=== PATIENT | female | born 1935 | race Caucasian/White ===

== ENCOUNTER 2018-06-04 20:19 | Inpatient (IN) | payer MEDICARE ==
[~2018-06-04 20:19] MED LIST: Heparin 1,000 UNITS/ML VIAL ONE
[2018-06-04] MEDS ORDERED: Lidocaine Viscous Sol 2% 15 ml UD Cup ONE (21:28)
[2018-06-04] MEDS ORDERED: Metoprolol Tartrate 5 MG/5 ML VIAL ONE (22:36)
[2018-06-04] MEDS ORDERED: Fleet Enema 133 ML BOT PR SCH (23:45)
[2018-06-04] MEDS ORDERED: Meropenem 2 GM in Admixture Fee 1 EACH IVPB SCH (23:45)
[2018-06-04] MEDS ORDERED: hydrALAZINE 20 MG/ML VIAL SLOW IVP PRN (23:45)
[2018-06-05] MEDS: Ipratropium Bromide 2.5 ml Neb NEB SCH ×3 (00:38→13:56)
[2018-06-05] MEDS: Sodium Chloride 0.45% 1,000 ML IV SCH (01:31)
[2018-06-05] MEDS: Acetaminophen 1,000 MG in Premix Bag 1 BAG IVPB PRN ×2 (01:39→21:00)
--- NOTE | 2018-06-05 03:56 | HP ---
HISTORY OF PRESENT ILLNESS: Eliana Barnes is an 83-year-old female who lives in [place]. She has been followed by Dr. Gibbs in the past. The patient presents to the emergency room, complaining of abdominal distention, bloating, and abdominal pain. She has a history of constipation. She has been taking iron. She reports having had a colonoscopy many years ago. She cannot recall when. She has been followed by Dr. Arvizu in the past. The patient on admission was found to have a white count of 8, hemoglobin 13. Comprehensive metabolic profile is essentially unremarkable with slightly elevated creatinine of 1.63. Looking at the QA records, she has had a history of chronic kidney disease and this creatinine elevation is on the lower side than of more normal side. She had a BNP of 215. She underwent a CAT scan of abdomen and pelvis suggested a splenic flexure mass, possibly malignancy with distention of the ascending and transverse colon and decompression of the distal colon. She has had an NG tube placed, small caliber. ALLERGIES: NONE. SOCIAL HISTORY: Tobacco, history of tobacco abuse. No use currently. Alcohol, none. MEDICATIONS: 1. Levothyroxine 75 mcg a day. 2. Furosemide 3 days a week. 3. Klor-Con 20 three days a week. 4. Plavix 75 mg a day. 5. Spironolactone 25 mg a day. 6. Iron 65 mg a day. 7. Calcium 600 mg a day. 8. a day. 9. Simvastatin 80 mg at bedtime. 10. Estradiol daily. 11. Amlodipine 5 mg a day. 12. Ranitidine 150 mg a day. 13. a day. 14. Metoprolol 25 mg a day. 15. Ambien 10 mg at bedtime. PAST SURGICAL HISTORY: Left carotid endarterectomy, partial thyroidectomy, ORIF of lumbar spine, hysterectomy, appendectomy. PAST MEDICAL HISTORY: 1. History of chronic back pain, lumbar surgery. 2. Hypothyroidism, treated medically. 3. Chronic obstructive pulmonary disease. 4. Hypertension. 5. PAD, Dr. Naif Singh has put a peripheral stent in her lower extremities. She has had a left carotid endarterectomy. Of note is that the patient reports that she saw Dr. Naif Singh last year, had a cardiac catheterization and she was told it was normal. REVIEW OF SYSTEMS: Ten-point noncontributory. PHYSICAL EXAMINATION: VITAL SIGNS: Weight 58 kg, blood pressure 180/53, heart rate 66, respirations 16, temperature 98.2 degrees. HEAD EARS EYES, NOSE, AND THROAT: Unremarkable. Sclerae nonicteric. SKIN: Nonjaundiced. LUNGS: Clear to auscultation. No wheezing. CARDIAC: Regular rate and rhythm. ABDOMEN: Soft, distended, tympanitic, and nontender. EXTREMITIES: No ankle edema. Palpable popliteal pulses. LABORATORY DATA: Sodium 137, potassium 4.2, GFR 28, BUN 22, creatinine 1.63. Liver function tests normal. White count 8, hemoglobin 13. ASSESSMENT AND PLAN: 1. History and CAT scan suggest splenic flexure tumor mass with obstruction. The patient is at risk for cecal perforation. She has an NG tube in place. We will leave it to suction. I have explained to her that I would recommend enemas tonight. GI consultation with colonoscopy, and if indeed there is obstruction, plan resection with colostomy. It was explained that this colostomy could be reversed in the future. Risks of infection, bleeding, and reoperation were explained. 2. Chronic obstructive pulmonary disease. 3. History of tobacco abuse. 4. Peripheral artery disease, history of stents in her legs and carotid endarterectomy. 5. Reports normal cardiac catheterization last year with Dr. Naif Singh. 6. Hypertension. Job ID: [id number]
[2018-06-05] MEDS ORDERED: Prevnar 13-Val Conj/PF 0.5 ML SYRINGE IM ONE (05:30)
[2018-06-05] MEDS: Pantoprazole 40 MG VIAL IVP SCH (09:22)
--- NOTE | 2018-06-05 12:57 | CON ---
DATE OF CONSULTATION: 06/05/2018 REASON FOR CONSULTATION: Colonic obstruction. CONSULTING PHYSICIAN: Dr. Roberto Carlos Law. HISTORY OF PRESENT ILLNESS: The patient is an 83-year-old female with past medical history of chronic lower back pain, hypothyroidism, COPD, hypertension, peripheral arterial disease, and tobacco abuse presenting with complaints of abdominal pain. She states that over the last 2 to 3 weeks she had been experiencing progressive worsening of her abdominal pain located primarily in the left lower quadrant but radiating to involve the entire abdomen. The pain is characterized as a cramping type sensation, constant, and would reach a severity of 10/10. The pain was worse with not having a bowel movement, but did not have any other clear exacerbating factors, better with passing gas and having a bowel movement. This was also associated with increased nausea, vomiting, and constipation that she has experienced "all her life." She states that she usually has approximately one solid bowel movement every 1 to 2 days that would require increased straining and sometimes the application of Vaseline to the anal orifice in order to facilitate defecation. Over the last 2 years, she has been taking iron supplements at the request of her primary care physician due to low iron, and has been having dark black solid stools since that time. Over the last 2 to 3 weeks, she has not noticed any significant change in her bowel habits with no change in stool caliber or frequency but does endorse a [place] type 1 stooling consistency. Otherwise, she denies any fevers, chills, dysphagia, odynophagia, GI bleeding, or weight loss. REVIEW OF SYSTEMS: A 10-category review of systems was obtained with all responses negative except for the pertinent positives as listed in HPI. PAST MEDICAL HISTORY: As per HPI. PAST SURGICAL HISTORY: Left carotid endarterectomy, partial thyroidectomy, ORIF of lumbar spine, hysterectomy, and appendectomy. FAMILY HISTORY: Denies any GI malignancies. SOCIAL HISTORY: Denies any tobacco, alcohol, or illicit drug use. OUTPATIENT MEDICATIONS: Reviewed. ALLERGIES: NO KNOWN DRUG ALLERGIES. PHYSICAL EXAMINATION: VITAL SIGNS: Temperature 97.9, pulse 52, blood pressure 159/62, respiratory rate 14, and saturating 98% on 2 L nasal cannula. LABORATORY DATA: CBC with a white blood cell count of 8.1, hemoglobin 13.4, hematocrit 42, and platelets 451. Chemistry with a sodium of 137, potassium 4.2, chloride 100, CO2 of 24, BUN 22, creatinine 1.63, glucose 135, AST 22, ALT 19, alkaline phosphatase 105, total bilirubin 0.4, albumin 4.2, lipase 17. CEA elevated at 9.74. IMAGING DATA: CT obtained prior to admission (only obtained through chart review). CAT scan suggesting a splenic flexure, tumor, or mass with probable obstruction as well as dilation of the colon proximal to this obstruction indicative of a colonic obstruction. ASSESSMENT AND PLAN: The patient is an 83-year-old female with past medical history of chronic lower back pain, hypothyroidism, chronic obstructive pulmonary disease, hypertension, peripheral arterial disease, and tobacco abuse, presenting with a colonic obstruction. Colonic obstruction: The patient is presenting with a 2 to 3 week history of progressive worsening, cramping abdominal pain located primarily in the left lower quadrant but radiating to involve the entire generalized abdomen. Per imaging, there is an obstructive type of mass/lesion located at the splenic flexure with dilation of the colon proximal to that, consistent with a colonic obstruction, which would generate her current clinical status. Upon interviewing the patient, she states that her last colonoscopy was greater than 5 to 10 years ago and performed by Dr. Arvizu with normal findings at that time. Based on the current constellation of symptoms and imaging performed outside this hospital, it is most consistent with a possible splenic flexure, colonic malignancy; however, the differential could include a hard stool plug (less likely) or ischemic colitis generating a masslike lesion contributing to obstruction. In order to characterize this lesion further, endoscopic intervention is recommended. RECOMMENDATIONS: 1. Would continue the patient on n.p.o. status in preparation for procedures today. 2. We will plan for a flexible sigmoidoscopy or possibly colonoscopy to visualize the entire colon and get a better idea of what if this lesion is at the splenic flexure as well as any synchronous lesions anywhere else in the colon. 3. Agree with the administration of Fleet Enema due to increased risk of perforation with oral prep required for usual colonoscopy. 4. We will confer with General Surgery Service about timing of possible surgery/resection of this lesion. 5. We will continue to follow. Please call with any questions. Job ID: [id number]
[2018-06-05] MEDS ORDERED: Fentanyl 250 MCG/5 ML VIAL ONE (13:31)
[2018-06-05] MEDS ORDERED: KETAMINE 100 MG/ML (5ML VIAL) ONE (13:45)
[2018-06-05] MEDS ORDERED: Bupivacaine HCl 0.5%/Epinephrine 1:200,000/PF 30 ml Vial ONE (13:50)
[2018-06-05] MEDS ORDERED: Lidocaine 2% PF 5 ML VIAL ONE (13:50)
[2018-06-05] MEDS ORDERED: Heparin 10,000 UNITS/1 ML VIAL ONE (13:50)
[2018-06-05] MEDS ORDERED: SUGAMMADEX SODIUM 200 MG/2 ML VIAL ONE (14:15)
[2018-06-05] MEDS ORDERED: Fleet Enema 133 ML BOT FS SCH (14:15)
--- NOTE | 2018-06-05 14:46 | PRG ---
DATE OF SERVICE: 06/05/2018 SUBJECTIVE: Eliana Barnes is doing well today. OBJECTIVE: VITAL SIGNS: Temperature 97.9, heart rate 52, blood pressure 159/62. NG tube output is not recorded. LUNGS: Clear to auscultation. CARDIAC: Regular rate and rhythm. No murmur or gallop. ABDOMEN: Soft, distended, tympanitic. NEUROLOGIC: She had an MO last night. LABORATORY DATA: CEA level is 9.74 this morning. Labs are not repeated. Preoperative hemoglobin 13 yesterday. The basic metabolic profile is normal. ASSESSMENT AND PLAN: Colon obstruction, possibly secondary to malignancy. Dr. Tinajero has seen her. We will plan colonoscopy on same anesthetic, and we will be prepared to do a laparotomy, left colon resection, colostomy. Risks and benefits discussed. She consents. Job ID: [id number]
[2018-06-05] MEDS ORDERED: Succinylcholine Chloride 20 MG/ML 10 ml SYRINGE FS ONE (15:27)
[2018-06-05] MEDS ORDERED: Rocuronium Bromide 10 MG/ML (10ML VIAL) ONE (15:27)
[2018-06-05] MEDS ORDERED: ePHEDrine/0.9% NaCl/PF SYRINGE 50 mg/10 ml ONE (15:27)
[2018-06-05] MEDS ORDERED: Calcium Chloride 1 GM/10 ML Abboject SYRINGE ONE ×2 (15:27→17:49)
[2018-06-05] MEDS ORDERED: Sodium Bicarb 50 MEQ/50 ML VIAL ONE (15:27)
[2018-06-05] MEDS ORDERED: Esmolol 100 MG/10 ML VIAL ONE (15:27)
[2018-06-05] MEDS ORDERED: EPINEPHrine 1 MG/10 ML Abboject SYRINGE ONE (15:27)
[2018-06-05] MEDS ORDERED: PROPOFOL 200 MG/20 ML VIAL ONE (15:27)
[2018-06-05] MEDS ORDERED: Hydrocortisone Sod Succ/PF 100 mg/2 ml Vial ONE (15:27)
[2018-06-05] MEDS ORDERED: Lidocaine 1% PF 5 ML VIAL ONE (15:27)
[2018-06-05] MEDS ORDERED: Norepinephrine 4 MG/4 ML VIAL ONE (16:54)
[2018-06-05] MEDS ORDERED: Sodium Bicarb 50 MEQ/50 ML Abboject 8.4% SYRINGE ONE (17:49)
[2018-06-05] MEDS ORDERED: Hydrocortisone Sod Succ/PF 250 mg/2 ml Vial ONE (17:51)
[2018-06-05] MEDS ORDERED: Ventilator Sedation Protocol 1 EACH FS SCH (18:00)
[2018-06-05] MEDS ORDERED: Lactated Ringer's 1,000 ML IV SCH ×2 (18:00)
[2018-06-05] MEDS ORDERED: Propofol BOLUS 1,000 MG/100 ML VIAL IV PRN (18:15)
[2018-06-05] MEDS ORDERED: DISCONTINUE PREVIOUS NARCOTIC PAIN MEDICATIONS AND BENZODIAZEPINES FS SCH (18:15)
[2018-06-05] MEDS ORDERED: Propofol 1,000 MG/100 ML VIAL IV PRN (18:15)
[2018-06-05] MEDS ORDERED: Fentanyl BOLUS 250 ML IVPB PRN (18:15)
[2018-06-05 18:45] LABS: Actual Bicarbonate (HCO3a) 16.2 mEq/L (22-28); Base Excess (BEa) -7.8 mEq/L (-2.0 to +3.0); CO2 Tension 28.6 mmHg (35.0-45.0); Calcium, Ionized 0.99 mmol/L (1.12-1.30); Carboxyhemoglobin (COHb) 0.2 gm% (0.0-3.0); Hemoglobin (Hb) 11.3 g/dL (12.0-16.0); O2 Tension (PaO2) 271.2 mmHg (> 60.0); Potassium - ABG Lab 3.98 mmol/L (3.70-5.30); pH, Arterial 7.37 (7.35-7.45)
[2018-06-05] MEDS: Lactated Ringer's 1,000 ML IV SCH (19:00)
[2018-06-05] MEDS ORDERED: Albuterol Sulfate 2.5 mg/3 ml Neb NEB SCH (19:00)
--- NOTE | 2018-06-05 19:18 | RAD ---
PORTABLE AP CHEST X-RAY 06/05/18 HISTORY: Patient on ventilator and intubated. Post surgery. COMPARISON: 06/04/18. FINDINGS: Endotracheal tube is noted in place with the tip overlying the T5-6 level and above the level of the radha. Nasogastric tube is noted in place with tip overlying the expected location of the gastric fu ndus. A left subclavian central venous catheter is noted in place with tip overlying the cavoatrial j unction. Dorsal column stimulator leads are again noted in place. There is mild increased density at the left lung base probably related to atelectasis. Calcified granuloma is seen at the right lung bas e. No pneumothorax is appreciated. The lungs are otherwise clear. Vascular calcifications seen in the thoracic aorta. Partial visualization of postsurgical changes of the lumbar spine. IMPRESSION: 1. Interval placement of lines and tubes as described above. 2. Atelectasis left lung base. POS: [facility]
[2018-06-05 19:22] LABS: INR-International Normal Ratio 1.8; Prothrombin Time 20.5 SEC (12.0-14.7)
[2018-06-05 19:23] LABS: #Monocytes 0.3 thou/uL (0.11-0.59); #Neutrophils 3.5 thou/uL (1.40-6.50); %Lymphocytes 19.9 % (21.0-51.0); %Monocytes 5.9 % (0.0-10.0); %Neutrophils 73.1 % (42.0-75.0); Hemoglobin 9.8 g/dL (12.0-16.0); Mean Corpuscular HGB CONC 33.9 g/dL (32.0-36.0); Mean Corpuscular Hemoglobin 31.5 pg (27.0-31.0); Mean Corpuscular Volume 92.9 fL (78.0-98.0); Mean Platelet Volume 7.6 fL (7.4-10.4); Platelet Count 153 thou/uL (130-400); RBC Distribution Width 12.1 % (11.5-14.5); Red Blood Cell (RBC) Count 3.11 mill/uL (4.20-5.40); White Blood Cell (WBC) Count 4.8 thou/uL (4.8-10.8)
[2018-06-05] MEDS: Piperacillin/Tazobactam 3.375 GM in Sodium Chloride 0.9% 100 ML IVPB SCH (20:00)
[2018-06-05] MEDS ORDERED: Enoxaparin Sodium 40 MG/0.4 ML SYRINGE SC SCH (21:00)
--- NOTE | 2018-06-05 21:09 | OP ---
DATE OF PROCEDURE: 06/05/2018 PROCEDURE: Flexible sigmoidoscopy. INDICATION FOR PROCEDURE: Splenic flexure mass with possible colonic obstruction. DESCRIPTION OF PROCEDURE: After the risks and benefits of the procedure were explained to the patient including risks of bleeding, infection, perforation, reactions to anesthesia, aspiration and/or pain, informed consent was obtained. The patient was then taken to the operating suite where general anesthesia was administered with endotracheal tube intubation. Once the patient was intubated and sedated. She was placed in the left lateral decubitus position in anticipation for the colonoscopy portion of the procedure. After a digital rectal exam was performed, the standard colonoscope was introduced into the rectum and advanced to approximately 40 cm, at which point significant resistance was encountered. Despite manipulations with the scope reduction further progress could not be made. However, at one point, there was visualization of non-colonic mucosa indicating perforation. The quality of the prep was poor with poor visualization of the colonic mucosa throughout the entire procedure and with visualization of non-colonic mucosa, the procedure was then terminated immediately and all equipment was withdrawn from the patient in anticipation for open surgery. DIGITAL RECTAL EXAM: Small external hemorrhoids were seen on external examination with perianal skin tags. COLON FINDINGS: Significant amount of black colored solid stool was seen throughout the entire colon, thereby making visualization extremely difficult with passage of the scope. The scope was able to be advanced to approximately 40-50 cm past the anal verge, at which point there was a significant amount of resistance. Despite manipulations with the scope, further visualization could not be achieved. However, at that time, there was a change in the lining of the mucosa with non-colonic mucosa visualized, at which point there was high degree of suspicion for perforation. Upon further evaluation, there appeared to be serosa type tissue, thereby confirming perforation of the colon. The procedure was then immediately aborted at that time with transfer of the patient to Dr. Law's care for surgery and colonic resection of the mass and now repair of perforation from the flexible sigmoidoscopy. On careful withdrawal, no other significant lesions were seen. Rectal retroflexion was not performed. IMPRESSION: 1. Poor colonic preparation with poor visualization of the colonic mucosa thereby precluding evaluation of the colonic mucosa making passage difficult. 2. Perforation of the colonic mucosa at approximately 40-50 cm past the anal verge. 3. Small external hemorrhoids and perianal skin tags. RECOMMENDATIONS: 1. We would defer to General Surgery Service for urgent laparotomy and repair of colonic perforation as well as surgical excision of the splenic flexure mass. 2. We will continue to follow. Please call with any questions. Job ID: [id number]
--- NOTE | 2018-06-05 21:45 | OP ---
DATE OF PROCEDURE: 06/05/2018 PREOPERATIVE DIAGNOSES: 1. Malignant obstruction, splenic flexure. 2. Transverse colon perforation with colonoscopy. POSTOPERATIVE DIAGNOSES: 1. Malignant obstruction, splenic flexure. 2. Transverse colon perforation with colonoscopy. 3. Malignant obstruction distal transverse colon with adherent omentum. 4. Transmural disease. PROCEDURE PERFORMED: Left subclavian vein triple-lumen catheter. Dr. Tinajero performed a flexible sigmoidoscopy, exploratory laparotomy, splenic flexure mobilization, resection of the distal transverse colon, splenic flexure, descending colon, sigmoid colon with Kiran's pouch marked with a 2-0 Prolene suture. Colostomy not formed. The patient was on high-dose pressors at the end of case. The colon to form the colostomy looked viable, but questionable. The patient had adhesiolysis performed and there was a window in the ileal mesentery and with high-dose pressors, a small bowel was questionably viable, thus decision was made to leave an open abdomen with an ABThera and take a second look tomorrow, pending clinical course. ANESTHESIA: General. INFUSIONS: Two units packed cells. DESCRIPTION OF PROCEDURE: The patient was taken to the operating room where under general anesthesia, placed a left subclavian vein central line. Infraclavicular approach performed. Subclavian vein cannulated. J-wire threaded. Seldinger technique was used to place a triple-lumen catheter, removed the J-wire, secured the catheter with 2-0 silk suture, sterile dressing applied. Aspirated blood, flushed with saline solution. Dr. Tinajero entered the room, performed a colonoscopy. He could not get past 40 cm and suspected a perforation of the sigmoid. The patient was then placed in a supine position. Abdomen prepared with ChloraPrep and draped in routine fashion. Briggs catheter was placed at the beginning of the procedure and left in place. Abdomen draped in routine fashion. Incision was made in midline, carried down through skin and subcutaneous tissue, midline fascia. Proximal colon was markedly dilated. There was a malignant tumor in the distal transverse colon with adherent omentum, it was transmural. The patient had a perforation of sigmoid colon. There are unexpected adhesions of the small bowel to the omentum into the colon, sigmoid. These were dense. Careful dissection carried out. Enterotomy sustained in the mid ileum. Segment of ileum resected using the LigaSure and 2-0 silk ties, performing [id number] anastomosis with staple technique, blue load 2 fires. Once this was completed, mesentery closed with 3-0 silk and anastomosis protected with interrupted Lembert suture with 3-0 silk. Good anastomosis palpated. The right colon was markedly dilated. Bookwalter retractor used for exposure. Distal transverse colon, omentum taken down from the mid transverse colon distally toward the splenic flexure using the cautery and LigaSure. A large amount of omentum left adherent to the malignant tumor with en bloc resection. The splenic flexure, descending sigmoid colon mobilized. The perforation of the sigmoid colon appreciated and distal to this, the colon was very adherent to the small bowel and careful dissection carried out. Lower sigmoid, upper rectum divided with a contour stapler. The left ureter identified, kept free of harm as the mesentery divided between clamps and 2-0 silk ties and LigaSure. Dissection carried out mobilizing the descending colon, splenic flexure, transverse colon, dividing the colon with a LAYLA stapler, proximal to the malignancy. The patient's pressure dropped and required pressors. Blood loss was probably 200 mL at most. The patient was aggressively resuscitated. The ileum had varying degrees of viability. At some point, I felt it was viable and other times it was dusky thus considering the mesenteric defect that resulted from the adhesiolysis, although the transverse colon appeared to be viable with the middle colic vessels left intact, directly visualized, it was felt best to leave an open abdomen and re-evaluate after she stabilizes. For this reason, abdominal cavity had been thoroughly irrigated with about 8 L of saline solution. Good hemostasis obtained with 3-0 silk sutures and LigaSure and cautery. Sponge and needle counts were correct. ABThera applied, open abdomen left and the patient transferred to the intensive care unit in critical condition on the ventilator. Job ID: [id number]
[2018-06-05 22:12] LABS: #Lymphocytes 0.6 thou/uL (1.20-3.40); #Monocytes 0.8 thou/uL (0.11-0.59); #Neutrophils 5.9 thou/uL (1.40-6.50); %Basophils 0.2 % (0.0-1.0); %Eosinophils 0.3 % (0.0-10.0); %Lymphocytes 8.1 % (21.0-51.0); %Monocytes 10.5 % (0.0-10.0); %Neutrophils 80.9 % (42.0-75.0); Hemoglobin 7.5 g/dL (12.0-16.0); Mean Corpuscular HGB CONC 33.7 g/dL (32.0-36.0); Mean Corpuscular Hemoglobin 31.3 pg (27.0-31.0); Mean Corpuscular Volume 92.7 fL (78.0-98.0); Mean Platelet Volume 7.1 fL (7.4-10.4); Platelet Count 330 thou/uL (130-400); RBC Distribution Width 11.9 % (11.5-14.5); White Blood Cell (WBC) Count 7.2 thou/uL (4.8-10.8)
[2018-06-05 23:11] LABS: Puncture Site LINE
[2018-06-05] MEDS: fentaNYL Citrate/PF 2,000 MCG in Sodium Chloride 0.9% 60 ML IV SCH (23:54)
[2018-06-06] MEDS: Piperacillin/Tazobactam 3.375 GM in Sodium Chloride 0.9% 100 ML IVPB SCH ×4 (00:15→18:02)
[2018-06-06] MEDS: Morphine 2 MG/ML SYRINGE SLOW IVP PRN (01:00)
[2018-06-06] MEDS: Lorazepam 2 MG/ML VIAL SLOW IVP PRN ×3 (01:22→21:45)
--- NOTE | 2018-06-06 03:37 | CON ---
DATE OF CONSULTATION: 06/05/2018 HISTORY OF PRESENT ILLNESS: Ms. Barnes is an 83-year-old female. Apparently, she has had abdominal pain for some time. History is obtained from the records and my discussion with Dr. Law since she is intubated. Her p.o. intakes probably dropped during this period of time, which has lasted over 3 weeks. She was found to have findings consistent with a bowel obstruction. She subsequently undergone operative procedure. She had intraoperative hypotension. It was not clear what the cause was, it was felt that it would be unwise to pull up an ostomy with the potential existing for bowel ischemia. She was transferred to the critical care unit and intubated. PAST MEDICAL HISTORY: Remarkable for; 1. Partial thyroidectomy. 2. Lumbar spine surgery. 3. Hysterectomy. 4. Appendectomy. 5. History of carotid endarterectomy. SOCIAL HISTORY: Nonsmoker, nondrinker, nondrug user. FAMILY HISTORY: Negative for lung disease or gastrointestinal disease in a young age. REVIEW OF SYSTEMS: Not obtainable. PHYSICAL EXAMINATION: VITAL SIGNS: Blood pressure improved by the time she arrived to the critical care unit. Blood pressure being high at 131/49. She is afebrile. Heart rate 95, respiratory rate in the teens, oximetry is 100%. HEENT: Pupils are reactive. Sclerae anicteric. NECK: Supple. LUNGS: Clear. HEART: Regular rhythm. S1, S2 are normal. Abdomen is bandaged. She has a wound VAC in place. EXTREMITIES: Warm. LABORATORY DATA: White count 4.8, hemoglobin 9.8, and platelets 153,000. Cortisol level was 34 drawn in the OR. Because of her hypotension, I recommended this followed by stress dose of steroids, but it turns out she does not have relative adrenal insufficiency, so we will need to continue steroids. She did have an elevated CEA at 9.74. IMPRESSION: Status post resection of an obstructing colon cancer. She will go back to the OR either tomorrow or the next day. She will remain mechanically ventilated and sedated. Empiric broad antimicrobial therapy has been initiated. I will be happy to follow the other physicians caring for. Routine lab and x-rays have been ordered. Critical care time, 30 minutes. Job ID: [id number] MTDD
[2018-06-06] MEDS: Lactated Ringer's 1,000 ML IV SCH ×3 (03:53→18:02)
[2018-06-06 04:10] LABS: Anion Gap 17 mmol/L (10-20); BUN (Urea Nitrogen) 21 mg/dL (9.8-20.1); Calc. Creatinine Clearance 30 mL/min (70-130); Calcium 6.5 mg/dL (7.8-10.44); Carbon Dioxide 14 mmol/L (23-31); Chloride 115 mmol/L (98-107); Estimated GFR-MDRD 39; Glucose 185 mg/dL (83-110); Magnesium 1.2 mg/dL (1.6-2.6); Potassium 3.8 mmol/L (3.5-5.1); Sodium 142 mmol/L (136-145)
[2018-06-06 04:15] LABS: Hemoglobin 9.5 g/dL (12.0-16.0); Mean Corpuscular HGB CONC 34.5 g/dL (32.0-36.0); Mean Corpuscular Hemoglobin 32.2 pg (27.0-31.0); Mean Corpuscular Volume 93.5 fL (78.0-98.0); Mean Platelet Volume 7.8 fL (7.4-10.4); Platelet Count 252 thou/uL (130-400); RBC Distribution Width 12.3 % (11.5-14.5); Red Blood Cell (RBC) Count 2.94 mill/uL (4.20-5.40); White Blood Cell (WBC) Count 7.1 thou/uL (4.8-10.8)
[2018-06-06 04:29] LABS: INR-International Normal Ratio 1.3; Prothrombin Time 16.7 SEC (12.0-14.7)
[2018-06-06 04:47] LABS: Phosphorus 3.3 mg/dL (2.3-4.7)
[2018-06-06] MEDS ORDERED: Norepinephrine 8 MG/250 ML BAG IVPB PRN (05:28)
[2018-06-06] MEDS ORDERED: Sodium Chloride 0.9% 1,000 ML IV SCH (05:30)
[2018-06-06 06:51] LABS: Band 62 % (5-11); Lymphocytes 6 % (21-51); MDiff Complete? YES; Metamyelocyte 2 % (0-0); Monocytes 10 % (0-10); Myelocyte 3 % (0-0); Neutrophil 17 % (42-75); Reflex for Review?? YES
[2018-06-06 07:10] LABS: Actual Bicarbonate (HCO3a) 13.8 mEq/L (22-28); Base Excess (BEa) -12.5 mEq/L (-2.0 to +3.0); CO2 Tension 33.3 mmHg (35.0-45.0); Calcium, Ionized 0.95 mmol/L (1.12-1.30); Carboxyhemoglobin (COHb) 0.8 gm% (0.0-3.0); Hemoglobin (Hb) 10.8 g/dL (12.0-16.0); Potassium - ABG Lab 3.61 mmol/L (3.70-5.30)
[2018-06-06 07:12] LABS: ALV-art Gradient 99.575 (0-20); Puncture Site RRA; pH, Arterial 7.24 (7.35-7.45)
--- NOTE | 2018-06-06 08:59 | RAD ---
PORTABLE CHEST: Date: 06/06/18 PROVIDED CLINICAL HISTORY: Respiratory insufficiency. FINDINGS: Comparison with 06/05/18. Significant interval change with respect to the prior examination is noted apparent. IMPRESSION: As above. POS: [facility]
[2018-06-06] MEDS: Pantoprazole 40 MG VIAL IVP SCH (09:21)
[2018-06-06] MEDS: Sodium Chloride 0.45% 1,000 ML IV SCH (09:23)
[2018-06-06] MEDS: Amiodarone 450 MG in Dextrose 5% in Water 250 ML IVPB SCH ×2 (10:14→17:56)
--- NOTE | 2018-06-06 10:32 | PRG ---
DATE OF SERVICE: 06/06/2018 SUBJECTIVE: Eliana Barnes is in ICU on the ventilator. She is postop day #1 colon resection and open abdomen ABThera treatment. She has been on a beta-juan in the past. She is now in intermittent atrial fibrillation, 100 to 120. When her heart rate is up, her blood pressure dropped in the 90 to 100, otherwise 110 to 115. Early this morning, she was having more bloody output of her ABThera drain and she then was on platelets. She received a unit of platelets and her PT was elevated, and she received a unit of fresh frozen plasma. Her drainage from her ABThera has diminished. Last night, she had a hemoglobin of 9.5 up from 7.5 previously, and she is given 1 unit of blood and her pressure improved. This morning, she is sedated on the ventilator. OBJECTIVE: VITAL SIGNS: Heart rate 100 to 115 atrial fibrillation, blood pressure 133/50. Urine output is 30 to 40 per hour. LUNGS: Clear to auscultation. CARDIAC: Irregularly irregular. ABDOMEN: Slightly distended and tender. EXTREMITIES: Unremarkable. LABORATORY DATA: Chest x-ray. ASSESSMENT AND PLAN: Open abdomen, status post colon resection for obstructing colon. PLAN: Expiration tomorrow. We would leave on the ventilator. We would try to control her atrial fibrillation and resuscitate her today. Job ID: [id number]
[2018-06-06 10:57] LABS: Anion Gap 15 mmol/L (10-20); BUN (Urea Nitrogen) 22 mg/dL (9.8-20.1); Calc. Creatinine Clearance 27 mL/min (70-130); Calcium 6.4 mg/dL (7.8-10.44); Carbon Dioxide 14 mmol/L (23-31); Chloride 116 mmol/L (98-107); Estimated GFR-MDRD 35; Glucose 190 mg/dL (83-110); Potassium 3.6 mmol/L (3.5-5.1); Sodium 141 mmol/L (136-145)
[2018-06-06 11:03] LABS: Band 56 % (5-11); Hemoglobin 11.6 g/dL (12.0-16.0); Lymphocytes 11 % (21-51); MDiff Complete? YES; Mean Corpuscular HGB CONC 33.6 g/dL (32.0-36.0); Mean Corpuscular Hemoglobin 31.2 pg (27.0-31.0); Mean Corpuscular Volume 92.8 fL (78.0-98.0); Mean Platelet Volume 7.3 fL (7.4-10.4); Metamyelocyte 2 % (0-0); Monocytes 3 % (0-10); Neutrophil 28 % (42-75); Platelet Count 220 thou/uL (130-400); RBC Distribution Width 12.9 % (11.5-14.5); Red Blood Cell (RBC) Count 3.71 mill/uL (4.20-5.40); White Blood Cell (WBC) Count 13.5 thou/uL (4.8-10.8)
--- NOTE | 2018-06-06 12:16 | PRG ---
DATE OF SERVICE: 06/06/2018 SUBJECTIVE: Eliana Barnes is sedated for mechanical ventilation. OBJECTIVE: VITAL SIGNS: Blood pressure 101/70, heart rate is 106, respiratory rate is 8 this morning, but now has increased to 20 because of metabolic acidosis. Blood pressure 109/44 at 1116 hours. LUNGS: Remarkable for coarse equal breath sounds. HEART: Irregular rhythm, S1 and S2 are normal. She has converted to atrial fibrillation. Amiodarone has been started. ABDOMEN: Distended. EXTREMITIES: Without edema. LABORATORY DATA: Sodium 141, potassium 3.6, chloride 116, bicarb 14, BUN 22, and creatinine 1.44. White count 13.5, hemoglobin 11.6, and platelets are 220,000. IMPRESSION: 1. Status post laparotomy for obstructing colon cancer. 2. Atrial fibrillation. She has a history of atrial fibrillation in the past. She is now on an amiodarone drip. 3. Hyperchloremic acidosis associated with volume resuscitation intraoperatively. Her ventilator at bedtime has been adjusted to correct her pH. We will continue with supportive care. She is tentatively on schedule to go back to the operating room tomorrow. Critical care time, 30 minutes. Job ID: [id number]
[2018-06-06] MEDS: Sodium Chloride 0.9% 500 ML IVPB SCH ×2 (16:03→17:38)
[2018-06-06 18:28] LABS: Band 58 % (5-11); Eosinophils 1 % (0-10); Hemoglobin 9.7 g/dL (12.0-16.0); Lymphocytes 6 % (21-51); MDiff Complete? YES; Mean Corpuscular HGB CONC 34.2 g/dL (32.0-36.0); Mean Corpuscular Hemoglobin 30.5 pg (27.0-31.0); Mean Corpuscular Volume 89.1 fL (78.0-98.0); Mean Platelet Volume 7.4 fL (7.4-10.4); Monocytes 4 % (0-10); Neutrophil 31 % (42-75); Platelet Count 194 thou/uL (130-400); Platelet Morphology Comment Appears Adequate; RBC Distribution Width 13.1 % (11.5-14.5); Red Blood Cell (RBC) Count 3.18 mill/uL (4.20-5.40); White Blood Cell (WBC) Count 13.4 thou/uL (4.8-10.8)
[2018-06-06] MEDS: fentaNYL Citrate/PF 2,000 MCG in Sodium Chloride 0.9% 60 ML IV SCH (19:02)
[2018-06-07] MEDS: Piperacillin/Tazobactam 3.375 GM in Sodium Chloride 0.9% 100 ML IVPB SCH ×5 (00:45→23:49)
[2018-06-07] MEDS: Lactated Ringer's 1,000 ML IV SCH ×2 (01:05→11:14)
[2018-06-07 04:42] LABS: Anion Gap 12 mmol/L (10-20); BUN (Urea Nitrogen) 24 mg/dL (9.8-20.1); Calc. Creatinine Clearance 24 mL/min (70-130); Calcium 6.6 mg/dL (7.8-10.44); Carbon Dioxide 17 mmol/L (23-31); Chloride 115 mmol/L (98-107); Estimated GFR-MDRD 30; Glucose 99 mg/dL (83-110); Potassium 3.4 mmol/L (3.5-5.1); Sodium 141 mmol/L (136-145)
[2018-06-07 04:43] LABS: Band 53 % (5-11); Hemoglobin 10.2 g/dL (12.0-16.0); Lymphocytes 6 % (21-51); MDiff Complete? YES; Mean Corpuscular HGB CONC 33.7 g/dL (32.0-36.0); Mean Corpuscular Hemoglobin 30.7 pg (27.0-31.0); Mean Corpuscular Volume 91.2 fL (78.0-98.0); Mean Platelet Volume 7.7 fL (7.4-10.4); Monocytes 7 % (0-10); Neutrophil 34 % (42-75); Platelet Count 198 thou/uL (130-400); RBC Distribution Width 13.3 % (11.5-14.5); White Blood Cell (WBC) Count 15.4 thou/uL (4.8-10.8)
[2018-06-07 06:34] LABS: Base Excess (BEa) -5.4 mEq/L (-2.0 to +3.0); Calcium, Ionized 0.94 mmol/L (1.12-1.30); Carboxyhemoglobin (COHb) 0.2 gm% (0.0-3.0); O2 Tension (PaO2) 110.4 mmHg (> 60.0); pH, Arterial 7.47 (7.35-7.45)
[2018-06-07 06:35] LABS: Puncture Site RRA
--- NOTE | 2018-06-07 09:12 | RAD ---
CHEST 1 VIEW: COMPARISON: 06/06/2018. HISTORY: Respiratory distress. Sepsis. Ventilated patient. FINDINGS: Redemonstration of endotracheal tube, nasogastric tube, and a left-sided central venous catheter, unc hanged in position. Dorsal column stimulators are also noted. There is atherosclerosis of the aorta . Normal cardiac silhouette. Stable calcified granuloma of the right lung base. No consolidation o r masses. No pneumothorax or osseous abnormalities. IMPRESSION: No acute cardiopulmonary process. POS: [facility]
[2018-06-07] MEDS: Pantoprazole 40 MG VIAL IVP SCH (09:30)
[2018-06-07] MEDS ORDERED: Potassium Phosphate 15 MMOL in Sodium Chloride 0.9% 250 ML 250 ML IV PRN ×2 (10:51→11:42)
[2018-06-07] MEDS ORDERED: CCU ELECTROLYTE REPLACEMENT PROTOCOL FS PRN ×2 (10:51→11:42)
[2018-06-07] MEDS ORDERED: Magnesium 2 GM/NS 0.9% 100 ML 2 GM in Premix Bag 1 BAG IVPB PRN ×2 (10:51→11:42)
[2018-06-07] MEDS ORDERED: Potassium Phosphate 12 MMOL in Sodium Chloride 0.9% 250 ML 250 ML IV PRN ×2 (10:51→11:42)
[2018-06-07] MEDS ORDERED: Potassium Chloride 40 MEQ in Premix Bag 1 BAG IVPB PRN ×2 (10:51→11:42)
[2018-06-07] MEDS ORDERED: Potassium Chloride 20 MEQ TAB PO PRN ×2 (10:51→11:42)
[2018-06-07] MEDS ORDERED: Potassium Chloride 40 MEQ in Sodium Chloride 0.9% 250 ML 250 ML IVPB PRN ×2 (10:51→11:42)
[2018-06-07] MEDS ORDERED: Magnesium Oxide 400 MG TAB PO PRN ×4 (10:51→11:42)
[2018-06-07] MEDS ORDERED: Potassium Phosphate 9 MMOL in Sodium Chloride 0.9% 100 ML IVPB PRN ×2 (10:51→11:42)
[2018-06-07] MEDS ORDERED: Phenylephrine HCL 10 MG/ML VIAL ONE (12:44)
[2018-06-07] MEDS ORDERED: Fentanyl 100 MCG/2 ML VIAL ONE (12:44)
--- NOTE | 2018-06-07 13:38 | PRG ---
DATE OF SERVICE: 06/07/2018 SUBJECTIVE: Eliana Barnes is doing well today. Plan is to take her to the operating room to wash her abdomen and more or less likely to form a colostomy. She is sedated. OBJECTIVE: VITAL SIGNS: Heart rate 104 and blood pressure 134/83. Gastric drainage 650 mL over 24 hours. Urine output 685 mL. ABThera 650 mL, 24 hours. LABORATORY DATA: White count 15, hemoglobin 10, 33% bands. Sodium 141, potassium 3.4 , chloride 115, carbon dioxide 17, creatinine 1.65, and BUN 24. ASSESSMENT AND PLAN: 1. Obstructing colon cancer, status post left colectomy, ABThera. Plan abdominal washout today. Colostomy formation. Bowel resection is indicated. I have talked to her , risks and benefits. 2. Respiratory failure. No acute pulmonary process. 3. Continue supportive care. Await pathology. Hopefully, can definitively close her abdomen today. Job ID: [id number]
--- NOTE | 2018-06-07 14:04 | PRG ---
DATE OF SERVICE: 06/07/2018 SUBJECTIVE: I met with Ms. Barnes's . I answered all his questions. She is hemodynamically stable overnight. OBJECTIVE: VITAL SIGNS: Heart rate is 100, respiratory rate 16, blood pressure 134/53. LUNGS: Clear. HEART: Regular rhythm. ABDOMEN: Tender. EXTREMITIES: Warm. She moves all extremities to command. She nods to questions. LABORATORY DATA: White count 15.4, hemoglobin 10.2, platelets 198. Sodium 141, potassium 3.4, chloride 115, bicarb 17, BUN 24, creatinine 1.65. PH 7.47, CO2 of 24, PO2 110. Her ventilator was turned down. Intake and output positive, 3359. IMPRESSION: 1. Status post resection of obstructing colon cancer for repeat abdominal exploration and washout today. 2. Acute kidney injury on top of chronic kidney disease, likely secondary to the operative procedure, abdominal third spacing of volume and transient hypotension. I suspect this will stabilize. 3. Advanced age. Hopefully, she will have her surgery today and hopefully she will have abdominal closure and a colostomy when she comes back. She will remain mechanically ventilated for now. Hopefully, she will wean in 24 to 48 hours. Critical care time 30 minutes. Job ID: [id number]
[2018-06-07] MEDS ORDERED: Rocuronium Bromide 10 MG/ML (10ML VIAL) ONE (14:47)
[2018-06-07] MEDS ORDERED: PHENYLEPHRINE-NS 100 MCG/ML 10 ML SYRINGE ONE (14:47)
[2018-06-07] MEDS ORDERED: PROPOFOL 200 MG/20 ML VIAL ONE (14:47)
--- NOTE | 2018-06-07 15:32 | OP ---
DATE OF PROCEDURE: 06/07/2018 PREOPERATIVE DIAGNOSES: Obstructing colon cancer, severe dehydration, open abdomen, status post resection of distal transverse, descending, sigmoid colon with balance segment colon stapled and status post small bowel resection with previously questionable viability. POSTOPERATIVE DIAGNOSES: Obstructing colon cancer, severe dehydration, open abdomen, status post resection of distal transverse, descending, sigmoid colon with balance segment colon stapled and status post small bowel resection with previously questionable viability with viable small bowel and colon. No resection necessary. PROCEDURES PERFORMED: Abdominal washout, ABThera removal, Bebeto application near the left pelvis over the ureter area where there was some oozing, colostomy, Seprafilm application with viscera and abdominal wall. Of note, no remaining omentum to cover the bowel. Wound VAC application. ANESTHESIA: General. BLOOD LOSS: Negligible. DESCRIPTION OF PROCEDURE: The patient was taken to the operating room, once in supine position under general anesthesia (previously on the vent), ABThera was removed, abdomen prepared with Betadine and draped in routine fashion. Abdominal cavity thoroughly irrigated with saline solution. Irrigant evacuated. There was no enteric leakage. No purulent material noted. Bowel was healthy. All bowel was viable. Colon had been previously mobilized and at this point, sponge and instrument counts were correct. A defect was made in the left lower quadrant, excising ellipse of skin, subcutaneous tissue, and a cruciate incision was made in the anterior rectus fascia. Muscle was split and posterior peritoneum/fascia opened, dilated two fingerbreadths in colon brought through this defect. Abdominal cavity irrigated. Irrigant evacuated. Bebeto applied over the ureter area and raw surface of Gerota fascia. Good hemostasis noted. Two sheets of Seprafilm placed between the viscera and the abdominal wall. Fascia closed with continuous suture and #1 PDS. Skin and subcutaneous tissues debrided sharply. Hemostasis was gained. Skin was approximated loosely in the midline about the umbilicus. Otherwise, left open above and low for wound VAC application. Colostomy maturation undertaken excising the staple line and placed in four quadrant Jeevan sutures of 3-0 Vicryl and simple sutures of 3-0 Vicryl to complete colostomy maturation. Colostomy appliance secured and wound Care Team placed wound VAC. The patient tolerated the procedure well. Job ID: [id number]
[2018-06-07] MEDS: Potassium Chloride 20 MEQ in Lactated Ringer's 1,000 ML IV SCH ×2 (16:03→23:49)
[2018-06-07] MEDS: fentaNYL Citrate/PF 2,000 MCG in Sodium Chloride 0.9% 60 ML IV SCH (16:11)
[2018-06-07] MEDS ORDERED: niCARdipine 20MG In NaCl 20 MG/200 ML BAG IVPB SCH (16:45)
[2018-06-07] MEDS ORDERED: niCARdipine HCl 25 MG in Sodium Chloride 0.9% 250 ML 240 ML IVPB PRN (19:49)
[2018-06-07] MEDS ORDERED: Sodium Chloride 0.9% 1,000 ML IV SCH (20:00)
[2018-06-07] MEDS: Enoxaparin Sodium 30 MG/0.3 ML SYRINGE SC SCH (20:58)
[2018-06-07] MEDS: Amiodarone 450 MG in Dextrose 5% in Water 250 ML IVPB SCH (23:49)
[2018-06-08] MEDS: Piperacillin/Tazobactam 3.375 GM in Sodium Chloride 0.9% 100 ML IVPB SCH ×3 (05:31→17:59)
[2018-06-08 05:36] LABS: Anion Gap 13 mmol/L (10-20); BUN (Urea Nitrogen) 23 mg/dL (9.8-20.1); Calc. Creatinine Clearance 25 mL/min (70-130); Calcium 6.4 mg/dL (7.8-10.44); Carbon Dioxide 17 mmol/L (23-31); Chloride 116 mmol/L (98-107); Estimated GFR-MDRD 32; Glucose 105 mg/dL (83-110); Potassium 3.9 mmol/L (3.5-5.1); Sodium 142 mmol/L (136-145)
[2018-06-08 05:37] LABS: Phosphorus 1.4 mg/dL (2.3-4.7)
[2018-06-08 05:39] LABS: Magnesium 0.9 mg/dL (1.6-2.6)
[2018-06-08 05:41] LABS: Hemoglobin 11.3 g/dL (12.0-16.0); Mean Corpuscular HGB CONC 32.1 g/dL (32.0-36.0); Mean Corpuscular Hemoglobin 29.6 pg (27.0-31.0); Mean Corpuscular Volume 92.3 fL (78.0-98.0); Mean Platelet Volume 8.3 fL (7.4-10.4); Platelet Count 171 thou/uL (130-400); RBC Distribution Width 13.5 % (11.5-14.5); Red Blood Cell (RBC) Count 3.83 mill/uL (4.20-5.40); White Blood Cell (WBC) Count 14.2 thou/uL (4.8-10.8)
[2018-06-08 05:50] LABS: Band 24 % (5-11); Lymphocytes 2 % (21-51); MDiff Complete? YES; Monocytes 2 % (0-10); Neutrophil 72 % (42-75)
[2018-06-08] MEDS ORDERED: Magnesium 2 GM/50 ML 2 GM in Premix Bag 1 BAG IVPB SCH (07:00)
[2018-06-08 07:17] LABS: Actual Bicarbonate (HCO3a) 17.3 mEq/L (22-28); Base Excess (BEa) -6.2 mEq/L (-2.0 to +3.0); CO2 Tension 28.2 mmHg (35.0-45.0); Calcium, Ionized 0.91 mmol/L (1.12-1.30); Carboxyhemoglobin (COHb) 0.4 gm% (0.0-3.0); Hemoglobin (Hb) 11.3 g/dL (12.0-16.0); O2 Tension (PaO2) 136.6 mmHg (> 60.0); Potassium - ABG Lab 3.88 mmol/L (3.70-5.30); pH, Arterial 7.41 (7.35-7.45)
[2018-06-08 07:19] LABS: Puncture Site RRA
[2018-06-08] MEDS ORDERED: Magnesium Sulfate 3 GM, Admixture Fee 1 EACH in Sodium Chloride 0.9% 100 ML IVPB SCH (07:30)
--- NOTE | 2018-06-08 07:56 | RAD ---
PORTABLE CHEST: COMPARISON: Prior day's study. HISTORY: Sepsis. Heart size appears enlarged. Endotracheal tube is in satisfactory position. Left subclavian line is unchanged in position. There is some minimal increased density in the bases probably related to don e subsegmental atelectasis, stable. Dorsal column stimulator is present. IMPRESSION: Stable exam. POS: [facility]
[2018-06-08] MEDS: Potassium Chloride 20 MEQ in Lactated Ringer's 1,000 ML IV SCH ×3 (08:06→22:21)
[2018-06-08] MEDS: Pantoprazole 40 MG VIAL IVP SCH (08:52)
--- NOTE | 2018-06-08 09:29 | PRG ---
DATE OF SERVICE: 06/08/2018 35 minutes of critical time. SUBJECTIVE: The patient is awake. She was on SIMV rate of 4 this morning with very low pressure support and breathing well. She will follow commands without difficulty. OBJECTIVE: VITAL SIGNS: Her temperature is 98.5, pulse 102, blood pressure 162/41, currently on amiodarone drip, but not on Levophed or nicardipine. Intake for 24 hours was 4561, output 1347. Weight 131 pounds. HEENT: Unremarkable. NECK: No JVD. CHEST: Clear anteriorly. CARDIAC: S1 and S2, regular. ABDOMEN: Colostomy in midline, wound VAC noted. EXTREMITIES: No edema. LABORATORY DATA: Sodium 142, potassium 3.9, BUN 23, creatinine 1.5, chloride 116, and CO2 of 17. White blood cell count 14.2, hematocrit 35.3, and platelet count 171. Her x-ray is clear. ASSESSMENT: Postop from laparotomy, currently on mechanical ventilation. PLAN: She can be extubated and observed. We may have to go down the IV fluid rate, will follow and check her several times throughout the day. Job ID: [id number]
[2018-06-08] MEDS: Lactated Ringer's 1,000 ML IV SCH (10:29)
--- NOTE | 2018-06-08 13:22 | PQF ---
CLINICAL DOCUMENTATION IMPROVEMENT CLARIFICATION FORM: ICD-10 Updated PLEASE DO AN ADDENDUM TO THE PROGRESS NOTE WITH ANY DOCUMENTATION UPDATES OR ADDITIONS AND CARRY THROUGH TO DC SUMMARY. THANK YOU. DATE: 06/08/18 ATTN: DR. RANDHAWA Please exercise your independent, professional judgment in responding to the clarification form. Clinical indicators are provided on the bottom of this form for your review Please check appropriate box(es): [ ] Sepsis due to: (Pna, UTI, gangrenous gall bladder, etc.) Due to: [ ] Device (please specify) [ ] Implant [ ] Graft [ ] Infusion [ ] Severe sepsis with acute organ dysfunction of: (Examples: respiratory failure, encephalopathy, acute kidney failure, other) [ ] Septic Shock [ ] Localized infection without sepsis [ ] Other diagnosis [ ] Unable to determine In addition, please specify: Present on Admission (POA): [ ] Yes [ ] No [ ] Unable to determine For continuity of documentation, please document condition throughout progress notes and discharge summary. Thank You. CLINICAL INDICATORS - SIGNS / SYMPTOMS / LABS WBC 13.5 (06/06) / 15.4 (06/07) BANDS 62 PULSE 116 (06/06) BP 86/37 / 93/48 RISKS: MALIGNANT TRANSVERSE COLON OBSTRUCTION WITH PERFORATION OPEN ABDOMEN (OP NOTE 06/05) ADVANCED AGE MULTIPLE COMORBIDITIES TREATMENT: CRITICAL CARE MONITORING IV FLUIDS (06/05-06/07) IV ZOSYN (06/05-PRESENT) COLON RESECTION (06/05) SERIAL LABS HIGH DOSE PRESSORS (OP NOTE 06/05) VENTILATOR SUPPORT (This form is maintained as a part of the permanent medical record) 2014 [employer]. All Rights Reserved RICHARD [email or web address] Office: [phone] [facility]
[2018-06-08] MEDS: Amiodarone 450 MG in Dextrose 5% in Water 250 ML IVPB SCH (13:44)
--- NOTE | 2018-06-08 15:12 | PRG ---
DATE OF SERVICE: 06/08/2018 SUBJECTIVE: Ms. Barnes is doing well today. She underwent abdominal washout, ABThera removal, colostomy formation, and definitive closure of abdominal wound yesterday. She is extubated this morning by Dr. Tsai. She is on CPAP currently. OBJECTIVE: VITAL SIGNS: Temperature 100.2 degrees, blood pressure 145/54, and respiratory rate 14. LUNGS: Clear to auscultation. CARDIAC: Regular rate and rhythm without murmur or gallop. ABDOMEN: Soft. Positive bowel sounds, although diminished. NG tube 150 over 24 hours. Urine output is good at 1147. LABORATORY DATA: This morning, her white count is 14 and hemoglobin 11.3. Sodium 142, potassium 3.9, BUN 123, and creatinine 1.55, improved from yesterday. Magnesium is low, and I have given her a bolus of magnesium. ASSESSMENT AND PLAN: Doing well status post left colon resection for obstructing colon cancer, ABThera placement, and subsequent ABThera removal and abdominal wall closure with colostomy. Continue supportive care. Continue NG tube, n.p.o. Await pathology. Job ID: [id number]
--- NOTE | 2018-06-08 15:40 | PRG ---
DATE OF SERVICE: 06/08/2018 SUBJECTIVE: Eliana Barnes is hemodynamically stable. OBJECTIVE: VITAL SIGNS: Blood pressure is 145/54, heart rate is 89, respiratory rate is 20, oximetry is 97. LUNGS: Clear. HEART: Regular rhythm. S1 and S2 normal. ABDOMEN: Soft and nontender. NEUROLOGIC: She makes eye contact. Follows commands. She moves all of her extremities. LABORATORY DATA: White count 14.2, hemoglobin 11.3, platelets 171. Sodium 142, potassium 3.9, chloride 116, bicarb 17, BUN 23, creatinine 1.55, 1.65 yesterday. PH 7.41, pCO2 is 28, pO2 is 136. IMPRESSION: Postop mechanical ventilation after resection of an obstructing colon cancer. PLAN: She will be followed by Dr. Tsai, was felt to be a candidate for extubation today. We will continue to follow since she has been seen by Dr. Tsai in the past. Job ID: [id number]
[2018-06-08] MEDS ORDERED: Acetaminophen 1,000 MG in Premix Bag 1 BAG IVPB PRN (16:13)
[2018-06-08] MEDS: Enoxaparin Sodium 30 MG/0.3 ML SYRINGE SC SCH (21:20)
[2018-06-09] MEDS: Piperacillin/Tazobactam 3.375 GM in Sodium Chloride 0.9% 100 ML IVPB SCH ×4 (00:15→17:39)
[2018-06-09] MEDS: Amiodarone 450 MG in Dextrose 5% in Water 250 ML IVPB SCH ×2 (05:05→20:34)
[2018-06-09] MEDS: Potassium Chloride 20 MEQ in Lactated Ringer's 1,000 ML IV SCH ×3 (05:06→18:20)
[2018-06-09 05:53] LABS: Hemoglobin 8.9 g/dL (12.0-16.0); Mean Corpuscular HGB CONC 32.9 g/dL (32.0-36.0); Mean Corpuscular Hemoglobin 30.9 pg (27.0-31.0); Mean Corpuscular Volume 93.9 fL (78.0-98.0); Mean Platelet Volume 7.9 fL (7.4-10.4); Platelet Count 187 thou/uL (130-400); RBC Distribution Width 13.7 % (11.5-14.5); Red Blood Cell (RBC) Count 2.89 mill/uL (4.20-5.40); White Blood Cell (WBC) Count 17.7 thou/uL (4.8-10.8)
[2018-06-09 05:57] LABS: Band 19 % (5-11); Eosinophils 1 % (0-10); Lymphocytes 2 % (21-51); MDiff Complete? YES; Monocytes 1 % (0-10); Neutrophil 77 % (42-75); Nucleated RBC 1 % (0)
[2018-06-09 06:06] LABS: Anion Gap 13 mmol/L (10-20); BUN (Urea Nitrogen) 24 mg/dL (9.8-20.1); Calc. Creatinine Clearance 24 mL/min (70-130); Calcium 6.7 mg/dL (7.8-10.44); Carbon Dioxide 18 mmol/L (23-31); Chloride 115 mmol/L (98-107); Estimated GFR-MDRD 30; Glucose 97 mg/dL (83-110); Magnesium 1.8 mg/dL (1.6-2.6); Potassium 4.7 mmol/L (3.5-5.1); Sodium 141 mmol/L (136-145)
[2018-06-09 07:18] LABS: Actual Bicarbonate (HCO3a) 16.5 mEq/L (22-28); Base Excess (BEa) -8.9 mEq/L (-2.0 to +3.0); CO2 Tension 34.2 mmHg (35.0-45.0); Calcium, Ionized 1.01 mmol/L (1.12-1.30); Carboxyhemoglobin (COHb) 0.8 gm% (0.0-3.0); Hemoglobin (Hb) 12.4 g/dL (12.0-16.0); O2 Tension (PaO2) 117.8 mmHg (> 60.0); Potassium - ABG Lab 4.54 mmol/L (3.70-5.30)
[2018-06-09 07:19] LABS: Puncture Site LB
[2018-06-09] MEDS: Morphine 2 MG/ML SYRINGE SLOW IVP PRN (08:21)
[2018-06-09] MEDS: Pantoprazole 40 MG VIAL IVP SCH (08:22)
--- NOTE | 2018-06-09 08:45 | PRG ---
DATE OF SERVICE: 06/09/2018 SUBJECTIVE: Ms. Barnes was extubated yesterday. She required BiPAP intermittently through the day yesterday. This morning, I was able to take the BiPAP off, and she communicated to me without much problem. OBJECTIVE: VITAL SIGNS: Her temperature is 97.9, pulse 74, blood pressure 187/44. A 24-hour intake 3624, output 1195. HEENT: Dry oral mucous membranes in the mouth. NECK: No JVD. LUNGS: Clear anteriorly. CARDIAC: S1, S2. Regular. ABDOMEN: Soft. EXTREMITIES: No edema. LABORATORY DATA: White blood cell count 17.7, hematocrit 27.2, and platelet count 187. PH of 7.30, pCO2 of 34, pO2 of 117, on BiPAP 10/5. Sodium 141, potassium 4.7, chloride 115, CO2 of 18, BUN 24, creatinine 1.6, glucose 97. ASSESSMENT: 1. Status post acute respiratory failure requiring mechanical ventilation. 2. Status post laparotomy. 3. Underlying chronic obstructive pulmonary disease. PLAN: 1. Up in the chair as tolerated. 2. Start feeding when okay with Dr. Law. 3. Discontinue daily ABGs. Job ID: [id number]
--- NOTE | 2018-06-09 08:55 | PQF ---
CLINICAL DOCUMENTATION IMPROVEMENT CLARIFICATION FORM: ICD-10 Updated PLEASE DO AN ADDENDUM TO THE PROGRESS NOTE WITH ANY DOCUMENTATION UPDATES OR ADDITIONS AND CARRY THROUGH TO DC SUMMARY. THANK YOU. DATE: 06/09/18 ATTN: DR. RANDHAWA Please exercise your independent, professional judgment in responding to the clarification form. Clinical indicators are provided on the bottom of this form for your review Please check appropriate box(es): [ ] Sepsis due to: (Pna, UTI, gangrenous gall bladder, etc.) Due to: [ ] Device (please specify) [ ] Implant [ ] Graft [ ] Infusion [ ] Severe sepsis with acute organ dysfunction of: (Examples: respiratory failure, encephalopathy, acute kidney failure, other) [ ] Septic Shock [ ] Localized infection without sepsis [ ] Other diagnosis [ ] Unable to determine In addition, please specify: Present on Admission (POA): [ ] Yes [ ] No [ ] Unable to determine For continuity of documentation, please document condition throughout progress notes and discharge summary. Thank You. CLINICAL INDICATORS - SIGNS / SYMPTOMS / LABS WBC 13.5 (06/06) / 15.4 (06/07) BANDS 62 PULSE 116 (06/06) BP 86/37 / 93/48 RISKS: MALIGNANT TRANSVERSE COLON OBSTRUCTION WITH PERFORATION OPEN ABDOMEN (OP NOTE 06/05) ADVANCED AGE MULTIPLE COMORBIDITIES TREATMENT: CRITICAL CARE MONITORING IV FLUIDS (06/05-06/07) IV ZOSYN (06/05-PRESENT) COLON RESECTION (06/05) SERIAL LABS HIGH DOSE PRESSORS (OP NOTE 06/05) VENTILATOR SUPPORT (This form is maintained as a part of the permanent medical record) 2014 [employer]. All Rights Reserved RICHARD [email or web address] Office: [phone] [facility]
--- NOTE | 2018-06-09 08:58 | RAD ---
CHEST 1 VIEW: Date: 06/09/18 HISTORY: Intubated. Dyspnea. Follow-up. COMPARISON: 06/08/18. FINDINGS: Cardiac silhouette is magnified and upper limits of normal in size. Pulmonary vasculature remains upp er limits of normal. Mediastinum is midline with left subclavian central venous catheter. Nasogastric tube remains in place. Endotracheal catheter no longer visible. No evidence of pneumothorax. IMPRESSION: 1. Interval extubation. 2. Borderline pulmonary vascular congestion and other findings are otherwise stable. POS: [facility]
[2018-06-09 09:20] LABS: Actual Bicarbonate (HCO3a) 16.6 mEq/L (22-28); Analyzer IN Cardio OR; Base Excess (BEa) -10.1 mEq/L (-2.0 to +3.0); CO2 Tension 39.7 mmHg (35.0-45.0); Calcium, Ionized 0.81 mmol/L (1.12-1.30); Carboxyhemoglobin (COHb) 0.3 gm% (0.0-3.0); Hemoglobin (Hb) 9.5 g/dL (12.0-16.0); Potassium - ABG Lab 3.98 mmol/L (3.70-5.30)
[2018-06-09 09:39] LABS: O2 Tension (PaO2) 603.3 mmHg (> 60.0); pH, Arterial 7.24 (7.35-7.45)
[2018-06-09] MEDS ORDERED: Furosemide 40 MG/4 ML VIAL SLOW IVP SCH (16:30)
[2018-06-09] MEDS ORDERED: Morphine 4 MG/ML VIAL SLOW IVP PRN (16:39)
--- NOTE | 2018-06-09 16:44 | PRG ---
DATE OF SERVICE: 06/09/2018 SUBJECTIVE: Ms. Barnes is breathing much easier today. She is in ICU. She no longer requires BiPAP. OBJECTIVE: VITAL SIGNS: Heart rate 78, blood pressure 158/86, and saturations 98%. Gastric drainage 50 per the last 24 hours. Ostomy output 150. Colostomy healthy. LUNGS: Clear to auscultation. CARDIAC: Regular rate and rhythm without murmur or gallop. ABDOMEN: Soft. Occasional bowel sounds. Colostomy healthy. LABORATORY DATA: White count 17, hemoglobin 8.9. Basic metabolic profile unremarkable except for BUN 24, creatinine 1.61, essentially same yesterday. GFR 30. ASSESSMENT AND PLAN: Recovering from laparotomy and resection of obstructing distal transverse colon cancer. 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 Four lymph nodes were negative for metastasis. Metastatic nodule in the omentum resected, 1 cm, small-bowel resection. No pathology. 4.5 x 2.3 cm tumor, small-vessel lymphovascular invasion, perineural invasion present. T4 N1c M1 (omentum). Colon is normal. Postoperative colon resection with open abdomen and subsequent re-exploration and closure. Overall, she is doing well. She was extubated yesterday, required BiPAP and now this is no longer necessary. I would recommend that she be up in a chair and then should be considered that she should move to the floor probably tomorrow. Job ID: [id number]
[2018-06-09] MEDS: Enoxaparin Sodium 30 MG/0.3 ML SYRINGE SC SCH (20:28)
[2018-06-10] MEDS: Piperacillin/Tazobactam 3.375 GM in Sodium Chloride 0.9% 100 ML IVPB SCH ×3 (01:07→12:13)
[2018-06-10] MEDS: Potassium Chloride 20 MEQ in Lactated Ringer's 1,000 ML IV SCH (05:33)
[2018-06-10 06:25] LABS: Band 13 % (5-11); Eosinophils 4 % (0-10); Hemoglobin 9.2 g/dL (12.0-16.0); Lymphocytes 5 % (21-51); MDiff Complete? YES; Mean Corpuscular HGB CONC 32.1 g/dL (32.0-36.0); Mean Corpuscular Hemoglobin 30.1 pg (27.0-31.0); Mean Corpuscular Volume 93.6 fL (78.0-98.0); Mean Platelet Volume 7.8 fL (7.4-10.4); Monocytes 7 % (0-10); Neutrophil 71 % (42-75); Platelet Count 245 thou/uL (130-400); RBC Distribution Width 13.9 % (11.5-14.5); Red Blood Cell (RBC) Count 3.06 mill/uL (4.20-5.40); White Blood Cell (WBC) Count 16.7 thou/uL (4.8-10.8)
[2018-06-10 06:28] LABS: Anion Gap 14 mmol/L (10-20); BUN (Urea Nitrogen) 23 mg/dL (9.8-20.1); Calc. Creatinine Clearance 24 mL/min (70-130); Calcium 7.4 mg/dL (7.8-10.44); Carbon Dioxide 19 mmol/L (23-31); Chloride 113 mmol/L (98-107); Estimated GFR-MDRD 29; Glucose 78 mg/dL (83-110); Potassium 4.4 mmol/L (3.5-5.1); Sodium 142 mmol/L (136-145)
[2018-06-10] MEDS: Pantoprazole 40 MG VIAL IVP SCH (08:30)
--- NOTE | 2018-06-10 08:41 | PRG ---
DATE OF SERVICE: 06/10/2018 SUBJECTIVE: She is much more talkative, awake, and alert. OBJECTIVE: VITAL SIGNS: Temperature 97.7, pulse 83, blood pressure 110/62, O2 saturation 95%. She is currently on amiodarone drip. Intake for the last 24 hours was 2861, output 3305. HEENT: Unremarkable. NECK: No JVD. CHEST: Clear anteriorly. CARDIAC: S1, S2. Regular. ABDOMEN: Soft. EXTREMITIES: No edema. LABORATORY DATA: Sodium 142, potassium 4.4, chloride 113, CO2 of 19, BUN 23, creatinine 1.6, and glucose 78. White blood cell count 16.7, hematocrit 28.7, and platelet count 245. ASSESSMENT: 1. Status post laparotomy. 2. Status post colostomy. 3. Chronic obstructive pulmonary disease, which is stable. 4. Status post acute respiratory failure. PLAN: Up in a chair as tolerated. Increase activity. Can probably go to telemetry or IMCU when okayed by Dr. Law. Job ID: [id number]
[2018-06-10] MEDS: Amiodarone 450 MG in Dextrose 5% in Water 250 ML IVPB SCH (12:00)
[2018-06-10] MEDS ORDERED: traMADol HCl 50 MG TAB PO PRN (14:24)
[2018-06-10] MEDS ORDERED: Acetaminophen 500 MG TAB PO PRN (14:24)
[2018-06-10] MEDS ORDERED: Ibuprofen 100 MG/5 ML UDCUP PO PRN (14:24)
[2018-06-10] MEDS ORDERED: clonazePAM 0.5 MG TAB PO PRN (14:25)
[2018-06-10] MEDS ORDERED: Albuterol Sulfate 2.5 mg/3 ml Neb NEB PRN (14:25)
--- NOTE | 2018-06-10 15:04 | PRG ---
DATE OF SERVICE: 06/10/2018 SUBJECTIVE: Ms. Barnes she is doing well. OBJECTIVE: VITAL SIGNS: Blood pressure 140/62, heart rate 78. LUNGS: Clear to auscultation. CARDIAC: Regular rate and rhythm without murmur or gallop. ABDOMEN: Soft, nontender. Good bowel sounds. Colostomy functioning with output. EXTREMITIES: Unremarkable. LABORATORY DATA: White count 16, hemoglobin 9. Sodium 142, creatinine 1.67, GFR 29. ASSESSMENT AND PLAN: Doing well after obstructing colon cancer T4. She will need Oncology visit postoperatively. I will arrange that IN my office when I see her postoperatively. She will need to go to rehab. She should return to see me in the office in 2 to 3 weeks. Currently, she is on a clear liquid diet, we will advance her to soft diet. She can move to the [facility]. Job ID: [id number]
[2018-06-10] MEDS ORDERED: Zolpidem Tartrate 5 MG TAB PO PRN (15:42)
[2018-06-10] MEDS: Enoxaparin Sodium 30 MG/0.3 ML SYRINGE SC SCH (20:36)
[2018-06-10] MEDS: Atorvastatin Calcium 40 MG TAB PO SCH (20:37)
[2018-06-11] MEDS: Amiodarone 450 MG in Dextrose 5% in Water 250 ML IVPB SCH (03:02)
[2018-06-11 06:05] LABS: Band 3 % (5-11); Hemoglobin 8.2 g/dL (12.0-16.0); Hypochromia SLIGHT = 6-15 cells (100X) (0-5/hpf); Lymphocytes 6 % (21-51); MDiff Complete? YES; Mean Corpuscular HGB CONC 32.8 g/dL (32.0-36.0); Mean Corpuscular Hemoglobin 31.2 pg (27.0-31.0); Mean Platelet Volume 7.4 fL (7.4-10.4); Monocytes 4 % (0-10); Neutrophil 87 % (42-75); Platelet Count 265 thou/uL (130-400); Platelet Morphology Comment Appears Adequate; RBC Distribution Width 13.8 % (11.5-14.5); Red Blood Cell (RBC) Count 2.62 mill/uL (4.20-5.40); White Blood Cell (WBC) Count 12.3 thou/uL (4.8-10.8)
[2018-06-11] MEDS: Levothyroxine Sodium 75 MCG TAB PO SCH (06:11)
--- NOTE | 2018-06-11 09:16 | PRG ---
DATE OF SERVICE: 06/11/2018 SUBJECTIVE: She is awake, alert, starting to eat this morning. OBJECTIVE: VITAL SIGNS: On exam, temperature 98.8, pulse 71, respirations 18, O2 saturations 99% on 3 L, blood pressure 166/72. HEENT: Unremarkable. NECK: No JVD. LUNGS: Fairly clear anteriorly. CARDIAC: S1, S2 regular. ABDOMEN: Soft. Surgical wounds noted. EXTREMITIES: No edema. LABORATORY DATA: White blood cell count 12, hematocrit 24.9, and platelet count 265. ASSESSMENT: 1. Status post laparotomy. 2. Status post acute respiratory failure. 3. Obstructing colon cancer, now with colostomy. PLAN: Increase activity as tolerated. Antibiotics have been stopped. Job ID: [id number]
[2018-06-11] MEDS: Citalopram 20 MG TAB PO SCH (10:07)
[2018-06-11] MEDS: Furosemide 40 MG TAB PO SCH (10:08)
[2018-06-11] MEDS: Clopidogrel Bisulfate 75 MG TAB PO SCH (10:08)
[2018-06-11] MEDS: traMADol HCl 50 MG TAB PO PRN (10:08)
[2018-06-11] MEDS: Spironolactone 25 MG TAB PO SCH (10:08)
[2018-06-11] MEDS: Potassium Chloride 20 MEQ TAB PO SCH (10:09)
[2018-06-11] MEDS: Amlodipine 5 MG TAB PO SCH (10:09)
[2018-06-11] MEDS: Polyethylene Glycol 3350 17 GM Packet PO SCH (10:09)
[2018-06-11] MEDS: Famotidine 20 MG TAB PO SCH (10:09)
[2018-06-11] MEDS: Estradiol 1 MG TAB PO SCH (10:10)
--- NOTE | 2018-06-11 12:14 | PRG ---
DATE OF SERVICE: 06/11/2018 SUBJECTIVE: Eliana Barnes is doing well today, she has been moved to [facility]. She is on amiodarone drip. She is tolerating a regular diet. OBJECTIVE: VITAL SIGNS: Temperature 97.7 degrees, heart rate 71, blood pressure 186/48. LUNGS: Clear to auscultation. CARDIAC: Regular rate and rhythm without murmur or gallop. ABDOMEN: Soft. Positive bowel sounds. Colostomy healthy. EXTREMITIES: Unremarkable. LABORATORY DATA: White count 12, hemoglobin 8.2. Basic metabolic profile is improved, BUN stable at 23, creatinine is 1.67. ASSESSMENT AND PLAN: 1. Chronic kidney disease. Renal function is probably at its baseline level. 2. Magnesium is corrected. 3. GI function is resumed. 4. Atrial fibrillation. This hospitalization probably related to stress from her bowel obstruction. We will discontinue her amiodarone drip. I have discussed with Dr. Reyes. 5. Dr. Stevens is covering till 06/17. Job ID: [id number]
[2018-06-11] MEDS: Atorvastatin Calcium 40 MG TAB PO SCH (20:26)
[2018-06-11] MEDS: Enoxaparin Sodium 30 MG/0.3 ML SYRINGE SC SCH (20:26)
[2018-06-12] MEDS: Levothyroxine Sodium 75 MCG TAB PO SCH (05:27)
[2018-06-12 05:57] LABS: Band 10 % (5-11); Hemoglobin 8.9 g/dL (12.0-16.0); Lymphocytes 10 % (21-51); MDiff Complete? YES; Mean Corpuscular HGB CONC 31.9 g/dL (32.0-36.0); Mean Corpuscular Hemoglobin 30.2 pg (27.0-31.0); Mean Corpuscular Volume 94.6 fL (78.0-98.0); Mean Platelet Volume 7.3 fL (7.4-10.4); Metamyelocyte 1 % (0-0); Monocytes 5 % (0-10); Neutrophil 74 % (42-75); Nucleated RBC 1 % (0); Platelet Count 376 thou/uL (130-400); Platelet Morphology Comment Appears Adequate; RBC Distribution Width 13.6 % (11.5-14.5); Red Blood Cell (RBC) Count 2.94 mill/uL (4.20-5.40); White Blood Cell (WBC) Count 11.9 thou/uL (4.8-10.8)
[2018-06-12] MEDS: Citalopram 20 MG TAB PO SCH (10:03)
[2018-06-12] MEDS: Amlodipine 5 MG TAB PO SCH (10:03)
[2018-06-12] MEDS: Famotidine 20 MG TAB PO SCH (10:04)
[2018-06-12] MEDS: Estradiol 1 MG TAB PO SCH (10:04)
[2018-06-12] MEDS: Clopidogrel Bisulfate 75 MG TAB PO SCH (10:04)
[2018-06-12] MEDS: Potassium Chloride 20 MEQ TAB PO SCH (10:05)
[2018-06-12] MEDS: Spironolactone 25 MG TAB PO SCH (10:05)
[2018-06-12] MEDS: Furosemide 40 MG TAB PO SCH (10:05)
[2018-06-12] MEDS: Polyethylene Glycol 3350 17 GM Packet PO SCH (10:05)
--- NOTE | 2018-06-12 12:34 | PRG ---
DATE OF SERVICE: 06/12/2018 SUBJECTIVE: Ms. Barnes is slowly improving. She had no acute complaints today. OBJECTIVE: VITAL SIGNS: Temperature is 98.8, pulse 74, respirations 18, O2 saturation 95% on 2 L, and blood pressure 170/74. HEENT: Unremarkable. NECK: No adenopathy, JVD, or bruits. LUNGS: Clear anteriorly. CARDIAC: S1 and S2. Regular. ABDOMEN: Soft. Colostomy noted. EXTREMITIES: No edema. LABORATORY DATA: White blood cell count 11.9, hematocrit 27.8, and platelet count 376. ASSESSMENT: 1. Status post laparotomy. 2. Status post acute respiratory failure requiring mechanical ventilation. 3. Obstructing colon cancer. PLAN: In my opinion, she is stable enough for transfer to the medical or surgical floor. Job ID: [id number]
--- NOTE | 2018-06-12 12:48 | PRG ---
CANCELED DICTATION. Job ID: [id number] [facility]ITAL[facility]
[2018-06-12] MEDS: traMADol HCl 50 MG TAB PO PRN (15:40)
--- NOTE | 2018-06-12 16:33 | PDOC.GSPN ---
Surgery Progress Note: Subj - Subjective Narrative: Patient feels pretty good today. She is not having much pain and has been up to the chair. She has ambulated short distances in the room with physical therapy. Her colostomy is putting out stool and gas and she is tolerating her diet without nausea or distention. She is still on some oxygen but does not feel short of breath. Her VAC dressing is in place and her colostomy looks healthy. Assessment/plan: Doing well status post bowel and colon resection. She is being transferred to the surgical josé She would benefit from inpatient therapy prior to discharge home as she lives with her elderly whohas heart issues and cannot help her much. Physical therapy occupational therapy and rehabilitation medicine consult. Surgery Progress Note: Obj - Vital signs Vital signs: Vital Signs - Most Recent Temp Pulse Resp BP Pulse Ox 97.8 F 69 20 178/77 H 96 06/12/18 15:50 06/12/18 15:50 06/12/18 15:50 06/12/18 15:50 06/12/18 16:06 Surgery Progress Note: Results - Labs Result Diagrams: 06/12/18 05:30 06/10/18 05:04 Lab results: Laboratory Results - last 24 hr 06/12/18 05:30 WBC 11.9 H RBC 2.94 L Hgb 8.9 L Hct 27.8 L MCV 94.6 MCH 30.2 MCHC 31.9 L RDW 13.6 Plt Count 376 MPV 7.3 L Neutrophils % (Manual) 74 Band Neuts % (Manual) 10 Lymphocytes % (Manual) 10 L Monocytes % (Manual) 5 Metamyelocytes % (Man) 1 H Nucleated RBCs # (Man) 1 H Plt Morphology Comment Appears Adequate
[2018-06-12] MEDS: Atorvastatin Calcium 40 MG TAB PO SCH (21:10)
[2018-06-12] MEDS: Enoxaparin Sodium 30 MG/0.3 ML SYRINGE SC SCH (21:10)
[2018-06-12] MEDS: Ondansetron PF 4 MG/2 ML Vial IVP PRN (23:09)
[2018-06-12] MEDS: hydrALAZINE 20 MG/ML VIAL SLOW IVP PRN (23:14)
[2018-06-13] MEDS: traMADol HCl 50 MG TAB PO PRN (00:20)
[2018-06-13] MEDS: Ondansetron PF 4 MG/2 ML Vial IVP PRN (05:23)
[2018-06-13] MEDS: hydrALAZINE 20 MG/ML VIAL SLOW IVP PRN ×2 (05:27→15:38)
[2018-06-13] MEDS: Levothyroxine Sodium 75 MCG TAB PO SCH (05:34)
[2018-06-13 07:59] LABS: #Eosinphils 0.1 thou/uL (0.0-0.7); #Lymphocytes 0.6 thou/uL (1.20-3.40); #Monocytes 0.5 thou/uL (0.11-0.59); #Neutrophils 14.6 thou/uL (1.40-6.50); %Eosinophils 0.4 % (0.0-10.0); %Lymphocytes 3.9 % (21.0-51.0); %Neutrophils 92.7 % (42.0-75.0); Hemoglobin 9.3 g/dL (12.0-16.0); Mean Corpuscular HGB CONC 32.1 g/dL (32.0-36.0); Mean Corpuscular Hemoglobin 30.3 pg (27.0-31.0); Mean Corpuscular Volume 94.6 fL (78.0-98.0); Mean Platelet Volume 7.1 fL (7.4-10.4); Platelet Count 507 thou/uL (130-400); RBC Distribution Width 13.4 % (11.5-14.5); Red Blood Cell (RBC) Count 3.06 mill/uL (4.20-5.40); White Blood Cell (WBC) Count 15.7 thou/uL (4.8-10.8)
[2018-06-13 08:26] LABS: Anion Gap 17 mmol/L (10-20); BUN (Urea Nitrogen) 20 mg/dL (9.8-20.1); Calc. Creatinine Clearance 25 mL/min (70-130); Calcium 8.5 mg/dL (7.8-10.44); Carbon Dioxide 26 mmol/L (23-31); Chloride 101 mmol/L (98-107); Estimated GFR-MDRD 31; Glucose 106 mg/dL (83-110); Sodium 140 mmol/L (136-145)
[2018-06-13] MEDS: Famotidine/PF 20 mg/2ml Vial SLOW IVP SCH ×2 (09:10→21:02)
[2018-06-13] MEDS: Scopolamine 1.5 mg/72 hour Patch TOP SCH (09:10)
--- NOTE | 2018-06-13 11:52 | PRG ---
DATE OF SERVICE: 06/13/2018 SUBJECTIVE: Ms. Barnes is having trouble with nausea and vomiting. Her breathing is okay. OBJECTIVE: VITAL SIGNS: Temperature 97.9, pulse 76, respirations 20, O2 saturation 97% on 1 L, and blood pressure 134/68. HEENT: Unremarkable. NECK: No JVD. LUNGS: Clear. CARDIAC: S1, S2. Regular. ABDOMEN: Soft with quite bowel sounds. EXTREMITIES: No edema. LABORATORY DATA: White blood cell count 15.7, hematocrit 28.9, and platelet count 507. Sodium 140, potassium 4, BUN 20, creatinine 1.5, glucose 106. ASSESSMENT: 1. Nausea and vomiting after recent laparotomy for colon cancer. 2. Status post respiratory failure, requiring mechanical ventilation. 3. Chronic obstructive pulmonary disease. PLAN: Pulmonary status is stable. General surgery will address the bowel issues. We will follow with you. Job ID: [id number]
[2018-06-13] MEDS: Amlodipine 5 MG TAB PO SCH (13:05)
[2018-06-13] MEDS: Furosemide 40 MG TAB PO SCH (13:06)
[2018-06-13] MEDS: Estradiol 1 MG TAB PO SCH (15:34)
[2018-06-13] MEDS: Spironolactone 25 MG TAB PO SCH (15:34)
[2018-06-13] MEDS: Clopidogrel Bisulfate 75 MG TAB PO SCH (15:34)
[2018-06-13] MEDS: Citalopram 20 MG TAB PO SCH (15:35)
[2018-06-13] MEDS: Potassium Chloride 20 MEQ TAB PO SCH (15:35)
[2018-06-13] MEDS: Polyethylene Glycol 3350 17 GM Packet PO SCH (15:35)
[2018-06-13] MEDS: Sodium Chloride 0.9% 1,000 ML IV SCH (18:44)
[2018-06-13] MEDS: Enoxaparin Sodium 30 MG/0.3 ML SYRINGE SC SCH (21:02)
[2018-06-13] MEDS: Atorvastatin Calcium 40 MG TAB PO SCH (21:03)
--- NOTE | 2018-06-13 22:12 | PDOC.GSPN ---
Surgery Progress Note: Subj - Subjective Narrative: Patient began throwing up last night. She was made nothing by mouth continued to have nausea and intermittent emesis so an NG tube was placed. Since then she is feeling much better and not having any more nausea. Even though she has been vomiting her colostomy has been putting out liquid stool. She denies any abdominal pain. Her blood pressure has been high. Urine output yesterday was good but today she is only had about 200 out over the past shift. She is likely little dehydrated because of the emesis so I have put her back on IV fluids. Her BUN and creatinine today were a little bit better that she will need some IV fluids and she is no longer taking liquids by mouth. I think her blood pressure may be elevated because of the stress of the nausea, but if this persists I will ask the hospitalist to see her. I will follow her NG output, and if it stays high we'll do some imaging of the abdomen. This is likely an ileus but she is at risk for obstruction. Surgery Progress Note: Obj - Vital signs Vital signs: Vital Signs - Most Recent Temp Pulse Resp BP Pulse Ox 98.7 F 80 20 178/62 H 95 06/13/18 14:59 06/13/18 16:12 06/13/18 16:12 06/13/18 15:38 06/13/18 19:14 Surgery Progress Note: Results - Labs Result Diagrams: 06/13/18 07:34 06/13/18 07:34
[2018-06-14] MEDS: Sodium Chloride 0.9% 1,000 ML IV SCH ×2 (03:57→14:30)
[2018-06-14] MEDS: Levothyroxine Sodium 75 MCG TAB PO SCH (06:12)
[2018-06-14] MEDS ORDERED: Amlodipine 5 MG TAB PO SCH (07:55)
[2018-06-14] MEDS: Citalopram 20 MG TAB PO SCH (08:23)
[2018-06-14] MEDS: Amlodipine 10 MG TAB PO SCH (08:23)
[2018-06-14] MEDS: Spironolactone 25 MG TAB PO SCH (08:23)
[2018-06-14] MEDS: Clopidogrel Bisulfate 75 MG TAB PO SCH (08:23)
[2018-06-14] MEDS: Potassium Chloride 20 MEQ TAB PO SCH (08:23)
[2018-06-14] MEDS: Famotidine/PF 20 mg/2ml Vial SLOW IVP SCH ×2 (08:23→20:42)
[2018-06-14] MEDS: Polyethylene Glycol 3350 17 GM Packet PO SCH (08:24)
[2018-06-14] MEDS ORDERED: Furosemide 20 MG/2 ML VIAL SLOW IVP SCH (09:00)
--- NOTE | 2018-06-14 09:58 | CON ---
DATE OF CONSULTATION: 06/14/2018 REASON FOR CONSULTATION: requesting for consultation Dr. Stevens, General Surgery for medical management of the patient's high blood pressure. HISTORY OF PRESENT ILLNESS: The patient is an 83-year-old female, who underwent surgery, this was laparotomy for colon cancer recently and it was a challenge to manage her blood pressure during this hospitalization. Her blood pressure was running high despite of using blood pressure lowering agents yesterday. She started having some nausea and vomiting. An NG-tube was placed and her blood pressure seems to be still a challenge for General Surgery and the Medical Team was asked to see the patient, that is how [facility] were involved. PAST MEDICAL HISTORY: 1. Hypothyroidism. 2. Chronic obstructive pulmonary disease. 3. Hypertension. 4. Peripheral artery disease, status post stenting in the lower extremities, status post left carotid endarterectomy. PAST SURGICAL HISTORY: 1. Left carotid endarterectomy. 2. Recent laparotomy for colon cancer. 3. Partial thyroidectomy. 4. ORIF of lumbar spine. 5. Hysterectomy. 6. Appendectomy. SOCIAL HISTORY: She does not have any history of alcohol intake, cigarette smoking, or use any illicit drugs. FAMILY HISTORY: Noncontributory. ALLERGIES: NONE. MEDICATIONS: 1. Tylenol 1000 mg q.6 hours p.r.n. 2. Albuterol 2.5 mg. 3. DuoNeb q.6 p.r.n. 4. Amlodipine 5 mg once a day. 5. Atorvastatin 40 mg at bedtime. 6. Citalopram 40 mg once a day. 7. Clonazepam 0.5 mg 3 times a day p.r.n. 8. Clopidogrel 75 mg once a day. 9. Enoxaparin 30 mg subcutaneously once a day. 10. Estradiol 1 mg orally daily. 11. Famotidine 20 mg slow IV push. 12. Furosemide 20 mg IV push once a day. 13. Hydralazine 10 mg every 6 hours p.r.n. as needed. 14. Levothyroxine 75 mcg every morning. 15. Magnesium sulfate 1 g p.r.n. 16. Metoprolol succinate 25 mg once a day. 17. Polyethylene glycol 17 g once a day. 18. Potassium chloride 20 mEq once a day. 19. Scopolamine 1.5 mg topical patch changed every 3 days. 20. IV fluids normal saline 100 mL/h. 21. Spironolactone 25 mg once a day. 22. Tramadol 50 mg q.6 hours p.r.n. as needed. 23. Zolpidem 10 mg at bedtime p.r.n. PHYSICAL EXAMINATION: VITAL SIGNS: Blood pressure is 158/51, pulse is 77, temperature is 97.7, maximal temperature is 98.7, respiratory rate is 20, and O2 saturation is 95% on 1 L by nasal cannula. HEENT: Head is atraumatic and normocephalic. Eyes are PERRLA. Sclerae are nonicteric. Conjunctivae are palish. Oral mucosa is somewhat dry. NECK: Supple. She has an NG-tube in the left nostril, suctioning dark brownish fluid. LUNGS: Breath sounds somewhat diminished at both bases. HEART: S1 and S2 normal. There is a systolic murmur mostly audible at the right sternal border. No S3. No S4. ABDOMEN: Status post laparotomy with colostomy in the left side and wound VAC in the middle part where the incision was. Bowel sounds are present. There is no tenderness on palpation. EXTREMITIES: No clubbing, cyanosis, or edema. NEUROLOGIC: She is alert and oriented x4. There is no any motor deficits. Cranial nerves are intact. LABORATORY DATA: None today. IMPRESSION: 1. Status post laparotomy with colostomy creation for colon cancer. 2. Uncontrolled hypertension. 3. Chronic obstructive pulmonary disease. 4. Status post respiratory failure requiring mechanical ventilation. 5. Hypothyroidism. 6. Chronic back pain. 7. Peripheral artery disease, status post peripheral stenting in the lower extremities. RECOMMENDATION: Recommendation is to stop her estrogen. Stop her spironolactone and Lasix for now, since she started having some nausea and vomiting, and she is suctioned through the NG tube. I am going to increase her amlodipine from 5 to 10 mg once a day. We are going to continue her metoprolol 25 mg once a day. We will use labetalol 10 mg IV push q.4 hours as needed along with hydralazine 10 mg IV push every 6 hours p.r.n. as needed for systolic blood pressure more than 160 and diastolic more than 100. We are going to continue her Plavix and I agree with IV fluids and if her urine output improves with IV rehydration, her Lasix and spironolactone could be placed back on her schedule. Thank you very much for the consultation. We are going to follow up with you. Job ID: [id number]
--- NOTE | 2018-06-14 10:50 | PRG ---
DATE OF SERVICE: 06/14/2018 SUBJECTIVE: The patient remains in the hospital. She now has an NG tube in place. She appears more comfortable than yesterday. OBJECTIVE: VITAL SIGNS: On exam, temperature 98.3, pulse 78, respirations 18, O2 saturation 94% on 1 L, and blood pressure 171/50. HEENT: Unremarkable. NECK: Without adenopathy, JVD, or bruits. LUNGS: Clear. CARDIAC: S1, S2. Regular. ABDOMEN: Somewhat distended, but bowel sounds hypoactive. EXTREMITIES: No edema. LABORATORY DATA: Labs were not done today. ASSESSMENT: 1. Stable chronic obstructive pulmonary disease. 2. Status post respiratory failure, requiring mechanical ventilation. 3. Ileus, status post laparotomy for colon cancer with subsequent colostomy. PLAN: Main issue now is supportive. We will if see bowel function returns. Job ID: [id number]
[2018-06-14] MEDS ORDERED: Morphine 4 MG/ML VIAL SLOW IVP PRN (12:28)
[2018-06-14] MEDS: hydrALAZINE 20 MG/ML VIAL SLOW IVP PRN (17:28)
[2018-06-14] MEDS: Atorvastatin Calcium 40 MG TAB PO SCH (20:42)
[2018-06-14] MEDS: Enoxaparin Sodium 30 MG/0.3 ML SYRINGE SC SCH (20:42)
--- NOTE | 2018-06-14 21:17 | PDOC.GSPN ---
Surgery Progress Note: Subj - Subjective Narrative: Patient feels better today. She denies any nausea or abdominal pain. She is still having some ileostomy output but her NG output was 750 yesterday and bilious in color. Her abdomen is soft and nondistended and her midline incision looks good. Her VAC was replaced and I'm going to leave her on NG decompression and bowel rest for today. I have asked the hospitalist service to see her since her hypertension did not resolve after NG tube placement. Otherwise I do not plan any changes in her current management. I expect that her recent nausea and vomiting was due to an ileus which should resolve with time. Surgery Progress Note: Obj - Vital signs Vital signs: Vital Signs - Most Recent Temp Pulse Resp BP Pulse Ox 98.9 F 73 16 159/53 H 95 06/14/18 20:03 06/14/18 20:03 06/14/18 20:03 06/14/18 20:03 06/14/18 20:03 Surgery Progress Note: Results - Labs Result Diagrams: 06/13/18 07:34 06/13/18 07:34
[2018-06-15] MEDS: Sodium Chloride 0.9% 1,000 ML IV SCH ×3 (02:03→15:52)
[2018-06-15] MEDS: Levothyroxine Sodium 75 MCG TAB PO SCH (06:13)
[2018-06-15] MEDS: hydrALAZINE 20 MG/ML VIAL SLOW IVP PRN ×3 (06:29→21:15)
[2018-06-15 06:48] LABS: Anion Gap 14 mmol/L (10-20); BUN (Urea Nitrogen) 14 mg/dL (9.8-20.1); Calc. Creatinine Clearance 32 mL/min (70-130); Calcium 7.7 mg/dL (7.8-10.44); Carbon Dioxide 26 mmol/L (23-31); Chloride 108 mmol/L (98-107); Estimated GFR-MDRD 42; Glucose 71 mg/dL (83-110); Potassium 3.4 mmol/L (3.5-5.1); Sodium 145 mmol/L (136-145)
[2018-06-15 06:52] LABS: #Eosinphils 0.1 thou/uL (0.0-0.7); #Lymphocytes 0.4 thou/uL (1.20-3.40); #Monocytes 0.7 thou/uL (0.11-0.59); #Neutrophils 15.1 thou/uL (1.40-6.50); %Eosinophils 0.5 % (0.0-10.0); %Lymphocytes 2.7 % (21.0-51.0); %Monocytes 4.3 % (0.0-10.0); %Neutrophils 92.5 % (42.0-75.0); Hemoglobin 8.6 g/dL (12.0-16.0); Mean Corpuscular HGB CONC 32.4 g/dL (32.0-36.0); Mean Corpuscular Hemoglobin 30.8 pg (27.0-31.0); Mean Corpuscular Volume 95.3 fL (78.0-98.0); Mean Platelet Volume 6.7 fL (7.4-10.4); Platelet Count 595 thou/uL (130-400); RBC Distribution Width 13.7 % (11.5-14.5); White Blood Cell (WBC) Count 16.4 thou/uL (4.8-10.8)
[2018-06-15] MEDS: Clopidogrel Bisulfate 75 MG TAB PO SCH (08:00)
[2018-06-15] MEDS: Famotidine/PF 20 mg/2ml Vial SLOW IVP SCH ×2 (08:00→20:53)
[2018-06-15] MEDS: Polyethylene Glycol 3350 17 GM Packet PO SCH (08:00)
[2018-06-15] MEDS: Potassium Chloride 20 MEQ TAB PO SCH (08:00)
[2018-06-15] MEDS: Spironolactone 25 MG TAB PO SCH (08:00)
[2018-06-15] MEDS: Amlodipine 10 MG TAB PO SCH (08:00)
[2018-06-15] MEDS: Citalopram 20 MG TAB PO SCH (08:00)
--- NOTE | 2018-06-15 09:03 | PRG ---
DATE OF SERVICE: 06/15/2018 SUBJECTIVE: The patient is doing reasonably well. She still has NG tube in. OBJECTIVE: VITAL SIGNS: Temperature is 98.4, pulse 72, and blood pressure 180/66. HEENT: Unremarkable. NECK: No JVD. CHEST: Clear. CARDIAC: S1 and S2, regular. ABDOMEN: Soft. EXTREMITIES: No edema. LABORATORY: White blood cell count 16.4, hematocrit 26.7, platelet count 595. Sodium 145, potassium 3.4, chloride 108, CO2 of 26, BUN 14, creatinine 1.2, and glucose 71. ASSESSMENT: 1. Stable chronic obstructive pulmonary disease. 2. Ileus. PLAN: Continue current supportive care. Job ID: [id number]
[2018-06-15] MEDS: Labetalol HCl 100 MG/20 ML VIAL SLOW IVP PRN ×2 (11:02→17:41)
[2018-06-15] MEDS ORDERED: ISOVUE-370 76%-LOCM 1 ML ONE (13:21)
--- NOTE | 2018-06-15 14:40 | PDOC.PN ---
- Subjective Encounter Start Date: 06/15/18 Encounter Start Time: 14:38 sSandro Barnes was seen today in follow-up of HTN. She does not have any complaints. She denies any headache or dizziness. She denies chest pain or difficulty breathing. - Objective MAR Reviewed: Yes Vital Signs & Weight: Vital Signs (12 hours) Temp Pulse Resp BP BP BP Pulse Ox 06/15/18 11:50 98.0 F 69 20 141/62 H 99 06/15/18 11:02 83 185/65 H 06/15/18 10:30 72 15 06/15/18 09:30 175/58 H 85 L 06/15/18 08:19 98.1 F 89 18 165/51 H 93 L 06/15/18 08:10 94 L 06/15/18 08:00 73 181/66 H 06/15/18 07:32 73 17 99 06/15/18 06:29 85 06/15/18 05:04 98.4 F 85 18 184/74 H 95 Weight Admit Weight 131 lb Weight 131 lb 1.6 oz Most Recent Monitor Data Heart Rate from ECG 86 NIBP 149/46 NIBP BP-Mean 80 Respiration from ECG 18 SpO2 96 I&O: 06/14/18 06/15/18 06/16/18 06:59 06:59 06:59 Intake Total 100 2720 Output Total 1125 1395 Balance -1025 1325 Result Diagrams: 06/15/18 06:25 06/15/18 06:25 Phys Exam - Physical Examination HEENT: PERRLA Respiratory: no rales, no rhonchi, wheezing present Cardiovascular: RRR, no significant murmur, no rub Gastrointestinal: soft, non-tender, positive bowel sounds Musculoskeletal: no edema Dx/Plan (1) Colon cancer Code(s): C18.9 - MALIGNANT NEOPLASM OF COLON, UNSPECIFIED Status: Acute (2) Hypertension Code(s): I10 - ESSENTIAL (PRIMARY) HYPERTENSION Status: Acute (3) Bowel obstruction Code(s): K56.609 - UNSP INTESTNL OBST, UNSP TO PARTIAL VERSUS COMPLETE OBST Status: Acute - Plan * HTN- blood pressure is a bit elevated- however trending down * Will continue the current regimen,and add Labetalol as needed * Bowel Obstruction- continue as per General Surgeon, She is NPO, with NG tube in place.
[2018-06-15] MEDS ORDERED: Sodium Chloride 0.9% 500 ML IV SCH (15:00)
--- NOTE | 2018-06-15 15:02 | PDOC.GSPN ---
Surgery Progress Note: Subj - Subjective Narrative: Patient isn't feeling too good today. She is not currently nauseated but her abdomen is more sore and her throat hurts. Vital signs are unchanged. White count is still a little high. Colostomy hasn't put out anything today and NG output is still bilious. Abdomen is soft but slightly distended and tender to palpation on the right. Colostomy is healthy but without output of gas or stool. VAC is in place. Assessment/plan: Patient with persistent bilious NG output and now without colostomy output and with new abdominal tenderness. She is at high risk for obstruction or abscess so I'm going to obtain a CT with IV contrast only. Her renal function has continued to slowly improve, but I will give her a small bolus before the CT. Surgery Progress Note: Obj - Vital signs Vital signs: Vital Signs - Most Recent Temp Pulse Resp BP Pulse Ox 98.0 F 72 16 141/62 H 99 06/15/18 11:50 06/15/18 14:47 06/15/18 14:47 06/15/18 11:50 06/15/18 11:50 Surgery Progress Note: Results - Labs Result Diagrams: 06/15/18 06:25 06/15/18 06:25 Lab results: Laboratory Results - last 24 hr 06/15/18 06/15/18 06:25 06:25 WBC 16.4 H RBC 2.80 L Hgb 8.6 L Hct 26.7 L MCV 95.3 MCH 30.8 MCHC 32.4 RDW 13.7 Plt Count 595 H MPV 6.7 L Neutrophils % 92.5 H Lymphocytes % 2.7 L Monocytes % 4.3 Eosinophils % 0.5 Basophils % 0.0 Neutrophils # 15.1 H Lymphocytes # 0.4 L Monocytes # 0.7 H Eosinophils # 0.1 Basophils # 0.0 Sodium 145 Potassium 3.4 L Chloride 108 H Carbon Dioxide 26 Anion Gap 14 BUN 14 Creatinine 1.23 H Estimated GFR (MDRD) 42 Glucose 71 L Calcium 7.7 L
--- NOTE | 2018-06-15 20:21 | CT ---
CT ABDOMEN WITH CONTRAST: INDICATIONS: Right abdominal pain with nausea and vomiting. COMPARISON: 06/04/2018 FINDINGS: Enteric contrast was not administered, per ordering physician's request, which precludes reliable ass essment of the bowel. There is an enteric catheter traversing to the left upper quadrant, and there is marked abnormal thickening of the gastric wall. The stomach is nondistended, which limits assessm ent. There is generalized increased density of the small bowel wall, indicative of hyperemia. Assoc iated ascites and mesenteric edema are present. Vicarious excretion of contrast media is seen within the gallbladder. There is a vague hypodensity involving the lateral segment of the left hepatic lob e, incompletely characterized. No overt hydronephrosis or adrenal mass. The pancreas is grossly unr emarkable. There is a left lower quadrant ostomy, which has been performed since prior exam and whic h demonstrates the appearance of a colostomy with colonic pull-through at the level of the distal tra nsverse colon. The left hemicolon has been intervally excised. Correlate with recent surgical histo ry. The distal bowel is incompletely evaluated due to the exclusion of the pelvis from this exam. D iffuse vascular disease is present. There is moderate bilateral pleural fluid with adjacent consolid ation, incompletely visualized. There is generalized body wall edema. IMPRESSION: 1. Evidence of interval left lower quadrant ostomy, likely involving the level of the distal transve rse colon, with evidence of interval hemicolectomy. The distal bowel of the lower abdomen/pelvis is incompletely imaged on the basis of this examination. 2. There is marked abnormal thickening of the gastric wall. This is new from recent comparison exam ination. Correlate for interval development of gastritis, which could be inflammatory, infectious, o r ischemic related to hypoperfusion, pending clinical scenario. There is also suggestion of diffuse hyperemia and thickening of the small bowel wall, which would include similar etiologies. Surroundin g ascites, as well as mesenteric edema, are present. 3. Indeterminate lesion of the lateral segment, left hepatic lobe. 4. Moderate bilateral pleural fluid with adjacent consolidation. POS: [facility]
[2018-06-15] MEDS: Atorvastatin Calcium 40 MG TAB PO SCH (20:43)
[2018-06-15] MEDS: Enoxaparin Sodium 30 MG/0.3 ML SYRINGE SC SCH (20:53)
[2018-06-16] MEDS: traMADol HCl 50 MG TAB PO PRN (00:27)
[2018-06-16] MEDS: Sodium Chloride 0.9% 1,000 ML IV SCH ×2 (00:33→13:04)
[2018-06-16] MEDS: hydrALAZINE 20 MG/ML VIAL SLOW IVP PRN (05:06)
[2018-06-16] MEDS: Levothyroxine Sodium 75 MCG TAB PO SCH (05:06)
[2018-06-16] MEDS: Labetalol HCl 100 MG/20 ML VIAL SLOW IVP PRN (07:50)
[2018-06-16] MEDS: Scopolamine 1.5 mg/72 hour Patch TOP SCH (08:19)
[2018-06-16] MEDS: Famotidine/PF 20 mg/2ml Vial SLOW IVP SCH ×2 (08:20→20:28)
[2018-06-16] MEDS: Amlodipine 10 MG TAB PO SCH (08:22)
[2018-06-16] MEDS: Spironolactone 25 MG TAB PO SCH (08:22)
[2018-06-16] MEDS: Potassium Chloride 20 MEQ TAB PO SCH (08:22)
[2018-06-16] MEDS: Clopidogrel Bisulfate 75 MG TAB PO SCH (08:22)
[2018-06-16] MEDS: Citalopram 20 MG TAB PO SCH (08:23)
[2018-06-16] MEDS: Polyethylene Glycol 3350 17 GM Packet PO SCH (08:23)
--- NOTE | 2018-06-16 09:09 | PRG ---
DATE OF SERVICE: 06/16/2018 SUBJECTIVE: I Found her somewhat confused this morning. She apparently got some tramadol last night. She was oriented to person, place, and did know my name. OBJECTIVE: VITAL SIGNS: Temperature 97.9, pulse 73, blood pressure 181/72, O2 saturation 99% on 1 L. HEENT: Unremarkable. NECK: No JVD. LUNGS: Coarse rhonchi bilaterally. CARDIAC: S1, S2. Regular. ABDOMEN: Distended. Hypoactive bowel sounds. EXTREMITIES: Trace edema. ASSESSMENT: 1. Severe chronic obstructive pulmonary disease. 2. Ileus. PLAN: 1. Continue supportive care with nebs. 2. Try and withhold narcotic medications as much as possible. Job ID: [id number]
[2018-06-16 10:44] LABS: Hemoglobin 8.9 g/dL (12.0-16.0); Mean Corpuscular HGB CONC 31.7 g/dL (32.0-36.0); Mean Corpuscular Hemoglobin 30.7 pg (27.0-31.0); Mean Corpuscular Volume 96.7 fL (78.0-98.0); Mean Platelet Volume 6.7 fL (7.4-10.4); Platelet Count 615 thou/uL (130-400); RBC Distribution Width 14.1 % (11.5-14.5); Red Blood Cell (RBC) Count 2.91 mill/uL (4.20-5.40); White Blood Cell (WBC) Count 26.3 thou/uL (4.8-10.8)
[2018-06-16 10:48] LABS: Anion Gap 20 mmol/L (10-20); BUN (Urea Nitrogen) 15 mg/dL (9.8-20.1); Calc. Creatinine Clearance 36 mL/min (70-130); Calcium 7.4 mg/dL (7.8-10.44); Carbon Dioxide 20 mmol/L (23-31); Chloride 111 mmol/L (98-107); Estimated GFR-MDRD 48; Glucose 88 mg/dL (83-110); Potassium 3.7 mmol/L (3.5-5.1); Sodium 147 mmol/L (136-145)
[2018-06-16 11:20] LABS: Band 14 % (5-11); MDiff Complete? YES; Monocytes 2 % (0-10); Neutrophil 84 % (42-75); Polychromasia SLIGHT = 2-3 cells (100X) (0-2/hpf)
--- NOTE | 2018-06-16 14:27 | PDOC.PN ---
- Subjective Encounter Start Date: 06/16/18 Encounter Start Time: 14:26 Ms. Barnes was seen today in follow-up of HTN management. She does not have any complaints. She appears a bit weak. She denies abdominal pain or shortness of breath. - Objective MAR Reviewed: Yes Vital Signs & Weight: Vital Signs (12 hours) Temp Pulse Pulse Pulse Resp BP BP 06/16/18 11:32 97.9 F 66 22 H 06/16/18 11:14 62 18 06/16/18 10:02 92 92 163/51 H 06/16/18 08:30 06/16/18 08:22 73 181/72 H 06/16/18 07:50 73 181/72 H 06/16/18 07:42 06/16/18 07:40 73 16 06/16/18 07:31 97.9 F 60 22 H 06/16/18 06:30 06/16/18 05:06 60 167/53 H 06/16/18 04:51 97.9 F 60 19 BP BP BP Pulse Ox Pulse Ox Pulse Ox 06/16/18 11:32 120/44 L 96 06/16/18 11:14 98 06/16/18 10:02 163/50 H 92 L 92 L 06/16/18 08:30 98 06/16/18 08:22 06/16/18 07:50 06/16/18 07:42 99 06/16/18 07:40 99 06/16/18 07:31 172/67 H 98 06/16/18 06:30 156/58 H 06/16/18 05:06 06/16/18 04:51 167/53 H 95 Weight Admit Weight 131 lb Weight 131 lb 1.6 oz Most Recent Monitor Data Heart Rate from ECG 86 NIBP 149/46 NIBP BP-Mean 80 Respiration from ECG 18 SpO2 96 I&O: 06/15/18 06/16/18 06/17/18 06:59 06:59 06:59 Intake Total 2720 3000 Output Total 1395 1585 Balance 1325 1415 Result Diagrams: 06/16/18 10:10 06/16/18 10:10 Phys Exam - Physical Examination HEENT: PERRLA Respiratory: no wheezing, no rales + rhonchi Cardiovascular: RRR, no significant murmur, no rub Gastrointestinal: soft, non-tender, no distention, positive bowel sounds Musculoskeletal: pulses present, edema present 1+ pitting edema in both lower extremities Dx/Plan (1) Colon cancer Code(s): C18.9 - MALIGNANT NEOPLASM OF COLON, UNSPECIFIED Status: Acute (2) Hypertension Code(s): I10 - ESSENTIAL (PRIMARY) HYPERTENSION Status: Acute (3) Bowel obstruction Code(s): K56.609 - UNSP INTESTNL OBST, UNSP TO PARTIAL VERSUS COMPLETE OBST Status: Acute - Plan * HTN- blood pressure has been in an acceptable range only one elevated value today * Leukocytosis- ? etiology. CT scan of the abdomen was noted- she has evidence of bilateral pleural effusion, and adjacent consolidation- she may have developed a pneumonia- will culture her blood and urine, and start empiric antibiotics- Zosyn * Continue to monitor the trend * Colon cancer with Bowel Obstruction- continue as per General Surgery
[2018-06-16] MEDS: Sodium Chloride 0.9% 500 ML IV SCH (14:58)
[2018-06-16] MEDS: Piperacillin/Tazobactam 3.375 GM in Sodium Chloride 0.9% 100 ML IVPB SCH ×2 (17:39→23:48)
[2018-06-16] MEDS ORDERED: VANCOMYCIN IVPB PRN (17:44)
[2018-06-16] MEDS ORDERED: Vancomycin HCl 1 GM in Premix Bag 1 BAG IVPB SCH ×2 (18:00→21:00)
--- NOTE | 2018-06-16 19:25 | PRG ---
DATE OF SERVICE: 06/16/2018 REASON FOR CONSULTATION: Nausea, vomiting, abnormal GI imaging. SUBJECTIVE: Per nursing staff, the patient has not had any output from her colostomy over the last 12 to 24 hours. While from her NG tube, she has had approximately 750 mL of dark brown/bilious fluid with the low intermittent wall suction. Today, she states that her nausea and vomiting are much improved with no additional episodes of vomiting today. She does have some mild abdominal pain that she states is roughly in the periumbilical region, but the patient's speech is very difficult to discern given her extremely dry mouth and garbled speech. Per nursing staff, she also has not had any urine output today or no significant urine output over the last shift. Currently, she denies any nausea, vomiting, fevers, chills, GI bleeding. OBJECTIVE: VITAL SIGNS: Temperature 97.5, pulse 60, blood pressure 158/64, respiratory rate 22, and saturating 96% on 2 L nasal cannula. GENERAL: The patient was lying in bed, in no acute distress. Alert and oriented x2, possibly 3, but difficult to discern due to the patient's garbled speech. CARDIOVASCULAR: Regular rate and rhythm with no discernible murmurs, gallops, or rubs. RESPIRATORY: Clear to auscultation in the upper lung mckeon, but diminished breath sounds heard in bilateral lower lung mckeon. ABDOMEN: Hypoactive bowel sounds. Soft. Mild to moderate abdominal distention with tenderness to palpation along the right side of her abdomen as well as periumbilical region. EXTREMITIES: No cyanosis or clubbing. Nonpitting edema noted in both the upper and lower extremities. LABORATORY DATA: CBC with a white blood cell count 26.3, hemoglobin 8.9, hematocrit 28.1, and platelets 615. Chemistry with a sodium of 147, potassium 3.4, chloride 111, CO2 of 20, BUN 15, creatinine 1.08, and glucose 88. IMAGING DATA: CT of the abdomen obtained on June 15, 2018 showed interval left lower quadrant colostomy at the level of the distal transverse colon with interval hemicolectomy but it also showed marked abnormal thickening of the gastric wall, but the stomach was nondistended and did not have any oral contrast which further limits the assessment. Also seen on this scan was generalized increased density of the small bowel wall, indicative of hyperemia as well as small associated ascites and mesenteric edema. ASSESSMENT AND PLAN: The patient is an 83-year-old female with past medical history of chronic lower back pain, hypothyroidism, chronic obstructive pulmonary disease, hypertension, peripheral arterial disease, and tobacco abuse, initially presenting with colonic obstruction secondary to colonic malignancy, now status post surgical resection with colostomy placement, but hospitalization further complicated by what appears to be evolving pneumonia and possible ileus. Nausea/vomiting/ileus. The patient initially presented to the hospital with left lower quadrant abdominal pain radiating to involve the entire generalized abdomen. Per imaging, there was an obstructive lesion at the splenic flexure with dilation of the colon proximal to that. She subsequently underwent surgical resection with a malignancy discovered at that time. Attempts to access this lesion with flexible sigmoidoscopy were unsuccessful due to significant retained colonic stool. During the course of this hospitalization, she was intubated and on mechanical ventilation with the ICU, but has successfully been extubated and transferred to floor. However, over the last three days, she has exhibited increased episodes of nausea and vomiting with obtaining dark brown/bilious fluid through the NG tube. Her nausea and vomiting had since resolved after the placement of the NG tube, but given the lack of output through the colostomy and significant output through the NG tube, it is concerning for a possible obstructive-type process and/or ileus. Given the nondilation of either the colon or the small bowel on imaging obtained yesterday, intestinal ileus is more likely. However, she does also have findings consistent with bilateral pleural effusions and a possible evolving pneumonia and given her mechanical ventilation during this hospitalization, it is concerning for an evolving healthcare-associated pneumonia. Also, she does have some nonpitting edema present on physical examination, but upon evaluation of her oral mucosal membranes, they are significantly dry, impeding her ability to speak, which lends itself towards possible extracellular edema with depletion of her intravascular space. Per physical exam and examination of the NG tube output, there was no evidence of GI bleeding at this time. RECOMMENDATIONS: 1. Given the possible evolving pneumonia, I think coverage for possible evolving HCAP would be reasonable with broader spectrum antibiotics administered. 2. We would continue with NG tube at low intermittent wall suction and monitoring for possible GI bleeding given the trauma of the NG tube side port within the interior of the stomach. 3. Upper endoscopy is not indicated at this time due to the decompressed stomach on imaging, which could lend itself toward an appearance of marked wall thickening, lack of GI bleeding/blood loss through the NG tube and evolving pneumonia making any endoscopic intervention with an increased risk of complication. 4. Given her nutritional status and n.p.o. status for possible ileus/bowel obstruction, if the patient is not able to resolve these issues over the next 24 to 48 hours, would consider possible placement on TPN for nutritional support. 5. We would consider small aliquots of IV fluid administration given probable depletion of her intravascular space. 6. We will continue to follow. Please call with any questions. Job ID: [id number]
[2018-06-16] MEDS: Enoxaparin Sodium 30 MG/0.3 ML SYRINGE SC SCH (20:28)
[2018-06-16] MEDS: Atorvastatin Calcium 40 MG TAB PO SCH (20:28)
[2018-06-17] MEDS: Sodium Chloride 0.9% 1,000 ML IV SCH (02:34)
[2018-06-17 03:50] LABS: Band 5 % (5-11); Hemoglobin 8.8 g/dL (12.0-16.0); Hypochromia SLIGHT = 6-15 cells (100X) (0-5/hpf); Lymphocytes 4 % (21-51); MDiff Complete? YES; Mean Corpuscular HGB CONC 30.7 g/dL (32.0-36.0); Mean Corpuscular Volume 97.6 fL (78.0-98.0); Mean Platelet Volume 6.8 fL (7.4-10.4); Monocytes 3 % (0-10); Neutrophil 88 % (42-75); Platelet Count 615 thou/uL (130-400); Platelet Morphology Comment Appears Adequate; RBC Distribution Width 14.2 % (11.5-14.5); Red Blood Cell (RBC) Count 2.94 mill/uL (4.20-5.40); White Blood Cell (WBC) Count 21.8 thou/uL (4.8-10.8)
[2018-06-17] MEDS ORDERED: Sodium Chloride 0.9% 500 ML IV SCH (04:00)
[2018-06-17] MEDS: Sodium Chloride 0.9% 500 ML IV SCH (04:02)
[2018-06-17] MEDS: Piperacillin/Tazobactam 3.375 GM in Sodium Chloride 0.9% 100 ML IVPB SCH ×3 (05:10→17:35)
[2018-06-17] MEDS: Levothyroxine Sodium 75 MCG TAB PO SCH (05:10)
[2018-06-17] MEDS ORDERED: Dextrose 5% in Water 1,000 ML IV PRN (09:13)
[2018-06-17] MEDS ORDERED: Dextrose 50% Abboject 50 ML SYRINGE SLOW IVP PRN (09:13)
[2018-06-17] MEDS ORDERED: Sodium Chloride 0.45% 500 ML IV SCH (09:30)
[2018-06-17] MEDS: Polyethylene Glycol 3350 17 GM Packet PO SCH (09:40)
[2018-06-17] MEDS ORDERED: Acetaminophen 1,000 MG in Premix Bag 1 BAG IVPB PRN (09:42)
[2018-06-17] MEDS: Citalopram 20 MG TAB PO SCH (09:43)
[2018-06-17] MEDS: Amlodipine 10 MG TAB PO SCH (09:43)
[2018-06-17] MEDS: Clopidogrel Bisulfate 75 MG TAB PO SCH (09:43)
[2018-06-17] MEDS: Famotidine/PF 20 mg/2ml Vial SLOW IVP SCH (09:43)
[2018-06-17] MEDS: Potassium Chloride 20 MEQ TAB PO SCH (09:43)
[2018-06-17] MEDS: Spironolactone 25 MG TAB PO SCH (09:44)
--- NOTE | 2018-06-17 10:26 | PRG ---
DATE OF SERVICE: 06/17/2018 SUBJECTIVE: Postoperative day June 05, 2018 and June 07, 2018, for laparotomy, resection of obstructing colon cancer with subsequent reexploration, colostomy, noting viable terminal ileum, which during the initial operation required adhesiolysis with mesenteric window created in that process revealing viable small bowel, not requiring small-bowel resection. Postoperatively, she seemed to do well, tolerating tube feedings and was extubated, but then developed nausea and vomiting. NG tube was placed and she has had about 400 to 500 mils a day of enteric drainage. CAT scan obtained 2 days ago reveals some thickened gastric wall, good NG tube placement without significant small-bowel dilatation. She has not had a significant colostomy output in the last 72 hours. Her colostomy is viable. Plan is to discontinue her oral medications, which have been crushed and given per NG tube. We will initiate TPN. Keep her n.p.o. except for sips and chips. She is 4 feet 11 inches, 131 pounds, 26 BMI. Temperature 97.6 degrees, pulse 61, respirations 20, blood pressure 153/67. Urine output was low yesterday and she was given fluid boluses as has been low overnight. Renal function last checked yesterday was normal with diminishing creatinine down to 1.08 and GFR 48. We will recheck this tomorrow. Last phosphorus checked was on 06/08/2018, was low. We will recheck that tomorrow. Calcium was normal. Magnesium was normal on 06/09/2018 at 1.8. OBJECTIVE: LUNGS: Clear to auscultation. CARDIAC: Regular rate and rhythm without murmur or gallop. ABDOMEN: Soft. No bowel sounds. Colostomy healthy. Abdomen is nontender. EXTREMITIES: Unremarkable. LABORATORY DATA: This morning, her white count is 21,000 down from 26,000 yesterday; hemoglobin is stable at 8.8. ASSESSMENT AND PLAN: 1. Postoperative ileus. Her white count was normalizing on 06/12, but is severely increased on 06/13 until yesterday. It peaked at 26,000, today is 21,000. Vancomycin has been started. Cultures have been negative. CAT scan does not reveal any definitive abscess. It is more consistent with an ileus. At this point, would initiate TPN. Discontinue her oral medications and change her to n.p.o. status except for sips and chips of water. Await resolution of this ileus. Would start her on IV Synthroid. 2. Deconditioning. Continue physical therapy and orders to be out of bed. Apparently, she was not out of bed yesterday, but she does have physical therapy ordered and that needs to be continued. She is not ready to go to rehab until her GI function is stable. 3. Open abdomen. Continue wound care with wound VAC, view wound. Next VAC change tomorrow. 4. Acute kidney injury is improving and renal function normalized yesterday. We will recheck that tomorrow. Echocardiogram obtained this hospitalization on 06/06/2018 revealed EF of 55%, moderate aortic regurgitation, mild TR, and some degree of diastolic dysfunction. 5. Continue DVT prophylaxis with Lovenox 30 per day. If her renal function is normalized tomorrow, we can increase that to 40 per day. Job ID: [id number]
--- NOTE | 2018-06-17 11:15 | PRG ---
DATE OF SERVICE: 06/17/2018 SUBJECTIVE: Ms. Barnes does not look good at all today. She is barely able to talk. She is receiving a bolus of IV fluids. OBJECTIVE: VITAL SIGNS: Temperature 97.6, pulse 70, respirations 20, blood pressure 153/67, 24-hour intake 3100, output 940. HEENT: She has severe mucositis. NECK: No JVD. LUNGS: Coarse breath sounds. CARDIAC: S1 and S2, regular. ABDOMEN: Soft. EXTREMITIES: No edema. LABORATORY DATA: White blood cell count 21.8, hematocrit 28.7, and platelet count 615. Sodium 147, potassium 3.7, chloride 111, CO2 of 20, BUN 15, creatinine 1.1 , and glucose 88. ASSESSMENT: Ms. Barnes looks much worse. This could be her chronic obstructive pulmonary disease, compounded on every other problem she has right now. PLAN: She needs to be moved to the CCU, restart BiPAP. She needs vigorous oral care, needs to continue antibiotics, can be closely monitored as she could face prospect of being intubated. Job ID: [id number] MTDD
[2018-06-17 13:29] LABS: Anion Gap 16 mmol/L (10-20); BUN (Urea Nitrogen) 21 mg/dL (9.8-20.1); Calc. Creatinine Clearance 28 mL/min (70-130); Calcium 6.8 mg/dL (7.8-10.44); Carbon Dioxide 22 mmol/L (23-31); Chloride 112 mmol/L (98-107); Estimated GFR-MDRD 36; Glucose 107 mg/dL (83-110); Potassium 3.5 mmol/L (3.5-5.1); Sodium 146 mmol/L (136-145)
[2018-06-17] MEDS: Sodium Chloride 0.45% 1,000 ML IV SCH ×2 (13:41)
--- NOTE | 2018-06-17 13:57 | SPC ---
SONOGRAPHIC GUIDED RIGHT UPPER EXTREMITY PICC: HISTORY: Need for long-term nutrition and IV access. FINDINGS: After explaining the procedure and answering all questions, the right upper extremity was prepped and draped in the usual sterile fashion. Sonographic evaluation showed very small brachial vein. The b asilic and cephalic veins were so small that they were barely visible on sonography. Sterile technique, buffered local anesthesia, sonographic guidance, and a 22-gauge needle were used t o carefully access the right brachial vein. Standard technique was then used to place the tip of a 5 Hungarian dual-lumen PICC so that the tip lies at the level of the superior vena cava. The catheter wa s flushed and secured externally. The patient tolerated the procedure well and was returned in uncha nged condition. Fluoro time 0.2 minutes. IMPRESSION: Right upper extremity PICC is ready for use. POS: [facility]
[2018-06-17] MEDS: [UNRECOGNIZED DRUG - OTHER] IV SCH (14:05)
[2018-06-17] MEDS: SODIUM ACETATE IV SCH (14:05)
[2018-06-17] MEDS: CALCIUM CHLORIDE IV SCH (14:05)
--- NOTE | 2018-06-17 14:11 | RAD ---
UPRIGHT PORTABLE CHEST 1 VIEW: HISTORY: Hypoxia. COMPARISON: 06/09/2018. FINDINGS: Left central line, right PICC line, and NG tubes are in place. Dorsal column stimulator leads overli e the lower mid thoracic spine. Minimal patchy parenchymal changes in the lower lung zones with some costophrenic angle blunting raising concern for some pleural effusion and possibly some bibasilar in filtrate or subsegmental atelectasis. IMPRESSION: Evidence for bilateral pleural effusions and possibly mild bibasilar subsegmental atelectasis. The m id and upper lung zones are clear. Atherosclerosis of the aorta. POS: [facility]
[2018-06-17 14:53] LABS: Actual Bicarbonate (HCO3a) 23.2 mEq/L (22-28); Base Excess (BEa) -4.1 mEq/L (-2.0 to +3.0); CO2 Tension 55.4 mmHg (35.0-45.0); Calcium, Ionized 0.97 mmol/L (1.12-1.30); Carboxyhemoglobin (COHb) 1.1 gm% (0.0-3.0); Hemoglobin (Hb) 7.7 g/dL (12.0-16.0); O2 Tension (PaO2) 115.2 mmHg (> 60.0); Potassium - ABG Lab 3.33 mmol/L (3.70-5.30)
[2018-06-17 14:57] LABS: Puncture Site RR; pH, Arterial 7.24 (7.35-7.45)
[2018-06-17] MEDS: hydrALAZINE 20 MG/ML VIAL SLOW IVP PRN (16:23)
[2018-06-17 17:21] LABS: Vancomycin, Random 11.4 ug/mL (See Comment)
--- NOTE | 2018-06-17 17:58 | PRG ---
DATE OF SERVICE: 06/17/2018 REASON FOR CONSULTATION: Nausea, vomiting, and abnormal GI imaging. SUBJECTIVE: This morning, the patient was having difficulty conversing as well as difficulty with respiration and was subsequently transferred to the ICU, placed on BiPAP. Currently, she is on BiPAP, but minimally responsive to verbal stimuli, although she is responsible to tactile stimuli. Upon conversing with nursing staff, she has had approximately 100 to 200 mL of dark brown/bilious fluid from the NG tube at low intermittent wall suction, but otherwise has had minimal output from her NG tube today. She also has not had any significant output from her ostomy as well, although she has not been tolerating oral intake for 24 to 48 hours. She does continue to have some mild abdominal pain to palpation and left to the periumbilical region upon palpation, but otherwise the patient does not contribute to any meaningful interview today. OBJECTIVE: VITAL SIGNS: Temperature 98, pulse 54, blood pressure 191/58, respiratory rate 23, and saturating 97% on BiPAP. GENERAL: The patient is lying in bed, in no acute distress, although she is minimally responsive to verbal stimuli and unable to contribute to sensorium questions. CARDIOVASCULAR: Regular rate and rhythm. RESPIRATORY: Coarse breath sounds auscultated in all lung mckeon with diminished breath sounds in the bilateral lower lung mckeon consistent with BiPAP. ABDOMEN: Hypoactive bowel sounds. Soft. Mild abdominal distention, tenderness to palpation in the periumbilical region. EXTREMITIES: No cyanosis or clubbing. Nonpitting edema noted in both the upper and lower extremities. LABORATORY DATA: CBC with a white blood cell count of 21.8, hemoglobin 8.8, hematocrit 28.7, platelets 615. Chemistry with sodium of 146, potassium 3.5, chloride 112, CO2 of 22, BUN 21, creatinine 1.41, glucose 107. IMAGING DATA: Chest x-ray obtained on June 17, 2018 showed evidence of bilateral pleural effusions and possible mild bibasilar subsegmental atelectasis, but the mid and upper lung zones are clear. ASSESSMENT AND PLAN: The patient is an 83-year-old female with past medical history of chronic lower back pain, hypothyroidism, chronic obstructive pulmonary disease, hypertension, peripheral arterial disease, and tobacco abuse, who initially presented with colonic obstruction secondary to colonic malignancy, now status post surgical resection with colostomy placement, but her recent hospitalization further complicated by increased work of breathing and probable ileus. Nausea/vomiting/probable ileus. The patient initially presented to the hospital with left lower quadrant abdominal pain, radiating to involve the entire generalized abdomen. Per imaging, she had an obstructive lesion at the splenic flexure with dilation of the colon proximal to the lesion consistent for an obstructive process. She subsequently underwent surgical resection of the malignancy discovered at the splenic flexure. In the postoperative period, she was intubated and on mechanical ventilation while at ICU, but did respond well to management and was successfully extubated and transferred to the floor. However, over the last 48 to 72 hours, she has had increased episodes of nausea and vomiting that resolved with the placement of an NG tube, but she had increased output from the NG tube and had approximately 500 to 750 mL per day over the last 2 days. However, today her NG tube output has decreased significantly and she continues to not have any significant output from her colostomy consistent with a postoperative ileus. Given the non-dilation of either the colon or small bowel on CT obtained on June 15, 2018, it does also make it consistent more with ileus rather than obstruction. Per evaluation by the Pulmonary Service earlier today, the patient did exhibit increased work of breathing concerning for respiratory failure and was transferred to the ICU and placed on BiPAP. While on BiPAP, she has been minimally responsive to verbal questioning/stimuli. Chest x-ray showing bilateral pleural effusions concerning for possible evolving pneumonia. RECOMMENDATIONS: 1. Agree with transfer of the patient to the ICU and management for possible evolving pneumonia. 2. We will continue with NG tube at low intermittent wall suction and monitoring for possible GI bleeding given the increased probability of post surgical ileus. Agree with placement of the patient on TPN given her relative inability to tolerate oral intake and diminished nutritional status. 3. Upper endoscopy is not indicated at this time despite increased wall thickening of the stomach, which I think is due to decompression with the NG tube and artifact on CT scan. 4. Would defer to General Surgery Service for postoperative ileus management. We will sign off at this time. Please call with any additional questions. Job ID: [id number]
[2018-06-17] MEDS ORDERED: Vancomycin HCl 1 GM in Premix Bag 1 BAG IVPB SCH (18:00)
[2018-06-17] MEDS ORDERED: Vancomycin HCl 1.5 GM in Sodium Chloride 0.9% 250 ML 300 ML IVPB SCH (18:00)
[2018-06-17] MEDS: Enoxaparin Sodium 30 MG/0.3 ML SYRINGE SC SCH (21:29)
[2018-06-17] MEDS: Labetalol HCl 100 MG/20 ML VIAL SLOW IVP SCH (21:31)
[2018-06-18] MEDS: Piperacillin/Tazobactam 3.375 GM in Sodium Chloride 0.9% 100 ML IVPB SCH ×5 (00:50→23:15)
[2018-06-18] MEDS: Sodium Chloride 0.45% 1,000 ML IV SCH ×4 (01:50→20:53)
[2018-06-18] MEDS: Levothyroxine 100 MCG SDV IVP SCH (05:30)
[2018-06-18 05:40] LABS: #Eosinphils 0.2 thou/uL (0.0-0.7); #Lymphocytes 0.5 thou/uL (1.20-3.40); #Monocytes 0.8 thou/uL (0.11-0.59); #Neutrophils 10.6 thou/uL (1.40-6.50); %Eosinophils 1.6 % (0.0-10.0); %Lymphocytes 4.2 % (21.0-51.0); %Monocytes 6.7 % (0.0-10.0); %Neutrophils 87.5 % (42.0-75.0); Hemoglobin 8.2 g/dL (12.0-16.0); Mean Corpuscular HGB CONC 31.4 g/dL (32.0-36.0); Mean Corpuscular Hemoglobin 30.6 pg (27.0-31.0); Mean Corpuscular Volume 97.7 fL (78.0-98.0); Mean Platelet Volume 7.1 fL (7.4-10.4); Platelet Count 540 thou/uL (130-400); RBC Distribution Width 14.3 % (11.5-14.5); Red Blood Cell (RBC) Count 2.67 mill/uL (4.20-5.40); White Blood Cell (WBC) Count 12.2 thou/uL (4.8-10.8)
[2018-06-18 05:59] LABS: ALT (SGPT) 13 U/L (8-55); AST (SGOT) 17 U/L (5-34); Alkaline Phosphatase 60 U/L (40-150); Anion Gap 14 mmol/L (10-20); BUN (Urea Nitrogen) 32 mg/dL (9.8-20.1); Bilirubin, Total 0.3 mg/dL (0.2-1.2); Calc. Creatinine Clearance 23 mL/min (70-130); Calcium 6.7 mg/dL (7.8-10.44); Carbon Dioxide 24 mmol/L (23-31); Chloride 111 mmol/L (98-107); Estimated GFR-MDRD 29; Globulin 2.8 g/dL (2.4-3.5); Glucose 165 mg/dL (83-110); Magnesium 1.7 mg/dL (1.6-2.6); Potassium 3.1 mmol/L (3.5-5.1); Protein, Total 4.8 g/dL (6.0-8.3); Sodium 146 mmol/L (136-145)
[2018-06-18 06:16] LABS: Phosphorus 1.8 mg/dL (2.3-4.7)
[2018-06-18] MEDS ORDERED: Potassium Phosphate 30 MMOL in Sodium Chloride 0.9% 500 ML IVPB SCH (06:45)
--- NOTE | 2018-06-18 06:53 | PRG ---
DATE OF SERVICE: 06/18/2018 SUBJECTIVE: Ms. Barnes rested on BiPAP all night. This morning, I took her off BiPAP and she was very dysarthric. She had a very nasty looking tongue even with oral hygiene. She still had trouble talking, therefore, I did aggressive NT suctioning and was able to remove most of the exudate from the back her throat, and she was able to talk again. She looks comfortable without the BiPAP so far. OBJECTIVE: HEENT EXAM: Otherwise unremarkable except for the mucositis in the tongue. NECK: No JVD. CHEST: Fairly clear anteriorly. CARDIAC: S1, S2. Regular. ABDOMEN: Soft. Bowel sounds quiet. EXTREMITIES: No edema. LABORATORY DATA: White blood cell count 12.2, down from 21.8, hematocrit 26.0, and platelet count 540. Sodium 146, potassium 3.1, chloride 111, CO2 of 24, BUN 32, creatinine 1.7, glucose 165, calcium 6.7, phosphorus 1.8. ASSESSMENT: 1. Acute respiratory failure secondary to upper airway obstruction from secretions. 2. Underlying severe chronic obstructive pulmonary disease. 3. Ileus. 4. Status post colon resection and colostomy secondary to obstructing colon mass. PLAN: 1. Try to keep off BiPAP as long as tolerated. 2. Add antifungal therapy. 3. Focus on oral care. 4. Replace potassium and phosphate. Job ID: [id number]
[2018-06-18] MEDS: Fluconazole In NaCl,Iso-Osm 200 MG in Premix Bag 1 BAG IVPB SCH (08:28)
[2018-06-18] MEDS: Labetalol HCl 100 MG/20 ML VIAL SLOW IVP SCH ×2 (08:28→20:19)
[2018-06-18] MEDS: Pantoprazole 40 MG VIAL IVP SCH (08:28)
--- NOTE | 2018-06-18 08:56 | PRG ---
DATE OF SERVICE: 06/18/2018 SUBJECTIVE: Eliana Barnes is in ICU. She is awake. She is afebrile. She has a central line in place. OBJECTIVE: VITAL SIGNS: Heart rate 63, blood pressure 141/54. NG tube in place, has drained 500 mL since placement. Urine output is adequate. LUNGS: Rhonchi at base. CARDIAC: Regular rate and rhythm. ABDOMEN: Soft, quiet, ostomy healthy. LABORATORY DATA: White count is 12,000, hemoglobin 8.2. Basic metabolic profile reveals sodium 146, potassium 3.1, chloride 111, BUN 32, creatinine 1.69, GFR 29. Cultures reveal urine Klebsiella pneumoniae 10 to [id number], this was from a Briggs catheter. Blood culture MRSA one of two cultures. The patient is on vancomycin and zosyn. ASSESSMENT AND PLAN: 1. Acute kidney injury. Continue monitoring. 2. Methicillin-resistant Staphylococcus aureus bacteremia. Her central line was removed yesterday and a PICC line inserted around the time of these cultures and event. It is likely she suffered a line bacteremia. She is on appropriate antibiotics. 3. Ileus. Abdominal x-rays pending this morning. These will have to be done portable. Continue NG tube suction. Await colostomy function. Hopefully, this is just an ileus related to MRSA bacteremia. 4. Respiratory compromise. Continue monitor in the ICU care per Dr. Tsai. 5. Low potassium and phosphate, replace. Job ID: [id number]
--- NOTE | 2018-06-18 09:52 | RAD ---
CHEST ONE VIEW: HISTORY: Postop. COMPARISON: 06/09/2018 FINDINGS: Heart size is enlarged. A dorsal column stimulator is present. An NG tube is below the hemidiaphrag m. A right-sided PICC line is present, with the catheter tip overlying the distal superior vena cava . Parenchymal lung changes are similar to the previous exam. IMPRESSION: Cardiomegaly with stable parenchymal lung change. POS: [facility]
--- NOTE | 2018-06-18 09:54 | RAD ---
KUB: HISTORY: Postop ileus. FINDINGS: An NG tube is seen with the tip in the stomach. The bowel gas pattern appear nonobstructed. There i s a paucity of bowel gas present, but I do not see any fluid-filled, dilated small bowel loops. Post operative changes of the lumbar spine are noted. Surgical juni are seen over the left lower quadr ant. IMPRESSION: No signs of obstruction. POS: [facility]
[2018-06-18] MEDS: Insulin Regular 300 UNITS/3 ML VIAL SC PRN ×2 (10:10→16:07)
[2018-06-18] MEDS: Ketorolac Tromethamine 30 MG/ML VIAL IVP PRN ×2 (12:12→23:18)
[2018-06-18] MEDS ORDERED: Acetaminophen 1,000 MG in Premix Bag 1 BAG IVPB PRN (12:25)
[2018-06-18] MEDS: CALCIUM CHLORIDE IV SCH (14:45)
[2018-06-18] MEDS: SODIUM ACETATE IV SCH (14:45)
[2018-06-18] MEDS: [UNRECOGNIZED DRUG - OTHER] IV SCH (14:45)
--- NOTE | 2018-06-18 15:13 | PDOC.PN ---
- Subjective Encounter Start Date: 06/18/18 Encounter Start Time: 15:11 Ms. Barnes was seen today in follow-up of HTN and colon cancer. She was moved to the ICU last night due to difficulty breathing. She was placed on BiPAP, and has since been weaned off. - Objective MAR Reviewed: Yes Vital Signs & Weight: Vital Signs (12 hours) Temp Pulse Pulse Pulse Resp BP BP 06/18/18 14:46 74 22 H 06/18/18 13:15 66 62 98/62 06/18/18 12:00 98.1 F 06/18/18 11:21 66 20 06/18/18 08:28 50 L 141/67 H 06/18/18 07:34 63 23 H 06/18/18 07:31 06/18/18 07:00 97.9 F 06/18/18 04:00 98.0 F BP Pulse Ox Pulse Ox Pulse Ox 06/18/18 14:46 06/18/18 13:15 152/74 H 92 L 95 06/18/18 12:00 06/18/18 11:21 96 06/18/18 08:28 06/18/18 07:34 06/18/18 07:31 94 L 06/18/18 07:00 06/18/18 04:00 Weight Admit Weight 131 lb Weight 131 lb 1.6 oz Most Recent Monitor Data Heart Rate from ECG 61 NIBP 147/72 NIBP BP-Mean 97 Respiration from ECG 20 SpO2 98 I&O: 06/17/18 06/18/18 06/19/18 06:59 06:59 06:59 Intake Total 3100 2477 200 Output Total 940 2050 177 Balance 2160 427 23 Result Diagrams: 06/18/18 05:25 06/18/18 05:25 Additional Labs: Accuchecks 06/18/18 06/18/18 09:59 05:35 POC Glucose 174 H 163 H Phys Exam - Physical Examination HEENT: PERRLA Respiratory: no wheezing, no rales, no rhonchi, clear to auscultation bilateral Cardiovascular: RRR, no significant murmur, no rub Gastrointestinal: soft, no distention, positive bowel sounds + mild diffuse tenderness Musculoskeletal: pulses present, edema present Dx/Plan (1) Colon cancer Code(s): C18.9 - MALIGNANT NEOPLASM OF COLON, UNSPECIFIED Status: Acute (2) Hypertension Code(s): I10 - ESSENTIAL (PRIMARY) HYPERTENSION Status: Acute (3) Bowel obstruction Code(s): K56.609 - UNSP INTESTNL OBST, UNSP TO PARTIAL VERSUS COMPLETE OBST Status: Acute (4) MRSA bacteremia Code(s): R78.81 - BACTEREMIA Status: Acute - Plan * HTN- blood pressure has been in an acceptable range * Blood cultures have grown MRSA- will continue Vancomycin * Urine culture appears to be a contaminant * Continue Zosyn * She has been started on TPN for Nutritional support
[2018-06-18] MEDS: Vancomycin HCl 1.5 GM in Sodium Chloride 0.9% 250 ML 300 ML IVPB SCH (17:39)
[2018-06-18] MEDS: Enoxaparin Sodium 30 MG/0.3 ML SYRINGE SC SCH (20:54)
[2018-06-19] MEDS: Sodium Chloride 0.45% 1,000 ML IV SCH ×2 (02:14→08:15)
[2018-06-19] MEDS: hydrALAZINE 20 MG/ML VIAL SLOW IVP PRN ×2 (04:18→10:31)
[2018-06-19] MEDS: Insulin Regular 300 UNITS/3 ML VIAL SC PRN (04:48)
[2018-06-19] MEDS: Piperacillin/Tazobactam 3.375 GM in Sodium Chloride 0.9% 100 ML IVPB SCH ×4 (05:17→23:43)
[2018-06-19] MEDS: Levothyroxine 100 MCG SDV IVP SCH (05:41)
[2018-06-19 06:53] LABS: Anion Gap 10 mmol/L (10-20); BUN (Urea Nitrogen) 48 mg/dL (9.8-20.1); Calc. Creatinine Clearance 21 mL/min (70-130); Calcium 6.7 mg/dL (7.8-10.44); Carbon Dioxide 25 mmol/L (23-31); Chloride 111 mmol/L (98-107); Estimated GFR-MDRD 25; Glucose 139 mg/dL (83-110); Sodium 143 mmol/L (136-145)
[2018-06-19 06:55] LABS: Phosphorus 2.8 mg/dL (2.3-4.7)
[2018-06-19 06:57] LABS: Potassium 2.7 mmol/L (3.5-5.1)
[2018-06-19 07:46] LABS: Band 37 % (5-11); Eosinophils 6 % (0-10); Lymphocytes 8 % (21-51); MDiff Complete? YES; Mean Corpuscular HGB CONC 31.7 g/dL (32.0-36.0); Mean Corpuscular Hemoglobin 30.9 pg (27.0-31.0); Mean Corpuscular Volume 97.3 fL (78.0-98.0); Mean Platelet Volume 7.3 fL (7.4-10.4); Metamyelocyte 2 % (0-0); Monocytes 1 % (0-10); Neutrophil 46 % (42-75); Nucleated RBC 1 % (0); Platelet Count 481 thou/uL (130-400); RBC Distribution Width 14.3 % (11.5-14.5); Red Blood Cell (RBC) Count 2.58 mill/uL (4.20-5.40)
[2018-06-19] MEDS ORDERED: Potassium Chloride 40 MEQ in Premix Bag 1 BAG IVPB SCH ×2 (08:15→23:30)
[2018-06-19] MEDS: Fluconazole In NaCl,Iso-Osm 200 MG in Premix Bag 1 BAG IVPB SCH (08:34)
[2018-06-19] MEDS: Pantoprazole 40 MG VIAL IVP SCH (08:35)
[2018-06-19] MEDS: Labetalol HCl 100 MG/20 ML VIAL SLOW IVP SCH ×2 (08:36→20:12)
[2018-06-19] MEDS ORDERED: Calcium Gluc 4.6 MEQ/10 ML (100 MG/ML) SLOW IVP SCH (11:15)
--- NOTE | 2018-06-19 11:21 | PRG ---
DATE OF SERVICE: 06/19/2018 SUBJECTIVE: The patient reports that she is not having much pain. She did have occasional nausea, really not putting anything out her colostomy. Nurses noticed gross hematuria with occasional clots. She has been on TPN now for about 36 hours. OBJECTIVE: VITAL SIGNS: Her heart rate 70, blood pressure 172/70. GENERAL: She is looking anasarca. She has got quite a bit of edema everywhere. HEENT: Her tongue is crusted. LUNGS: Somewhat clear. ABDOMEN: Soft, obese. The ostomy is viable, but really no air. A little bit of serous fluid coming out the ostomy. Urine is blood tinged. Urine output is only 100 mL. It was 660 yesterday. LABORATORY DATA: Her white count is 10, H and H 8 and 25, platelet count 481. Electrolytes show her potassium is only 2.7, her creatinine is 1.9, BUN of 48. ASSESSMENT: She is intravascularly dry, but total body fluid up with hematuria. PLAN: Nephrology consult. Discussed with the life insurance salesperson who is going to do a heart workup to make sure she is not in CHF. Continue TPN. Job ID: [id number]
--- NOTE | 2018-06-19 11:25 | PRG ---
DATE OF SERVICE: 06/19/2018 SERVICE: Pulmonary Medicine. INTERVAL HISTORY: The patient is doing okay from respiratory standpoint. She has been off BiPAP for over 24 hours. She started having gross hematuria. She cannot provide any additional elements of the history right now. She is able to work with Physical Therapy to some extent today. She was sleeping fairly comfortably. I woke her up and she woke up easily. She stayed awake and was following commands. She remains extraordinarily weak. PHYSICAL EXAMINATION: VITAL SIGNS: Afebrile, pulse 72, blood pressure 172/70, respirations 27, and saturation 97% on 2 L nasal cannula. GENERAL: The patient is awake and alert, in no apparent distress. LUNGS: Decent air entry. Dependent crackles are noted. HEART: Normal rate and regular. ABDOMEN: Soft, nontender, and nondistended. Bowel sounds are positive. MUSCULOSKELETAL: No cyanosis or clubbing. There is diffuse 2+ to 3+ pitting throughout. GENITOURINARY: Briggs catheter in place. NEUROLOGIC: Grossly nonfocal. She is diffusely weak. LABORATORY DATA: WBC 10.0, hemoglobin 8.0, and platelets 481,000. INR 1.3. Sodium 143, potassium 2.7, magnesium 1.7, creatinine 1.90, which is up-trending, and BUN 48. Basic metabolic profile is otherwise unremarkable. Vancomycin level is 11.4. Klebsiella pneumoniae and yeast species are growing in the Briggs catheter. Methicillin-resistant Staph aureus is growing in 2/2 blood cultures. IMAGIN. Chest x-ray demonstrates cardiomegaly, stable parenchymal lung changes. Spinal stimulators in place. There is a right PICC line, which terminates in decent position. Likely bilateral effusions are present. There is also cephalization and pulmonary vascular congestion noted. 2. Abdominal x-ray demonstrates no evidence of obstruction. ASSESSMENT: 1. Acute hypoxic respiratory failure. 2. Chronic obstructive pulmonary disease, severe. 3. Ileus, postop. 4. Obstruction of colon secondary to adenocarcinoma, status post partial colectomy, postop day 14. DISCUSSION AND PLAN: The patient is on good antibiotics. Supportive measures will be continued. We will continue focusing efforts on mobilizing the patient through time. We will use BiPAP if needed. From my position, she can be downgraded to the [facility]. Pulmonary Critical Care will continue to follow very closely while she remains in-house. Potassium will be replaced today. Job ID: [id number]
[2018-06-19] MEDS ORDERED: Furosemide 40 MG/4 ML VIAL SLOW IVP SCH (11:45)
[2018-06-19] MEDS: Dextrose 5% in Water 1,000 ML IV SCH (11:51)
[2018-06-19] MEDS ORDERED: SODIUM CHLORIDE 0.9% IVPB SCH (12:00)
[2018-06-19] MEDS ORDERED: CALCIUM GLUCONATE IVPB SCH (12:00)
--- NOTE | 2018-06-19 12:19 | PDOC.PN ---
- Subjective Encounter Start Date: 06/19/18 Encounter Start Time: 09:10 Ms. Barnes was seen today in follow-up of hypertension management. She is awake and alert. Her voice is weak and it is apparent that it is difficult for her to talk with such a dry mouth, but I can understand when she tells me she does not have dyspnea, and she denies abdominal pain. - Objective MAR Reviewed: Yes Vital Signs & Weight: Vital Signs (12 hours) Temp Pulse Resp BP Pulse Ox 06/19/18 10:45 69 19 06/19/18 10:31 70 172/70 H 06/19/18 08:36 68 126/54 L 06/19/18 07:12 97 06/19/18 07:00 98.9 F 06/19/18 06:54 67 24 H 06/19/18 04:18 67 06/19/18 03:07 97 06/19/18 03:00 97.9 F Weight Admit Weight 131 lb Weight 131 lb 1.6 oz Most Recent Monitor Data Heart Rate from ECG 79 NIBP 113/74 NIBP BP-Mean 87 Respiration from ECG 23 SpO2 97 I&O: 06/18/18 06/19/18 06/20/18 06:59 06:59 06:59 Intake Total 2477 3837 0 Output Total 2050 2969 110 Balance 427 868 -110 Result Diagrams: 06/19/18 06:13 06/19/18 06:13 Additional Labs: Accuchecks 06/19/18 06/18/18 06/18/18 04:46 21:53 15:49 POC Glucose 151 H 124 H 173 H Phys Exam - Physical Examination HEENT: PERRLA Respiratory: no wheezing, no rales, no rhonchi, clear to auscultation bilateral Cardiovascular: RRR, no significant murmur, no rub Gastrointestinal: soft, non-tender, positive bowel sounds Musculoskeletal: pulses present, edema present trace pedal edema bilaterally Dx/Plan (1) Colon cancer Code(s): C18.9 - MALIGNANT NEOPLASM OF COLON, UNSPECIFIED Status: Acute (2) Hypertension Code(s): I10 - ESSENTIAL (PRIMARY) HYPERTENSION Status: Acute (3) Bowel obstruction Code(s): K56.609 - UNSP INTESTNL OBST, UNSP TO PARTIAL VERSUS COMPLETE OBST Status: Acute (4) MRSA bacteremia Code(s): R78.81 - BACTEREMIA Status: Acute (5) Hypokalemia Code(s): E87.6 - HYPOKALEMIA Status: Acute - Plan * HTN- blood pressure is again labile- will continue with PRN medications * Hypokalemia- will replace- and check a serum Magnesium level * MRSA Bacteremia- continue Vancomycin ( from line infection and Central Line has been removed) * Bowel Obstruction- she continues to require an NG tube, Nutritional support with TPN.
[2018-06-19] MEDS: Calcium Gluconate 4.6 MEQ in Sodium Chloride 0.9% 100 ML IVPB SCH ×2 (13:07→16:35)
[2018-06-19] MEDS: [UNRECOGNIZED DRUG - OTHER] IV SCH (14:00)
[2018-06-19] MEDS: CALCIUM CHLORIDE IV SCH (14:00)
[2018-06-19] MEDS: SODIUM ACETATE IV SCH (14:00)
[2018-06-19] MEDS: Potassium Chloride 40 MEQ in Premix Bag 1 BAG IVPB SCH ×2 (14:07→23:40)
--- NOTE | 2018-06-19 14:14 | ULT ---
BILATERAL RENAL ULTRASOUND: Date: 06/19/18 INDICATION: Elevated creatinine and gross hematuria. FINDINGS: The right kidney measures 9.0 x 4.3 x 4.0 cm. The left kidney measures 7.8 x 4.4 x 3.3 cm. There is a Briggs catheter in the decompressed bladder. IMPRESSION: No focal renal lesion of hydronephrosis. POS: [facility]
[2018-06-19] MEDS ORDERED: Budesonide 0.5 MG/2 ML NEB ONE (16:55)
[2018-06-19 17:15] LABS: Vancomycin, Random 35.9 ug/mL (See Comment)
[2018-06-19] MEDS: Vancomycin HCl 1.5 GM in Sodium Chloride 0.9% 250 ML 300 ML IVPB SCH (17:40)
[2018-06-19] MEDS: Enoxaparin Sodium 30 MG/0.3 ML SYRINGE SC SCH (20:11)
--- NOTE | 2018-06-20 02:45 | CON ---
DATE OF CONSULTATION: CONSULTING PHYSICIAN: Ignacio Junior MD REQUESTING PHYSICIAN: Dr. Gillis. REASON FOR CONSULTATION: Acute on chronic kidney disease and electrolyte abnormality. IMPRESSION: 1. Acute on chronic kidney disease. This is likely hemodynamically mediated in the context of intraoperative hypotension. 2. Hypokalemia. This is partly due to gastrointestinal loss as well as cellular shift of potassium with correction of metabolic acidosis in this patient with its resultant intracellular movement of potassium. 3.Hypervolemia . PLAN: 1. Replete potassium. Monitor the magnesium level and replete accordingly. 2. Gentle diuresis as the patient is obviously fluid overloaded. 3. Renally dose all medications for low GFR. HISTORY OF PRESENT ILLNESS: History is that of 83-year-old female patient who came in with abdominal discomfort, diagnosed with bowel obstruction, who did undergo abdominal surgery with intraoperative hypotension noted. The patient came in with a baseline creatinine of about 1.3, but over the course of hospitalization, creatinine has gone up to 1.9. As a result of these findings, decision has been taken to involve Renal in the management of this case. Family history, social history, and review of systems could not be obtained from this patient who does have a G-tube and could not communicate. LABORATORY INVESTIGATION: Significant for creatinine of 1.9 and potassium 2.7. PHYSICAL EXAMINATION: GENERAL: The patient was found to be awake, but non-interactive with a G-tube in place. VITAL SIGNS: Noted with the following vital signs; afebrile with temperature 96 , pulse 73, respiratory rate of 25, O2 saturations 92% with blood pressure 136/ 75. HEENT: Unremarkable with dry buccal mucosa. CARDIOVASCULAR SYSTEM: First and second heart sounds were heard. RESPIRATORY SYSTEM: Clear to auscultation anteriorly, somewhat diminished at the bases. DIGESTIVE SYSTEM: Revealed evidence of recent laparotomy with positive bowel sounds. EXTREMITIES: Showed 2 to 3+ bilateral lower extremity edema. SUMMARY: An 83-year-old female patient who presented with abdominal discomfort. Did undergo laparotomy, now experiencing acute on chronic kidney disease. Thank you for this consultation. We will follow with you. Job ID: [id number] MTDD
[2018-06-20 05:10] LABS: Phosphorus 1.7 mg/dL (2.3-4.7)
[2018-06-20 05:12] LABS: Anion Gap 12 mmol/L (10-20); BUN (Urea Nitrogen) 59 mg/dL (9.8-20.1); Calc. Creatinine Clearance 16 mL/min (70-130); Calcium 7.1 mg/dL (7.8-10.44); Carbon Dioxide 20 mmol/L (23-31); Chloride 112 mmol/L (98-107); Estimated GFR-MDRD 19; Glucose 155 mg/dL (83-110); Potassium 4.3 mmol/L (3.5-5.1); Sodium 140 mmol/L (136-145)
[2018-06-20 05:47] LABS: Band 28 % (5-11); Eosinophils 5 % (0-10); Hemoglobin 7.5 g/dL (12.0-16.0); Lymphocytes 8 % (21-51); MDiff Complete? YES; Mean Corpuscular HGB CONC 32.1 g/dL (32.0-36.0); Mean Corpuscular Hemoglobin 31.2 pg (27.0-31.0); Mean Corpuscular Volume 97.1 fL (78.0-98.0); Mean Platelet Volume 7.5 fL (7.4-10.4); Metamyelocyte 1 % (0-0); Monocytes 6 % (0-10); Myelocyte 1 % (0-0); Neutrophil 51 % (42-75); Nucleated RBC 2 % (0); Platelet Count 422 thou/uL (130-400); Platelet Morphology Comment Appears Increased; RBC Distribution Width 14.5 % (11.5-14.5); Red Blood Cell (RBC) Count 2.41 mill/uL (4.20-5.40); White Blood Cell (WBC) Count 10.8 thou/uL (4.8-10.8)
[2018-06-20] MEDS ORDERED: Potassium Phosphate 21 MMOL in Sodium Chloride 0.9% 250 ML 250 ML IV SCH (06:00)
[2018-06-20] MEDS: Furosemide 40 MG/4 ML VIAL SLOW IVP SCH (06:25)
[2018-06-20] MEDS: Piperacillin/Tazobactam 3.375 GM in Sodium Chloride 0.9% 100 ML IVPB SCH ×3 (06:25→18:03)
[2018-06-20] MEDS: Levothyroxine 100 MCG SDV IVP SCH (06:26)
[2018-06-20] MEDS: Insulin Regular 300 UNITS/3 ML VIAL SC PRN (06:26)
--- NOTE | 2018-06-20 09:45 | PDOC.PN ---
- Subjective Encounter Start Date: 06/20/18 Encounter Start Time: 09:43 Ms. Barnes was seen today in follow-up of bowel obstruction and hypertension. She is currently on BiPAP. She does not have any complaints. - Objective MAR Reviewed: Yes Vital Signs & Weight: Vital Signs (12 hours) Temp Pulse Resp Pulse Ox 06/20/18 08:00 100 06/20/18 07:39 82 06/20/18 07:21 96.9 F L 06/20/18 04:00 96.7 F L 06/20/18 02:21 77 23 H 100 06/20/18 00:00 97.2 F L 06/19/18 22:18 78 06/19/18 22:17 90 15 99 Weight Admit Weight 131 lb Weight 131 lb 1.6 oz Most Recent Monitor Data Heart Rate from ECG 77 NIBP 145/51 NIBP BP-Mean 82 Respiration from ECG 15 SpO2 99 I&O: 06/19/18 06/20/18 06/21/18 06:59 06:59 06:59 Intake Total 3837 2749 Output Total 2969 2835 Balance 868 -86 Result Diagrams: 06/20/18 04:27 06/20/18 04:27 Additional Labs: Accuchecks 06/20/18 06/19/18 06/19/18 05:33 23:34 16:08 POC Glucose 176 H 164 H 148 H Phys Exam - Physical Examination HEENT: PERRLA Respiratory: no wheezing, no rales, no rhonchi, clear to auscultation bilateral Cardiovascular: RRR, no significant murmur, no rub Gastrointestinal: soft, non-tender, no distention Musculoskeletal: pulses present, edema present trace pedal edema bilaterally Neurological: non-focal Dx/Plan (1) Hypertension Code(s): I10 - ESSENTIAL (PRIMARY) HYPERTENSION Status: Acute (2) Colon cancer Code(s): C18.9 - MALIGNANT NEOPLASM OF COLON, UNSPECIFIED Status: Acute (3) Bowel obstruction Code(s): K56.609 - UNSP INTESTNL OBST, UNSP TO PARTIAL VERSUS COMPLETE OBST Status: Acute (4) MRSA bacteremia Code(s): R78.81 - BACTEREMIA Status: Acute (5) Hypokalemia Code(s): E87.6 - HYPOKALEMIA Status: Acute (6) Acute kidney failure Status: Acute - Plan * HTN- blood pressure is stable * Hypophosphatemia- continue to replace * Acute kidney injury- nephrology input appreciated * Anemia- likely from chronic blood loss- will transfuse one unit * Bowel Obstruction- still awaiting return of bowel function * MRSA Bacteremia- continue Vancomycin- renal dosed, Leukocytosis is improving
[2018-06-20] MEDS: Labetalol HCl 100 MG/20 ML VIAL SLOW IVP SCH ×2 (10:00→21:24)
--- NOTE | 2018-06-20 11:01 | PRG ---
DATE OF SERVICE: 06/20/2018 SUBJECTIVE: The patient reports that she is feeling pretty good, really no significant pain. She had a little nausea last night. No vomiting. PHYSICAL EXAMINATION: VITAL SIGNS: Her temperature is 96.9, pulse 82, blood pressure is 172/70. GENERAL: She is awake. She has an NG tube in place. NG has put out 425 yesterday, draining bilious fluid. ABDOMEN: Obese, soft, nontender. Incisions healing well. Her ostomy is starting to put out some thick stool. LABORATORY DATA: White count is 10, H and H is 7.5 and 23, platelet count 422. Electrolytes look good. Creatinine is 2.39 and BUN of 59. ASSESSMENT: Postoperative ileus, resolving. PLAN: We will clamp her NG tube. Check residual, if less than a 100 in 4 hours, we will DC NG. Job ID: [id number]
[2018-06-20] MEDS: Pantoprazole 40 MG VIAL IVP SCH (11:37)
[2018-06-20] MEDS: Fluconazole In NaCl,Iso-Osm 200 MG in Premix Bag 1 BAG IVPB SCH (11:37)
--- NOTE | 2018-06-20 12:27 | PRG ---
DATE OF SERVICE: 06/20/2018 SERVICE: Pulmonary Medicine. INTERVAL HISTORY: The patient is doing okay from respiratory standpoint. She went on and off BiPAP yesterday. Otherwise, there has been no interval change to her condition. PHYSICAL EXAMINATION: VITAL SIGNS: Afebrile, pulse 86, blood pressure 145/51, respirations 15, saturation 99% on 2 L nasal cannula. GENERAL: The patient is awake and alert, in no apparent distress. LUNGS: There is excellent air entry. Crackles are present dependently. No prolonged expiratory phase or wheezing appreciated. HEART: Normal rate, regular. ABDOMEN: Soft, nontender, and nondistended. Bowel sounds are positive. MUSCULOSKELETAL: No cyanosis or clubbing. There is diffuse pitting throughout. GENITOURINARY: Briggs catheter in place. NEUROLOGIC: Grossly nonfocal. LABORATORY DATA: WBC 10.8, hemoglobin 7.5, platelets 422,000. Band count is slowly trending downward to 28. INR 1.3. Creatinine and BUN are gently up trending to 2.39 and 59, respectively. Chloride is elevated at 112 and sodium is downtrending to 140. Potassium falls within normal limits. Calcium and phosphorus are both low. Urine cultures growing Klebsiella and E species. Blood cultures growing MRSA in 2/. ASSESSMENT: 1. Acute hypoxic respiratory failure. 2. Chronic obstructive pulmonary disease, severe. 3. Ileus in the postop period. 4. Obstruction of colon secondary to adenocarcinoma, status post partial colectomy, postop day 15. 5. Acute kidney injury. 6. Anasarca. DISCUSSION AND PLAN: We will continue using BiPAP on an off. I will continue the free water, but drop our rate to 25 an hour. I will drop her dose of Lasix to once daily. If her blood pressure can tolerate it, we will escalate that dose through time. I will replace her phosphorus and calcium today. She will certainly need to remain in the IMCU while we continue focusing on mobilization efforts. Job ID: [id number]
[2018-06-20] MEDS ORDERED: ADMIXTURE FEE IVPB SCH (12:30)
[2018-06-20] MEDS ORDERED: SODIUM PHOSPHATE IVPB SCH (12:30)
[2018-06-20] MEDS ORDERED: SODIUM CHLORIDE IVPB SCH (12:30)
[2018-06-20] MEDS: Dextrose 5% in Water 1,000 ML IV SCH ×2 (12:43→12:51)
[2018-06-20] MEDS: Calcium Gluc 4.6 MEQ/10 ML (100 MG/ML) SLOW IVP SCH ×2 (12:43→18:02)
[2018-06-20] MEDS: [UNRECOGNIZED DRUG - OTHER] IV SCH (14:11)
[2018-06-20] MEDS: SODIUM ACETATE IV SCH (14:11)
[2018-06-20] MEDS: CALCIUM CHLORIDE IV SCH (14:11)
[2018-06-20] MEDS: Ketorolac Tromethamine 30 MG/ML VIAL IVP PRN (18:02)
--- NOTE | 2018-06-20 20:28 | PRG ---
DATE OF SERVICE: SUBJECTIVE: The patient noted with no new complaint. OBJECTIVE: VITAL SIGNS: Noted with the following vital signs; afebrile, blood pressure 145/51, respiratory rate of 15, O2 saturations are 99%. HEENT: Unremarkable. CARDIOVASCULAR SYSTEM: First and second heart sounds were heard. RESPIRATORY SYSTEM: Clear to auscultation. DIGESTIVE SYSTEM: Revealed a benign abdomen. EXTREMITIES: 2+ bilateral lower extremity edema. SKIN: No new gross rash. LYMPHATICS: No peripheral lymphadenopathy. LABORATORY INVESTIGATIONS: Significant for creatinine that has gone up to 2.39, BUN of 59. IMPRESSION: 1. Acute on chronic kidney disease. This is likely hemodynamically mediated acute tubular necrosis. 2. Hypervolemia with peripheral edema. PLAN: 1. We will continue current renal supportive measures. 2. We will continue to monitor the kidney function if this is proven to be acute tubular necrosis. The renal function is going to get worse before it begins to get better. 3. Renally dose all medications for low GFR. 4. Further management will be dependent on the clinical course. Job ID: [id number]
[2018-06-20] MEDS: Enoxaparin Sodium 30 MG/0.3 ML SYRINGE SC SCH (21:24)
[2018-06-21] MEDS: Piperacillin/Tazobactam 3.375 GM in Sodium Chloride 0.9% 100 ML IVPB SCH ×2 (00:43→04:55)
[2018-06-21] MEDS: Ketorolac Tromethamine 30 MG/ML VIAL IVP PRN ×2 (00:43→10:14)
[2018-06-21] MEDS: hydrALAZINE 20 MG/ML VIAL SLOW IVP PRN (04:00)
[2018-06-21] MEDS ORDERED: Furosemide 40 MG/4 ML VIAL SLOW IVP SCH (04:15)
[2018-06-21] MEDS ORDERED: Morphine 4 MG/ML VIAL SLOW IVP SCH (04:45)
[2018-06-21] MEDS: Levothyroxine 100 MCG SDV IVP SCH (04:56)
[2018-06-21 05:17] LABS: Anion Gap 16 mmol/L (10-20); BUN (Urea Nitrogen) 68 mg/dL (9.8-20.1); Calc. Creatinine Clearance 13 mL/min (70-130); Carbon Dioxide 18 mmol/L (23-31); Chloride 109 mmol/L (98-107); Estimated GFR-MDRD 15; Glucose 127 mg/dL (83-110); Potassium 3.6 mmol/L (3.5-5.1); Sodium 139 mmol/L (136-145)
[2018-06-21 05:23] LABS: Magnesium 1.6 mg/dL (1.6-2.6); Phosphorus 3.2 mg/dL (2.3-4.7)
[2018-06-21 06:04] LABS: Band 37 % (5-11); Eosinophils 8 % (0-10); Hemoglobin 9.7 g/dL (12.0-16.0); Lymphocytes 12 % (21-51); MDiff Complete? YES; Mean Corpuscular Hemoglobin 29.4 pg (27.0-31.0); Mean Corpuscular Volume 94.9 fL (78.0-98.0); Mean Platelet Volume 7.9 fL (7.4-10.4); Monocytes 10 % (0-10); Myelocyte 1 % (0-0); Neutrophil 32 % (42-75); Nucleated RBC 3 % (0); Platelet Count 374 thou/uL (130-400); Red Blood Cell (RBC) Count 3.31 mill/uL (4.20-5.40)
[2018-06-21] MEDS: Furosemide 40 MG/4 ML VIAL SLOW IVP SCH (07:58)
--- NOTE | 2018-06-21 08:14 | PRG ---
DATE OF SERVICE: 06/21/2018 SUBJECTIVE: She is actually more local than she has been. Her speech is comprehensible. OBJECTIVE: VITAL SIGNS: On exam, temperature 96.7, pulse 86, blood pressure 157/106. A 24-hour intake 2740 and output 2835. HEENT: Unremarkable. Less mucositis. NECK: No JVD. LUNGS: Good air entry. CARDIAC: S1, S2 regular. ABDOMEN: Distended. EXTREMITIES: Edematous throughout. LABORATORY DATA: White blood cell count 11, hematocrit 31.4, and platelet count 374. Sodium 139, potassium 3.6, chloride 109, CO2 of 18, BUN 68, creatinine 3.0, glucose 127. ASSESSMENT: 1. Acute hypoxic respiratory failure, requiring intermittent BiPAP. 2. Chronic obstructive pulmonary disease which is severe. 3. Postoperative ileus. 4. Adenocarcinoma of the colon. 5. Acute kidney injury. 6. Anasarca. PLAN: Her progress over the weekend is promising. However, her acute kidney injury is worrisome. We need to go ahead and adjust her antibiotics for her renal function. Keep in IMC for now, use BiPAP intermittently as needed. Job ID: [id number]
[2018-06-21] MEDS: Pantoprazole 40 MG VIAL IVP SCH (09:06)
[2018-06-21] MEDS: Heparin 5,000 UNITS/ML VIAL SC SCH ×2 (09:07→20:45)
[2018-06-21] MEDS: Fluconazole In NaCl,Iso-Osm 200 MG in Premix Bag 1 BAG IVPB SCH (09:15)
[2018-06-21] MEDS ORDERED: Sodium Chloride 0.9% 1,000 ML IV SCH (10:45)
[2018-06-21] MEDS ORDERED: Fentanyl 250 MCG/5 ML VIAL ONE (11:01)
--- NOTE | 2018-06-21 11:11 | PRG ---
DATE OF SERVICE: 06/21/2018 SUBJECTIVE: Eliana Barnes is in IMCU. She is awake and alert. NG tube is to suction. 24-hour drainage has not been recorded. There is stool in her colostomy bag. Urine output has not been recorded for the last 24 hours. LABORATORY DATA: White count 11, hemoglobin 9.7. Basic metabolic profile; sodium 139, potassium 3.6, BUN 68, creatinine 3.04, glucose 127. OBJECTIVE: LUNGS: Clear to auscultation. CARDIAC: Regular rate and rhythm. ABDOMEN: Soft, VAC changed, wound dehiscence with copious fluid out of her VAC. There is partial evisceration. EXTREMITIES: Edematous. ASSESSMENT AND PLAN: 1. Acute kidney injury due to dehydration, possibly due to dehiscence and excessive abdominal fluid drainage, possibly related to diuresis. We will cut back only diuresis, give her fluid bolus, and close her wound dehiscence today. 2. Malnutrition, edema, protein deficiency. Continue TPN. 3. Resolving ileus after bacteremia from Methicillin-resistant Staphylococcus aureus sepsis, continue intravenous antibiotics. 4. Likely, postoperatively, she may need to be on the ventilator and will probably have to transition back to the ICU. Continue vancomycin. Follow renal function. Job ID: [id number]
[2018-06-21] MEDS ORDERED: Ventilator Sedation Protocol 1 EACH FS SCH (12:30)
[2018-06-21] MEDS ORDERED: Lorazepam 2 MG/ML VIAL SLOW IVP PRN (13:56)
[2018-06-21] MEDS ORDERED: fentaNYL Citrate/PF 2,000 MCG in Sodium Chloride 0.9% 60 ML IV SCH (13:56)
[2018-06-21] MEDS ORDERED: DISCONTINUE PREVIOUS NARCOTIC PAIN MEDICATIONS AND BENZODIAZEPINES FS SCH (13:56)
[2018-06-21] MEDS ORDERED: Propofol BOLUS 1,000 MG/100 ML VIAL IV PRN (13:56)
[2018-06-21] MEDS ORDERED: Fentanyl BOLUS 250 ML IVPB PRN (13:56)
[2018-06-21] MEDS: Sodium Chloride 0.45% 1,000 ML IV SCH (14:30)
[2018-06-21] MEDS ORDERED: Albuterol Sulfate 2.5 mg/3 ml Neb NEB SCH (14:30)
--- NOTE | 2018-06-21 14:56 | OP ---
DATE OF PROCEDURE: 06/21/2018 PREOPERATIVE DIAGNOSES: Wound dehiscence, status post staged laparotomy, washout, colostomy, Kiran procedure for obstructing colon cancer, Methicillin-resistant Staphylococcus aureus bacteremia, anasarca, malnutrition, and hypoproteinemia. POSTOPERATIVE DIAGNOSES: Wound dehiscence, status post staged laparotomy, washout, colostomy, Kiran procedure for obstructing colon cancer, Methicillin-resistant Staphylococcus aureus bacteremia, anasarca, malnutrition, and hypoproteinemia. PROCEDURES PERFORMED: Abdominal washout, closure of wound dehiscence, placement of Dobhoff tube, retention used with #2 prolene interrupted fascial closure with [id number] #1 PDS. ANESTHESIA: General. DESCRIPTION OF PROCEDURE: The patient was taken to the operating room under general anesthesia. Abdominal dressings were removed. Skin staple was removed in the midline, where it partially approximated the skin. Wound dehiscence was evidence from the top incisions to lower. PDS suture was removed. Then, pulled through the fascia. Abdominal cavity irrigated, irrigant evacuated. There was some bleeding from the liver edge, controlled with Surgicel. A Dobhoff tube was placed. I could palpate this in the distal stomach, but could not guide it as desired. Thus, it was left in place for later placement, pending radiological imaging. The fascia was approximated interrupted [id number] suture of #1 PDS after interrupted #2 prolene. Retention sutures applied. Once the fascia was approximated, thus skin and subcutaneous tissues irrigated. Midline skin about the umbilicus was approximated with juni and the skin and subcutaneous tissue left open otherwise, above and below. Retention sutures tightened over retention bridges. Good hemostasis noted. Wound Care Team arrived to place a wound VAC. Job ID: [id number]
[2018-06-21 15:05] LABS: Actual Bicarbonate (HCO3a) 20.6 mEq/L (22-28); Base Excess (BEa) -9.1 mEq/L (-2.0 to +3.0); Calcium, Ionized 1.29 mmol/L (1.12-1.30); Carboxyhemoglobin (COHb) 1.1 gm% (0.0-3.0); Hemoglobin (Hb) 11.5 g/dL (12.0-16.0); O2 Tension (PaO2) 84.6 mmHg (> 60.0); Potassium - ABG Lab 3.43 mmol/L (3.70-5.30)
[2018-06-21 15:11] LABS: CO2 Tension 63.8 mmHg (35.0-45.0); Puncture Site RRA; pH, Arterial 7.13 (7.35-7.45)
[2018-06-21] MEDS: Dextrose 5% in Water 1,000 ML IV SCH (15:16)
[2018-06-21] MEDS: Albumin 25% 25 GM/100 ML BOT IVPB SCH ×3 (15:16→23:14)
[2018-06-21] MEDS ORDERED: Calcium Chloride 1 GM/10 ML Abboject SYRINGE ONE (15:19)
[2018-06-21] MEDS ORDERED: ePHEDrine/0.9% NaCl/PF SYRINGE 50 mg/10 ml ONE (15:19)
[2018-06-21] MEDS ORDERED: PHENYLEPHRINE-NS 100 MCG/ML 10 ML SYRINGE ONE (15:19)
[2018-06-21] MEDS ORDERED: Rocuronium Bromide 10 MG/ML (10ML VIAL) ONE ×2 (15:19)
[2018-06-21] MEDS: Propofol 1,000 MG/100 ML VIAL IV PRN (15:43)
--- NOTE | 2018-06-21 15:48 | RAD ---
PORTABLE SUPINE KUB: 06/21/2018 COMPARISON: 06/18/2018 FINDINGS: Supine imaging limits assessment for free intraperitoneal air and bowel obstruction. Dorsal column s timulators overly the mid thoracic spine. The nasogastric tube extends into the left upper quadrant with SidePort in the expected location of the gastroesophageal junction. Dobhoff feeding tube curls multiple times over the left upper quadrant, likely curling multiple times within the stomach. Posto perative hardware overlying the lower lumbar spine again noted. There are cutaneous juni noted ov erlying the midline lower abdomen. There is a paucity of bowel gas present. IMPRESSION: 1. Lines and tubes as detailed above. 2. A Dobhoff feeding tube curls multiple times in the left upper quadrant, likely within the gastric body. POS: [facility]
--- NOTE | 2018-06-21 15:50 | RAD ---
PORTABLE FRONTAL CHEST RADIOGRAPH: 06/21/2018 2:32 p.m. HISTORY: Intubated patient. COMPARISON: 06/18/2018 FINDINGS: There has been placement of an endotracheal tube, which extends into the region of the proximal right mainstem bronchus. There is a right PICC, distal tip overlying the region of the cavoatrial junctio n. Nasogastric tube and Dobhoff feeding tube extend into the left upper quadrant. Supine imaging li mits assessment for pneumothorax and pleural fluid. No focal consolidation. IMPRESSION: 1. Lines and tubes as detailed above. 2. The endotracheal tube appears to extend into the region of the proximal right mainstem bronchus. POS: [facility]
--- NOTE | 2018-06-21 15:52 | RAD ---
PORTABLE SUPINE FRONTAL CHEST RADIOGRAPH: 06/21/2018 2:39 p.m. HISTORY: Endotracheal tube placement. COMPARISON: 06/21/2018 at 2:32 p.m. FINDINGS: When compared to the prior study performed 7 minutes prior, the endotracheal tube has been retracted since the prior exam. It is now in the region of the distal trachea, probably 1.5 cm proximal to the radha. Stable right-sided PICC. Stable Dobhoff feeding tube and nasogastric tube. No focal conso lidation. Supine imaging limits assessment for pleural fluid and pneumothorax. Hazy increased densi ty overlies the right hemithorax, which may signify right pleural fluid. IMPRESSION: Lines and tubes as detailed above. POS: [facility]
[2018-06-21] MEDS: [UNRECOGNIZED DRUG - OTHER] IV SCH (16:17)
[2018-06-21] MEDS: CALCIUM CHLORIDE IV SCH (16:17)
[2018-06-21] MEDS: SODIUM ACETATE IV SCH (16:17)
--- NOTE | 2018-06-21 16:51 | PDOC.PN ---
- Subjective Encounter Start Date: 06/21/18 Encounter Start Time: 08:00 Ms. Barnes was seen today in follow-up of blood pressure control. She does not have any complaints this morning. She denies feeling short of breath. - Objective MAR Reviewed: Yes Vital Signs & Weight: Vital Signs (12 hours) Temp Pulse Pulse Pulse Resp BP BP 06/21/18 15:00 97.6 F 74 128/40 L 06/21/18 14:35 06/21/18 14:30 14 06/21/18 09:40 101 H 101 H 155/74 H 06/21/18 09:06 85 155/74 H 06/21/18 08:00 06/21/18 07:30 85 24 H 06/21/18 07:18 96.7 F L BP Pulse Ox Pulse Ox Pulse Ox Pulse Ox 06/21/18 15:00 06/21/18 14:35 100 06/21/18 14:30 06/21/18 09:40 181/62 H 86 L 97 90 L 06/21/18 09:06 06/21/18 08:00 100 06/21/18 07:30 96 06/21/18 07:18 Weight Admit Weight 131 lb 1.6 oz Weight 131 lb 1.6 oz Most Recent Monitor Data Heart Rate from ECG 69 NIBP 108/42 NIBP BP-Mean 64 Respiration from ECG 14 SpO2 97 I&O: 06/20/18 06/21/18 06/22/18 06:59 06:59 06:59 Intake Total 2749 350 2160 Output Total 2835 1500 1105 Balance -86 -1150 1055 Result Diagrams: 06/21/18 04:49 06/21/18 04:49 Additional Labs: Accuchecks 06/21/18 06/21/18 06/21/18 16:15 10:30 05:31 POC Glucose 144 H 131 H 132 H 06/20/18 06/20/18 21:07 16:44 POC Glucose 121 H 129 H Phys Exam - Physical Examination HEENT: PERRLA Respiratory: no wheezing, no rales, no rhonchi, clear to auscultation bilateral Cardiovascular: RRR, no significant murmur, no rub Gastrointestinal: soft, positive bowel sounds Musculoskeletal: pulses present, edema present 2 + pitting edema in both upper and lower extremities Dx/Plan (1) Hypertension Code(s): I10 - ESSENTIAL (PRIMARY) HYPERTENSION Status: Acute (2) Colon cancer Code(s): C18.9 - MALIGNANT NEOPLASM OF COLON, UNSPECIFIED Status: Acute (3) Bowel obstruction Code(s): K56.609 - UNSP INTESTNL OBST, UNSP TO PARTIAL VERSUS COMPLETE OBST Status: Acute (4) MRSA bacteremia Code(s): R78.81 - BACTEREMIA Status: Acute (5) Hypokalemia Code(s): E87.6 - HYPOKALEMIA Status: Acute (6) Acute kidney failure Status: Acute - Plan * HTN- blood pressure has been stable * Acute Kidney injury- multi-factorial- hemodynamically mediated, and she was found to have a wound dehiscence * Wound dehiscence- this has been surgically repaired * Bowel obstruction- she remain on bowel rest- * TPN for nutritional support.
[2018-06-21] MEDS: Piperacillin/Tazobactam 2.25 GM in Sodium Chloride 0.9% 100 ML IVPB SCH (17:19)
[2018-06-21 17:53] LABS: #Eosinphils 0.5 thou/uL (0.0-0.7); #Lymphocytes 1.2 thou/uL (1.20-3.40); #Monocytes 0.8 thou/uL (0.11-0.59); #Neutrophils 6.3 thou/uL (1.40-6.50); %Basophils 0.1 % (0.0-1.0); %Eosinophils 5.4 % (0.0-10.0); %Monocytes 9.2 % (0.0-10.0); %Neutrophils 71.2 % (42.0-75.0); Hemoglobin 10.3 g/dL (12.0-16.0); Mean Corpuscular HGB CONC 31.7 g/dL (32.0-36.0); Mean Corpuscular Hemoglobin 33.8 pg (27.0-31.0); Mean Platelet Volume 7.5 fL (7.4-10.4); Platelet Count 214 thou/uL (130-400); RBC Distribution Width 14.3 % (11.5-14.5); Red Blood Cell (RBC) Count 3.06 mill/uL (4.20-5.40); White Blood Cell (WBC) Count 8.9 thou/uL (4.8-10.8)
[2018-06-21] MEDS ORDERED: Vancomycin HCl 1 GM in Premix Bag 1 BAG IVPB SCH (18:00)
[2018-06-21 18:08] LABS: Vancomycin, Random 25.9 ug/mL (See Comment)
--- NOTE | 2018-06-21 18:25 | PRG ---
DATE OF SERVICE: 06/21/2018 SUBJECTIVE: The patient was seen and examined, now intubated in ICU with earlier events noted. However, the patient's wound dehisced. The patient with the following vital signs. OBJECTIVE: VITAL SIGNS: Blood pressure 108/42, respiratory rate of 14, and pulse 69. HEENT: Unremarkable, except endotracheal tube in place. CARDIOVASCULAR SYSTEM: First and second heart sounds were heard. RESPIRATORY SYSTEM: Revealed ventilator sounds. DIGESTIVE SYSTEM: Revealed tension sutures. EXTREMITIES: Showed 3 to 4+ bilateral lower extremity edema. GENERAL: The patient is fluid overloaded with anasarca feature. LABORATORY INVESTIGATION: Showed a hemoglobin of 9.7. Chemistry showed a creatinine of 3.04, BUN of 68, and bicarb of 18. IMPRESSION: 1. Hemodynamically-mediated acute tubular necrosis, which is progressively getting worse, at the moment tending towards anuric acute tubular necrosis. 2. Anasarca in the context of problem #1. 3. Metabolic acidosis. 4. Cardiopulmonary failure in the context of dehisced laparotomy, status post retention sutures. PLAN: 1. If the patient's renal function continues to deteriorate at this space within the next 24 hours, the patient likely to require dialysis with ultrafiltration as tolerated by hemodynamics. 2. Renally dose all medications and avoid potential nephrotoxic agents. 3. Further management will be dependent on the clinical course. Condition of patient at this time of dictation is guarded. Job ID: [id number]
[2018-06-21 19:01] LABS: Chloride 109 mmol/L (98-107); Potassium 3.6 mmol/L (3.5-5.1); Sodium 138 mmol/L (136-145)
[2018-06-21 19:02] LABS: Calcium 8.3 mg/dL (7.8-10.44); Glucose 132 mg/dL (83-110)
[2018-06-21 19:03] LABS: Anion Gap 15 mmol/L (10-20); Carbon Dioxide 18 mmol/L (23-31)
[2018-06-21 19:05] LABS: Calc. Creatinine Clearance 12 mL/min (70-130); Estimated GFR-MDRD 14
[2018-06-21 19:06] LABS: BUN (Urea Nitrogen) 72 mg/dL (9.8-20.1)
--- NOTE | 2018-06-21 22:20 | EKG ---
Test Reason : Blood Pressure : / mmHG Vent. Rate : 088 BPM Atrial Rate : 091 BPM P-R Int : 000 ms QRS Dur : 078 ms QT Int : 412 ms P-R-T Axes : 000 006 -08 degrees QTc Int : 498 ms Atrial fibrillation Nonspecific T wave abnormality Prolonged QT Abnormal ECG No previous ECGs available Confirmed by Syl CORNELL ([id number]) on 06/21/2018 10:20:04 PM Referred By: SYDNEE Confirmed By:Syl CORNELL
[2018-06-22] MEDS: Sodium Chloride 0.45% 1,000 ML IV SCH ×2 (04:05→14:09)
[2018-06-22 05:20] LABS: ALT (SGPT) 28 U/L (8-55); AST (SGOT) 57 U/L (5-34); Albumin 2.8 g/dL (3.4-4.8); Alkaline Phosphatase 54 U/L (40-150); Anion Gap 14 mmol/L (10-20); BUN (Urea Nitrogen) 73 mg/dL (9.8-20.1); Bilirubin, Total 0.4 mg/dL (0.2-1.2); Calc. Creatinine Clearance 11 mL/min (70-130); Calcium 8.4 mg/dL (7.8-10.44); Carbon Dioxide 18 mmol/L (23-31); Chloride 107 mmol/L (98-107); Estimated GFR-MDRD 13; Globulin 2.2 g/dL (2.4-3.5); Glucose 123 mg/dL (83-110); Magnesium 1.9 mg/dL (1.6-2.6); Phosphorus 3.5 mg/dL (2.3-4.7); Potassium 3.2 mmol/L (3.5-5.1); Sodium 136 mmol/L (136-145)
[2018-06-22] MEDS: Piperacillin/Tazobactam 2.25 GM in Sodium Chloride 0.9% 100 ML IVPB SCH ×2 (05:31→17:49)
[2018-06-22] MEDS: Albumin 25% 25 GM/100 ML BOT IVPB SCH ×2 (05:31→14:03)
[2018-06-22 05:35] LABS: Band 30 % (5-11); Eosinophils 8 % (0-10); Hemoglobin 8.5 g/dL (12.0-16.0); Lymphocytes 13 % (21-51); MDiff Complete? YES; Mean Corpuscular HGB CONC 33.1 g/dL (32.0-36.0); Mean Corpuscular Hemoglobin 31.8 pg (27.0-31.0); Mean Corpuscular Volume 96.1 fL (78.0-98.0); Mean Platelet Volume 7.7 fL (7.4-10.4); Metamyelocyte 2 % (0-0); Monocytes 7 % (0-10); Myelocyte 4 % (0-0); Neutrophil 35 % (42-75); Nucleated RBC 3 % (0); Platelet Count 200 thou/uL (130-400); Reactive Lymphocytes 1 % (0-10); Red Blood Cell (RBC) Count 2.67 mill/uL (4.20-5.40); White Blood Cell (WBC) Count 9.5 thou/uL (4.8-10.8)
[2018-06-22] MEDS: Propofol 1,000 MG/100 ML VIAL IV PRN ×4 (06:51→21:55)
[2018-06-22 06:52] LABS: Actual Bicarbonate (HCO3a) 19.1 mEq/L (22-28); Base Excess (BEa) -8.2 mEq/L (-2.0 to +3.0); CO2 Tension 47.9 mmHg (35.0-45.0); Carboxyhemoglobin (COHb) 0.8 gm% (0.0-3.0); Hemoglobin (Hb) 8.8 g/dL (12.0-16.0); O2 Tension (PaO2) 103.4 mmHg (> 60.0); Potassium - ABG Lab 3.21 mmol/L (3.70-5.30)
[2018-06-22 06:55] LABS: Puncture Site LRA; pH, Arterial 7.22 (7.35-7.45)
[2018-06-22 06:56] LABS: ALV-art Gradient 121.925 (0-20)
[2018-06-22] MEDS: Morphine 2 MG/ML SYRINGE SLOW IVP PRN (07:57)
--- NOTE | 2018-06-22 08:22 | RAD ---
KUB: INDICATIONS: Dobhoff tube placement. COMPARISON: 06/21/2018 FINDINGS: There is a gastric catheter Dobhoff feeding tube projecting in the region of the stomach. The feedin g tube projects in the region of the fundus. The gastric catheter projects in the region of the body . There is a dorsal column stimulator in place. There is instrumentation involving the lower lumbar spine that appears similar to the prior exam. The bowel gas pattern is nonspecific, without evidence of obstruction. There is suspicion of a small right pleural effusion. IMPRESSION: 1. Feeding tubes as above. 2. Small right pleural effusion. POS: [facility]
[2018-06-22] MEDS ORDERED: Sodium Chloride 0.9% 1,000 ML IV SCH (08:45)
[2018-06-22] MEDS ORDERED: Vancomycin HCl 1 GM in Premix Bag 1 BAG IVPB SCH (09:00)
--- NOTE | 2018-06-22 09:03 | PRG ---
DATE OF SERVICE: 06/22/2018 SUBJECTIVE: Ms. Barnes is in the ICU, on the ventilator. She underwent closure of wound dehiscence yesterday, fascial bridges were used. She opens her eyes to voice this morning. OBJECTIVE: VITAL SIGNS: Heart rate is 72, blood pressure 118/64. Urine output 300 mL postoperatively. Gastric drainage 350 mL per NG tube. LUNGS: Clear to auscultation. CARDIAC: Regular rate and rhythm without murmur or gallop. ABDOMEN: Soft. Bowel sounds occasionally. Colostomy is healthy. EXTREMITIES: Edematous. DIAGNOSTIC DATA: X-rays of abdomen this morning reveal nasogastric tube to be in good position. Dobhoff tube remains coiled in the stomach with the wire in place. LABORATORY DATA: White count 9.5, hemoglobin 8.5. Basic metabolic profile; sodium 136, potassium 3.2, BUN 73, creatinine 3.44, GFR 13, magnesium 1.9, phosphorus 3.5. ASSESSMENT AND PLAN: 1. Postoperative wound dehiscence, status post closure. 2. Respiratory failure, continue on ventilator, weaning per Dr. Tsai, Pulmonary. CO2 retention yesterday, ventilatory rate increased. 3. Acute kidney injury. Continue hydration. 4. Low potassium. Replace. 5. Malnutrition, continue TPN. Begin tube feedings per NG tube. Plan is that if she is able to be extubated, to leave the wire in the Dobhoff until the NG tube is removed, initial plan, but at this point, we will plan removal of the wire so the tube can migrate post pyloric as I do not expect her to be extubated immediately. Job ID: [id number]
--- NOTE | 2018-06-22 09:10 | PRG ---
DATE OF SERVICE: 06/22/2018 TIME SPENT: 35 minutes of critical care time. SUBJECTIVE: The patient remains intubated, on mechanical ventilation. OBJECTIVE: VITAL SIGNS: Temperature 98.4, pulse O2 saturation 97%. A 24-hour intake 4498, output 2077. HEENT: Periorbital edema present. NECK: No JVD. LUNGS: Coarse breath sounds bilaterally with expiratory wheezing. CARDIAC: S1 and S2, regular. ABDOMEN: Distended. Retention sutures noted. Colostomy noted. EXTREMITIES: 4+ edema throughout. LABORATORY DATA: Sodium 136, potassium 3.2, chloride 107, CO2 of 18, BUN 73, creatinine 3.4, and glucose 123. PH 7.22, pCO2 of 48, PO2 of 103 on SIMV, rate 14, tidal volume 350, PEEP 5, pressure support 10, and FiO2 of 40%. White blood cell count 9.5, hematocrit 25.7, and platelet count 200. ASSESSMENT: 1. Chronic obstructive pulmonary disease with exacerbation. 2. Acute respiratory failure, requiring mechanical ventilation. 3. Status post wound dehiscence, subsequent revision in the OR. 4. Renal insufficiency secondary to critical illness. 5. Metastatic colon cancer. PLAN: 1. She is not weanable at this time. We have increased respiratory rate on the vent, but I do not think we can go up much on her tidal volume. 2. Continue TPN. 3. Continue fluconazole, vancomycin. 4. Adjust all medications for degree of renal impairment. Job ID: [id number]
--- NOTE | 2018-06-22 09:36 | RAD ---
SINGLE VIEW OF THE ABDOMEN: History: Dobbhoff placement. Comparison: 06-22-18 at 3:36 a.m. FINDINGS: Single view of the abdomen shows a nonspecific, nonobstructed bowel gas pattern. An NG tube is seen i n the stomach. Dobbhoff tube is coiled multiple times within the stomach. The patient is status post- surgery of the lower lumbosacral spine. Dorsal column stimulator is seen. Surgical juni are seen i n the left lower quadrant of the abdomen. The patient also appears to have an ostomy in the left abdo azeem wall. IMPRESSION: NG tube and Dobbhoff tube located in the stomach. POS: [facility]
[2018-06-22] MEDS: Heparin 5,000 UNITS/ML VIAL SC SCH ×2 (09:47→21:53)
[2018-06-22] MEDS: Pantoprazole 40 MG VIAL IVP SCH (09:48)
[2018-06-22] MEDS: Fluconazole In NaCl,Iso-Osm 200 MG in Premix Bag 1 BAG IVPB SCH (09:48)
--- NOTE | 2018-06-22 13:36 | PDOC.PN ---
- Subjective Encounter Start Date: 06/22/18 Encounter Start Time: 09:45 Ms. Barnes was seen today in follow-up of HTN management. She is currently intubated, but awake and alert. She will follow commands - Objective MAR Reviewed: Yes Vital Signs & Weight: Vital Signs (12 hours) Temp Pulse Resp BP Pulse Ox 06/22/18 12:57 75 114/41 L 06/22/18 10:34 77 116/42 L 06/22/18 10:15 66 118/64 06/22/18 06:51 72 118/64 06/22/18 06:00 19 06/22/18 04:00 98.4 F 30 H 96 06/22/18 02:02 73 105/39 L 06/22/18 02:00 28 H Weight Admit Weight 131 lb 1.6 oz Weight 131 lb 1.6 oz Most Recent Monitor Data Heart Rate from ECG 70 NIBP 105/34 NIBP BP-Mean 57 Respiration from ECG 23 SpO2 97 I&O: 06/21/18 06/22/18 06/23/18 06:59 06:59 06:59 Intake Total 350 4498.1 Output Total 1500 2077 Balance -1150 2421.1 Result Diagrams: 06/22/18 04:20 06/22/18 04:20 Additional Labs: Accuchecks 06/22/18 06/21/18 06/21/18 10:22 22:24 16:15 POC Glucose 134 H 149 H 144 H Phys Exam - Physical Examination HEENT: PERRLA Respiratory: no wheezing, no rales, no rhonchi, clear to auscultation bilateral Cardiovascular: RRR, no significant murmur, no rub Gastrointestinal: soft, non-tender, no distention, positive bowel sounds Musculoskeletal: pulses present, edema present + upper and lower extremity edema Dx/Plan (1) Hypertension Code(s): I10 - ESSENTIAL (PRIMARY) HYPERTENSION Status: Acute (2) Colon cancer Code(s): C18.9 - MALIGNANT NEOPLASM OF COLON, UNSPECIFIED Status: Acute (3) Bowel obstruction Code(s): K56.609 - UNSP INTESTNL OBST, UNSP TO PARTIAL VERSUS COMPLETE OBST Status: Acute (4) MRSA bacteremia Code(s): R78.81 - BACTEREMIA Status: Acute (5) Hypokalemia Code(s): E87.6 - HYPOKALEMIA Status: Acute (6) Acute kidney failure Status: Acute - Plan * HTN- blood pressure is stable * Wound Dehiscence- She is s/p wound closure, and wound vac is in place * MRSA- Bacteremia- continue Vancomycin IV * Acute Kidney injury- renal function is a bit worse- Nephrology managing * [facility]
[2018-06-22] MEDS: methylPREDNISolone Sod Succ 40 MG VIAL IVP SCH ×2 (13:50→17:48)
[2018-06-22] MEDS: Metoclopramide HCl 10 MG/2 ML VIAL IVP SCH ×2 (13:51→21:54)
[2018-06-22] MEDS: Dextrose 5% in Water 1,000 ML IV SCH (13:51)
[2018-06-22] MEDS: CALCIUM CHLORIDE IV SCH (14:10)
[2018-06-22] MEDS: [UNRECOGNIZED DRUG - OTHER] IV SCH (14:10)
[2018-06-22] MEDS: SODIUM ACETATE IV SCH (14:10)
[2018-06-22] MEDS ORDERED: Sterile Water 10 ML ONE (17:38)
[2018-06-22 18:37] LABS: Vancomycin, Random 32.9 ug/mL (See Comment)
[2018-06-22] MEDS: Insulin Regular 300 UNITS/3 ML VIAL SC PRN (22:08)
--- NOTE | 2018-06-22 23:03 | PRG ---
DATE OF SERVICE: SUBJECTIVE: The patient was seen and examined, still intubated on life support. OBJECTIVE: VITAL SIGNS: Noted with the following vital signs; blood pressure of 138/54 to 161/50. HEENT: Remarkable for endotracheal tube in place. CARDIOVASCULAR: First and second heart sounds were heard. RESPIRATORY: Revealed ventilator sounds. DIGESTIVE: Revealed tension sutures and recent laparotomy. EXTREMITIES: Showed 3 to 4+ bilateral lower extremity edema. LABORATORY INVESTIGATION: Showed hemoglobin of 8.5. Chemistry, creatinine of 3.44, BUN of 73, and potassium 3.2. IMPRESSION: 1. Hemodynamically-mediated acute tubular necrosis with no sign of much improvement. 2. Anasarca/hypervolemia. 3. Cardiopulmonary failure, on life support. 4. Metastatic colonic cancer status post resection. PLAN: 1. Discontinue IV fluids as the patient is obviously fluid overloaded. 2. As tolerated by hemodynamics, we will begin to attempt medical diuresis, however, if the patient fails to respond to medical diuresis, this clearly becomes an indication for renal replacement therapy with ultrafiltration as tolerated by hemodynamics. 3. Renally dose all medications for low GFR. 4. Avoid potentially nephrotoxic agents. Job ID: [id number]
[2018-06-23] MEDS: methylPREDNISolone Sod Succ 40 MG VIAL IVP SCH ×5 (00:22→23:43)
[2018-06-23] MEDS: Morphine 2 MG/ML SYRINGE SLOW IVP PRN ×2 (02:37→21:02)
[2018-06-23 04:31] LABS: ALT (SGPT) 23 U/L (8-55); AST (SGOT) 36 U/L (5-34); Albumin 2.9 g/dL (3.4-4.8); Alkaline Phosphatase 80 U/L (40-150); Anion Gap 16 mmol/L (10-20); BUN (Urea Nitrogen) 90 mg/dL (9.8-20.1); Bilirubin, Total 0.5 mg/dL (0.2-1.2); Calc. Creatinine Clearance 10 mL/min (70-130); Calcium 8.7 mg/dL (7.8-10.44); Carbon Dioxide 16 mmol/L (23-31); Chloride 103 mmol/L (98-107); Estimated GFR-MDRD 10; Globulin 2.5 g/dL (2.4-3.5); Glucose 166 mg/dL (83-110); Magnesium 1.9 mg/dL (1.6-2.6); Phosphorus 3.2 mg/dL (2.3-4.7); Potassium 3.8 mmol/L (3.5-5.1); Protein, Total 5.4 g/dL (6.0-8.3); Sodium 131 mmol/L (136-145)
[2018-06-23 04:53] LABS: Band 41 % (5-11); Hemoglobin 8.6 g/dL (12.0-16.0); Lymphocytes 11 % (21-51); MDiff Complete? YES; Mean Corpuscular HGB CONC 32.7 g/dL (32.0-36.0); Mean Corpuscular Hemoglobin 31.1 pg (27.0-31.0); Mean Platelet Volume 7.7 fL (7.4-10.4); Monocytes 2 % (0-10); Myelocyte 2 % (0-0); Neutrophil 44 % (42-75); Platelet Count 187 thou/uL (130-400); RBC Distribution Width 13.9 % (11.5-14.5); Red Blood Cell (RBC) Count 2.76 mill/uL (4.20-5.40)
[2018-06-23] MEDS: Piperacillin/Tazobactam 2.25 GM in Sodium Chloride 0.9% 100 ML IVPB SCH ×2 (05:53→17:04)
[2018-06-23] MEDS: Metoclopramide HCl 10 MG/2 ML VIAL IVP SCH ×3 (05:54→21:02)
[2018-06-23] MEDS: Sodium Chloride 0.45% 1,000 ML IV SCH (06:05)
[2018-06-23] MEDS: Levothyroxine 100 MCG SDV IVP SCH (06:25)
[2018-06-23] MEDS: Propofol 1,000 MG/100 ML VIAL IV PRN ×3 (07:41→21:02)
[2018-06-23] MEDS ORDERED: Sodium Chloride 0.45% 1,000 ML IV SCH (07:46)
--- NOTE | 2018-06-23 08:27 | RAD ---
PORTABLE CHEST 1 VIEW: Date: 06/23/18 Time: 0456 hours HISTORY: Respiratory failure. FINDINGS/IMPRESSION: Comparison made with exam of 06/21/18. Line and tubes are unchanged in position. There is pulmonary vascular congestion with bilateral pleur al effusions and bibasilar infiltrates/atelectatic changes. POS: [facility]
--- NOTE | 2018-06-23 08:29 | RAD ---
ABDOMEN 1 VIEW: Date: 06/23/18 HISTORY: Dobbhoff tube placement. FINDINGS/IMPRESSION: Comparison made with exam from previous day. The nasogastric tube tip is in the distal stomach. The feeding tube is coiled in the gastric fundus. Bowel gas pattern is unremarkable. Postop changes of lower lumbar spine surgery and dorsal column sti mulator device are again seen. There is suggestion of an ostomy in the left lower quadrant. POS: [facility]
--- NOTE | 2018-06-23 08:41 | PRG ---
DATE OF SERVICE: 06/23/2018 SUBJECTIVE: Ms. Barnes remains on the ventilator. She is oliguric despite IV fluid boluses and increased IV fluid rate along with TPN. Her urine output for the last 24 hours has been 410 mL decreased from 602 yesterday. She remains edematous. She is sedated on the ventilator. OBJECTIVE: VITAL SIGNS: Temperature 98.6, blood pressure 142/43, heart rate 63. LUNGS: Clear to auscultation. CARDIAC: Regular rate and rhythm without murmur or gallop. ABDOMEN: Soft. Wound VAC in place. Colostomy healthy with stool in the colostomy bag. As noted above, the patient is edematous in all extremities and torso. DIAGNOSTIC DATA: Tube feedings; NG tube 20 per hour. Dobbhoff tube in place, but x-rays of abdomen revealed NG tube to be in proper position in the stomach. Dobbhoff tube is curled in the stomach. Sodium 131, potassium 3.8, chloride 103, BUN 90, creatinine 4.07, GFR 10 deteriorated from yesterday, and glucose 166. CEA level was 9.74. Chest x-ray reveals congestion, probable effusions. ASSESSMENT AND PLAN: 1. Obstructing T4 colon cancer, status post open abdomen studies, laparotomies, abdominal washout, colostomy. Two days status post closure of wound dehiscence. 2. Recent history of bacteremia, line sepsis, lines removed, PICC line placed. 3. Acute renal failure. She has oliguric renal failure and I have discussed with the family this morning, recommendations for placement of hemodialysis catheter and a triple-lumen catheter in the operating room under sedation. We will hold her tube feedings for now. 4. Advanced colon cancer of T4 with elevated CEA with colostomy. 5. Advanced age. 6. Anasarca. 7. Malnutrition. 8. Hypoproteinemia. Overall prognosis is poor. We will have further discussions with the family, but we will plan placement of a hemodialysis catheter and a triple-lumen catheter and plan removal of the PICC line today probably. Job ID: [id number]
--- NOTE | 2018-06-23 09:01 | PRG ---
DATE OF SERVICE: 06/23/2018 TIME: 35 minutes critical time. SUBJECTIVE: The patient remains intubated on mechanical ventilation. She has made no improvement overnight. She is scheduled to go down for dialysis catheter and wound revision today. OBJECTIVE: VITAL SIGNS: Temperature is 98.6, pulse 65, blood pressure 166/140. A 24-hour intake 3599, output 1485. HEENT: Unremarkable. NECK: No JVD. LUNGS: Coarse breath sounds. CARDIAC: S1, S2. Regular. ABDOMEN: Distended. Hypoactive bowel sounds. Wound looks bloody. Colostomy noted. EXTREMITIES: Edematous throughout. LABORATORY DATA: White blood cell count 14, hematocrit 26.2, and platelet count 187. Sodium 131, potassium 3.8, chloride 103, CO2 of 16, BUN 19, creatinine 4.1, and glucose 166. Her chest x-ray showed pulmonary vascular congestion bilaterally. ET tube in good position. ASSESSMENT: 1. The patient is experiencing persistent respiratory failure from both chronic obstructive pulmonary disease, fluid overload, and postoperative weakness. Given her age, underlying comorbidities, I think her chances of surviving current illness are very poor. 2. Status post laparotomy for colon cancer, which is considered metastatic. 3. Status post wound dehiscence and subsequent return to OR. 4. Renal insufficiency. PLAN: She is having a dialysis catheter placed today. She will continue mechanical ventilation on current settings. I will recheck an ABG tomorrow. Again, I think her long- term prognosis is poor, we may need to sit down with the family and ask what their wishes are. Job ID: [id number]
[2018-06-23] MEDS: Fluconazole In NaCl,Iso-Osm 200 MG in Premix Bag 1 BAG IVPB SCH (09:46)
[2018-06-23] MEDS: Heparin 5,000 UNITS/ML VIAL SC SCH (09:47)
[2018-06-23] MEDS: Pantoprazole 40 MG VIAL IVP SCH (09:47)
[2018-06-23] MEDS ORDERED: Rocuronium Bromide 10 MG/ML (10ML VIAL) ONE (10:41)
[2018-06-23] MEDS ORDERED: Sodium Chloride 0.9% 30 ML ONE (11:30)
[2018-06-23] MEDS ORDERED: Bupivacaine HCl 0.5%/Epinephrine 1:200,000/PF 30 ml Vial ONE (11:30)
[2018-06-23] MEDS ORDERED: Heparin 10,000 UNITS/1 ML VIAL ONE (11:30)
[2018-06-23] MEDS ORDERED: Lidocaine 2% PF 5 ML VIAL ONE (11:30)
[2018-06-23] MEDS ORDERED: Sodium Chloride 0.9% 10 ML ONE (11:32)
[2018-06-23] MEDS ORDERED: KETAMINE 100 MG/ML (5ML VIAL) ONE (11:34)
--- NOTE | 2018-06-23 12:37 | PDOC.PN ---
- Subjective Encounter Start Date: 06/23/18 Encounter Start Time: 12:36 Patient seen and examined. - Objective Vital Signs & Weight: Vital Signs (12 hours) Temp Pulse Resp BP Pulse Ox 06/23/18 12:00 98.2 F 18 06/23/18 10:22 60 117/40 L 06/23/18 10:21 60 18 93 L 06/23/18 10:12 57 L 117/40 L 06/23/18 10:00 18 06/23/18 08:00 20 94 L 06/23/18 07:00 98.6 F 06/23/18 06:54 63 142/43 H 06/23/18 06:52 65 24 H 94 L 06/23/18 06:00 17 06/23/18 04:00 98.8 F 21 H 06/23/18 02:06 70 165/79 H 06/23/18 02:00 20 Weight Admit Weight 131 lb 1.6 oz Weight 131 lb 1.6 oz Most Recent Monitor Data Heart Rate from ECG 55 NIBP 130/48 NIBP BP-Mean 75 Respiration from ECG 0 SpO2 94 I&O: 06/22/18 06/23/18 06/24/18 06:59 06:59 06:59 Intake Total 4498.1 3599.4 130 Output Total 2077 1485 176 Balance 2421.1 2114.4 -46 Result Diagrams: 06/23/18 04:00 06/23/18 04:00 Additional Labs: Accuchecks 06/23/18 06/22/18 06/22/18 09:56 22:03 17:33 POC Glucose 188 H 165 H 137 H Phys Exam - Physical Examination HEENT: PERRLA, sclera anicteric +intubated Neck: no nodes, no JVD, supple no respiratory distress coarse beath sounds tachycadia 2/6 MIRA Gastrointestinal: soft, non-tender, positive bowel sounds Musculoskeletal: pulses present, edema present Dx/Plan (1) Acute kidney failure Status: Acute (2) Hypertension Code(s): I10 - ESSENTIAL (PRIMARY) HYPERTENSION Status: Acute (3) Small bowel obstruction Code(s): K56.609 - UNSP INTESTNL OBST, UNSP TO PARTIAL VERSUS COMPLETE OBST Status: Acute - Plan * continue current plan of care for blood pressure * renal also following, defer dialysis to renal * no changes in plan of care from a medical perspective * will follow from a distance
[2018-06-23] MEDS: Dextrose 5% in Water 1,000 ML IV SCH (14:16)
[2018-06-23] MEDS: [UNRECOGNIZED DRUG - OTHER] IV SCH (15:07)
[2018-06-23] MEDS: SODIUM ACETATE IV SCH (15:07)
[2018-06-23] MEDS: CALCIUM CHLORIDE IV SCH (15:07)
--- NOTE | 2018-06-23 15:13 | PRG ---
DATE OF SERVICE: 06/23/2018 Eliana Barnes had a hemodialysis catheter and central line placed today. The patient is undergoing hemodialysis. I had a long discussion with the patient's and her son. I have also discussed patient's care with Dr. Eron Tsai. Dr. Tsai had been seeing the patient for some time preoperatively. He had been seen him for years. The patient's quality of life and mobility at home was poor prior to this current hospitalization and event. The patient's reiterates this. The patient's son agrees. The patient's states that the patient's quality life was poor and that she was not happy with her living situation and existence. Family states that it is the patient's wishes previously expressed to the family that she not have a tracheostomy or feeding tube. They also state that if she continues to have problems, they do not want to continue care. They wish to continue dialysis efforts and observe her, but if there is continued problems and deterioration, there may be a decision in the future to withdraw care. Currently, we will continue hemodialysis. Family wishes to establish a DNR status. They do not want CPR or defibrillation. They do want to continue care as we are doing to see if she has any improvement. We will discuss things further pending her clinical course over the next few days. Job ID: [id number]
--- NOTE | 2018-06-23 15:33 | RAD ---
RADIOGRAPH CHEST 1 VIEW: Date: 06-23-18 Time: 1:07 p.m. HISTORY: Central line placement in 83-year-old female. COMPARISON: 06-23-18 4:56 a.m. FINDINGS: Endotracheal tube, Dobbhoff feeding tube, NG tube, and spinal cord stimulator, are again noted. Right sided PICC remains. There is a new double lumen right sided dialysis catheter descending from the [facility] medial neck, presumably in the internal jugular vein, with distal tip overlying the expected loca tion of the SVC. No pneumothorax visualized. Again noted are the bilateral pleural effusions, right g reater than left, and pulmonary parenchymal densities as previously described. No pneumothorax is vis ualized. IMPRESSION: 1. Interval placement of double lumen right sided hemodialysis catheter. 2. No other interval change. 3. No pneumothorax. [facility] POS: [facility]
--- NOTE | 2018-06-23 15:41 | OP ---
DATE OF PROCEDURE: 06/23/2018 PREOPERATIVE DIAGNOSES: Acute renal failure; status post wound dehiscence; history of bacteremia; line, status post removal; history of colon obstruction this hospitalization with colon resection, Kiran's procedure, an open abdomen is closed at this time. POSTOPERATIVE DIAGNOSES: Acute renal failure; status post wound dehiscence; history of bacteremia; line, status post removal; history of colon obstruction this hospitalization with colon resection, Kiran's procedure, an open abdomen is closed at this time. PROCEDURES PERFORMED: Placement of right IJ-cuffed tunneled hemodialysis catheter and placement of left IJ triple-lumen catheter. ANESTHESIA: General. Ultrasound fluoroscopy used. Wound Care Team arrived to change her wound VAC and her wound looked healthy without obvious dehiscence (serous drainage 500 mL overnight - fluid overload). DESCRIPTION OF PROCEDURE: The patient was taken to the operating room, where under general anesthesia, neck and chest were prepared with ChloraPrep, draped in routine fashion. Ultrasound guidance was used to cannulate the right and left internal jugular veins with a trocar catheter and J-wire was threaded. This was somewhat difficult on the left as it tend to turned back on itself, but with persistence, it was manipulated into the superior vena cava. On the right side, the catheter likewise would not fall easily into the SVC, but with some manipulation, it did. Using a stab incision, skin sites were enlarged both sides at the J-wire entry site and a stab incision was made over the right chest. Seldinger technique was used to place a triple-lumen catheter. It tend to turn back up the SVC, but with some manipulation, finally it was directed caudally. The catheter was secured with two interrupted of 3-0 nylon. Sterile dressing was applied. Each port aspirated blood and flushed with saline solution. On the right side, through the stab incision over the right chest, the tunneling device was used to tunnel the catheter between the two incisions, placing the fabric cuff beneath the skin exit site over the right chest and catheter was secured with 2 interrupted sutures of 3-0 nylon. Sterile dressing was applied. Small and medium size dilators were placed over the J-wire into the internal jugular vein and removed. Dilator and Peel-Away sheath was placed over the J-wire into the superior vena cava. Under fluoroscopic visualization, dilator and J-wire were removed. Catheter was placed through the Peel-Away sheath. Peel-Away sheath was removed. Fluoroscopic images revealed good line placements bilaterally. Platysma was approximated with 4-0 Monocryl, skin with subdermal 4-0 Monocryl and Dyer glue applied. Each port aspirated blood and flushed with heparinized saline solution with 1000 units of heparin indicating volume of the port. Final fluoroscopic images revealed good line placement. Wound Care Team arrived to change her wound VAC. The patient tolerated the procedure well. Job ID: [id number]
[2018-06-23 16:49] LABS: Vancomycin, Random 18.6 ug/mL (See Comment)
[2018-06-23 17:33] LABS: Hep B Surf Ag NonReactive S/CO (NonReactive)
[2018-06-23] MEDS ORDERED: Vancomycin HCl 500 MG in Sodium Chloride 0.9% 100 ML IVPB SCH (18:00)
--- NOTE | 2018-06-23 19:08 | PRG ---
DATE OF SERVICE: 06/23/2018 PHYSICAL EXAMINATION: VITAL SIGNS: The patient noted with the following vital signs. Blood pressure 159/44 and pulse of 55. HEENT: Remarkable for endotracheal tube in place. CARDIOVASCULAR SYSTEM: First and second heart sounds were heard. RESPIRATORY SYSTEM: Revealed ventilator sounds. DIGESTIVE SYSTEM: Revealed distant abdomen. EXTREMITIES: Showed 4+ bilateral upper and lower extremity edema. SKIN: No new gross rash. LABORATORY INVESTIGATION: Showed a creatinine above 4. The patient is not making much of any urine. IMPRESSION: 1. Dense acute tubular necrosis, aneuric. 2. Profound anasarca. 3. Cardiopulmonary failure. PLAN: The patient is overtly fluid overloaded. We will initiate hemodialysis today with ultrafiltration as tolerated by hemodynamic. Study to place dialysis catheter in preparation of hemodialysis. Further management to be dependent on the clinical course. Job ID: [id number]
[2018-06-23] MEDS: Insulin Regular 300 UNITS/3 ML VIAL SC PRN (23:19)
[2018-06-24 04:18] LABS: Magnesium 1.8 mg/dL (1.6-2.6); Phosphorus 3.1 mg/dL (2.3-4.7)
[2018-06-24 04:20] LABS: Anion Gap 15 mmol/L (10-20); BUN (Urea Nitrogen) 77 mg/dL (9.8-20.1); Calc. Creatinine Clearance 12 mL/min (70-130); Calcium 8.2 mg/dL (7.8-10.44); Carbon Dioxide 18 mmol/L (23-31); Chloride 101 mmol/L (98-107); Estimated GFR-MDRD 13; Glucose 210 mg/dL (83-110); Potassium 3.2 mmol/L (3.5-5.1); Sodium 131 mmol/L (136-145)
[2018-06-24 04:37] LABS: Band 30 % (5-11); Hemoglobin 8.1 g/dL (12.0-16.0); Lymphocytes 2 % (21-51); MDiff Complete? YES; Mean Corpuscular HGB CONC 33.3 g/dL (32.0-36.0); Mean Corpuscular Hemoglobin 31.5 pg (27.0-31.0); Mean Corpuscular Volume 94.6 fL (78.0-98.0); Mean Platelet Volume 8.3 fL (7.4-10.4); Metamyelocyte 4 % (0-0); Monocytes 1 % (0-10); Myelocyte 6 % (0-0); Neutrophil 57 % (42-75); Platelet Count 194 thou/uL (130-400); RBC Distribution Width 13.8 % (11.5-14.5); Red Blood Cell (RBC) Count 2.57 mill/uL (4.20-5.40); White Blood Cell (WBC) Count 16.9 thou/uL (4.8-10.8)
[2018-06-24] MEDS: Insulin Regular 300 UNITS/3 ML VIAL SC PRN ×2 (05:35→16:08)
[2018-06-24] MEDS: Piperacillin/Tazobactam 2.25 GM in Sodium Chloride 0.9% 100 ML IVPB SCH ×2 (05:36→16:15)
[2018-06-24] MEDS: Levothyroxine 100 MCG SDV IVP SCH (05:37)
[2018-06-24] MEDS: Metoclopramide HCl 10 MG/2 ML VIAL IVP SCH ×3 (05:37→21:31)
[2018-06-24] MEDS: methylPREDNISolone Sod Succ 40 MG VIAL IVP SCH ×4 (05:37→21:32)
[2018-06-24 07:23] LABS: Actual Bicarbonate (HCO3a) 18.4 mEq/L (22-28); Base Excess (BEa) -8.2 mEq/L (-2.0 to +3.0); CO2 Tension 42.5 mmHg (35.0-45.0); Calcium, Ionized 1.15 mmol/L (1.12-1.30); Carboxyhemoglobin (COHb) 1.4 gm% (0.0-3.0); Hemoglobin (Hb) 8.6 g/dL (12.0-16.0); O2 Tension (PaO2) 70.6 mmHg (> 60.0); Potassium - ABG Lab 3.04 mmol/L (3.70-5.30); pH, Arterial 7.26 (7.35-7.45)
[2018-06-24 07:25] LABS: ALV-art Gradient 90.175 (0-20)
--- NOTE | 2018-06-24 08:29 | RAD ---
SINGLE VIEW CHEST: Date: 0 06/24/18 COMPARISON: 06/23/18. HISTORY: Ventilated patient with respiratory failure. FINDINGS: Single view of the chest shows normal sized cardiomediastinal silhouette. The lines and tubes are unc hanged in position. There may be a small left pleural effusion. No right pleural effusion is seen. IMPRESSION: Possible small left pleural effusion. POS: [facility]
--- NOTE | 2018-06-24 08:49 | PRG ---
DATE OF SERVICE: 06/24/2018 TIME: 35 minutes critical time. SUBJECTIVE: The patient remains intubated on mechanical ventilation. She received one round of dialysis yesterday and thought to undergo 2nd round today. OBJECTIVE: VITAL SIGNS: Temperature is 97.0 with no fever overnight, pulse 66, blood pressure 130/51. A 24-hour intake 26/94, output 10/58. HEENT: Unremarkable. NECK: No JVD. CHEST: Fairly clear anteriorly. CARDIAC: S1 and S2, regular. ABDOMEN: Retention sutures noted. Left colostomy noted. EXTREMITIES: Edematous throughout. LABORATORY DATA: White blood cell count 16.9, hemoglobin 8.1, hematocrit 24.4, and platelet count 194. PH 7.26, pCO2 of 42, pO2 of 70 on SIMV rate of 18, tidal volume 350, PEEP 5, pressure support 16, FiO2 of 30%. Sodium 131, potassium 3.2, chloride 101, CO2 of 18, BUN 77, creatinine 3.4, glucose 210. Chest x-ray shows clearing compared to yesterday. ASSESSMENT: 1. Acute on chronic respiratory failure, requiring mechanical ventilation. 2. Underlying severe chronic obstructive pulmonary disease. 3. Acute renal failure. 4. Status post wound dehiscence. 5. Anemia secondary to critical illness. PLAN: The patient is undergoing hemodialysis today. I have stopped her fluconazole and I will cut her steroids in half. Dr. Law is giving her tube feeds, but so far she has not been able to tolerate those. She is also on TPN. Her prognosis continues to be quite poor. I will speak with the family when they arrive. Job ID: [id number]
[2018-06-24] MEDS: Dextrose 5% in Water 1,000 ML IV SCH (08:53)
[2018-06-24 09:46] VITALS: BMI 36.9
--- NOTE | 2018-06-24 10:14 | PDOC.PN ---
- Subjective Encounter Start Date: 06/24/18 Encounter Start Time: 12:00 -: non-verbal Subjective: patient remains on vent - Objective Resuscitation Status - Order Detail: 06/23/18 14:57 Resuscitation Status Routine Resuscitation Status: DNAR: NO Resuscitation Discussed with: see dictated note-discussed with , son & Dr Tsai. continue vent, Additional comments: dialysis but No CPR or Shocks. No Trachs or PEGS. MAR Reviewed: Yes Vital Signs & Weight: Vital Signs (12 hours) Temp Pulse Resp BP Pulse Ox 06/24/18 08:00 18 06/24/18 07:20 67 168/66 H 06/24/18 07:15 69 23 H 92 L 06/24/18 07:00 97.9 F 06/24/18 06:00 19 06/24/18 04:00 97.0 F L 18 06/24/18 02:17 58 L 151/47 H 06/24/18 02:00 19 06/24/18 00:00 97.2 F L 22 H 06/23/18 22:16 54 L 125/41 L Weight Admit Weight 131 lb 1.6 oz Weight 183 lb 3.266 oz Most Recent Monitor Data Heart Rate from ECG 73 NIBP 148/56 NIBP BP-Mean 86 Respiration from ECG 14 SpO2 94 I&O: 06/23/18 06/24/18 06/25/18 06:59 06:59 06:59 Intake Total 3599.4 2694 Output Total 1485 1058 0 Balance 2114.4 1636 0 Result Diagrams: 06/24/18 03:53 06/24/18 03:53 Additional Labs: Accuchecks 06/23/18 06/23/18 16:12 09:56 POC Glucose 121 H 188 H Phys Exam - Physical Examination HEENT: moist MMs Respiratory: clear to auscultation bilateral Cardiovascular: RRR Gastrointestinal: positive bowel sounds Neurological: non-focal Deviation from normal: sedated on vent Dx/Plan (1) Hypertension Code(s): I10 - ESSENTIAL (PRIMARY) HYPERTENSION Status: Acute Qualifiers: Hypertension type: essential hypertension Qualified Code(s): I10 - Essential (primary) hypertension Comment: decently controlled (2) Bowel obstruction Code(s): K56.609 - UNSP INTESTNL OBST, UNSP TO PARTIAL VERSUS COMPLETE OBST Status: Acute (3) Colon cancer Code(s): C18.9 - MALIGNANT NEOPLASM OF COLON, UNSPECIFIED Status: Acute (4) Acute kidney failure Status: Acute Comment: starting dialysis - Plan cont current plan of care no changes to antihypertensive regimen at this point * . - Discharge Day Encounter end time: 12:10
[2018-06-24] MEDS: Pantoprazole 40 MG VIAL IVP SCH (10:50)
[2018-06-24] MEDS ORDERED: Heparin 1,000 UNITS/ML VIAL ONE (11:11)
[2018-06-24] MEDS: SODIUM ACETATE IV SCH (14:28)
[2018-06-24] MEDS: CALCIUM CHLORIDE IV SCH (14:28)
[2018-06-24] MEDS: [UNRECOGNIZED DRUG - OTHER] IV SCH (14:28)
--- NOTE | 2018-06-24 15:12 | PRG ---
DATE OF SERVICE: 06/24/2018 SUBJECTIVE: Ms. Barnes is doing well. She is stable today. She is on the ventilator. She has been sedated. Blood pressure 157/50, heart rate 63. Urine output is negligible for 24 hours, 133 mL. Colostomy output 150-200 mL stool in the colostomy bag. The patient was on tube feedings 20 an hour, but experienced emesis early this morning. NG tube placed back to suction and tube feedings held. White count 16, hemoglobin 8.1. Sodium 131, potassium 3.2, BUN 77, creatinine 3.35, GFR 13. OBJECTIVE: LUNGS: Clear to auscultation. CARDIAC: Regular rate and rhythm. No murmur or gallop. ABDOMEN: Soft, quiet, nontender. EXTREMITIES: Edematous. ASSESSMENT AND PLAN: 1. Acute renal failure, oliguric. Prognosis poor. Continue hemodialysis. 2. Severe malnutrition, continue TPN. 3. Cannot tolerate tube feedings due to ileus. NG tube suction. 4. Respiratory failure, on ventilator. 5. Deconditioning. 6. Malnutrition. 7. Multiple organ failure, respiratory failure, ventilator dependent. As noted previously, the patient has been made a DNR. Family wants to continue code care at this point, but at some point, they may want to withdraw care as they do not want her to suffer. Currently, she is no CPR, no defibrillation. We will continue to treat her aggressively with hemodialysis, antibiotics and observe her. At some point soon, will need to be rediscussed with the family continued care, more issues. Family does not want tracheostomy or PEG tube. Job ID: [id number]
[2018-06-24] MEDS: hydrALAZINE 20 MG/ML VIAL SLOW IVP PRN (16:34)
[2018-06-24] MEDS ORDERED: Heparin 5,000 UNITS/ML VIAL SC SCH (21:00)
[2018-06-24] MEDS: Propofol 1,000 MG/100 ML VIAL IV PRN (21:31)
[2018-06-25] MEDS: methylPREDNISolone Sod Succ 40 MG VIAL IVP SCH ×4 (03:29→22:01)
[2018-06-25 03:37] LABS: Band 39 % (5-11); Hemoglobin 7.3 g/dL (12.0-16.0); Lymphocytes 7 % (21-51); MDiff Complete? YES; Mean Corpuscular HGB CONC 34.1 g/dL (32.0-36.0); Mean Corpuscular Hemoglobin 31.9 pg (27.0-31.0); Mean Corpuscular Volume 93.7 fL (78.0-98.0); Mean Platelet Volume 8.1 fL (7.4-10.4); Metamyelocyte 6 % (0-0); Monocytes 4 % (0-10); Neutrophil 44 % (42-75); Nucleated RBC 1 % (0); Platelet Count 232 thou/uL (130-400); Platelet Morphology Comment Appears Adequate; RBC Distribution Width 13.8 % (11.5-14.5); Red Blood Cell (RBC) Count 2.28 mill/uL (4.20-5.40); White Blood Cell (WBC) Count 20.4 thou/uL (4.8-10.8)
[2018-06-25 03:38] LABS: Anion Gap 14 mmol/L (10-20); BUN (Urea Nitrogen) 69 mg/dL (9.8-20.1); Calc. Creatinine Clearance 19 mL/min (70-130); Calcium 8.1 mg/dL (7.8-10.44); Carbon Dioxide 22 mmol/L (23-31); Chloride 99 mmol/L (98-107); Estimated GFR-MDRD 16; Glucose 155 mg/dL (83-110); Potassium 3.3 mmol/L (3.5-5.1); Sodium 132 mmol/L (136-145)
[2018-06-25 03:39] LABS: Magnesium 1.9 mg/dL (1.6-2.6); Phosphorus 2.3 mg/dL (2.3-4.7)
--- NOTE | 2018-06-25 03:59 | PRG ---
DATE OF SERVICE: 06/24/2018 SUBJECTIVE: The patient is seen and examined, still on life support, but somewhat responsive, noted with the following vital signs. OBJECTIVE: VITAL SIGNS: Blood pressure 161/60 to 171/52. HEENT: Remarkable for endotracheal tube in place. CARDIOVASCULAR SYSTEM: First and second heart sounds were heard. RESPIRATORY SYSTEM: Revealed ventilator sounds. DIGESTIVE SYSTEM: Revealed positive bowel sounds. EXTREMITIES: Show some peripheral edema. SKIN: No new gross rash. LYMPHATICS: No peripheral lymphadenopathy. LABORATORY INVESTIGATION: Showed a sodium of 131, potassium 3.2, creatinine 3.35, and BUN of 77. IMPRESSION: 1. Dense acute tubular necrosis, aneuric with generalized anasarca. 2. Cardiopulmonary failure, on life support. 3. Hypokalemia and hyponatremia. 4. Metastatic colonic carcinoma, status post resection. PLAN: 1. The patient for now to continue hemodialysis with ultrafiltration as tolerated by hemodynamics. We will likely step off the ultrafiltration tomorrow. 2. We will continue to dialyze this patient with a higher potassium bath. 3. Renally dose all medications and avoid potentially nephrotoxic agents. 4. Further management to be dependent on the clinical course. Job ID: [id number]
[2018-06-25] MEDS: Piperacillin/Tazobactam 2.25 GM in Sodium Chloride 0.9% 100 ML IVPB SCH ×2 (05:07→16:10)
[2018-06-25] MEDS: Levothyroxine 100 MCG SDV IVP SCH (05:07)
[2018-06-25] MEDS: Metoclopramide HCl 10 MG/2 ML VIAL IVP SCH ×3 (05:08→22:01)
[2018-06-25] MEDS: hydrALAZINE 20 MG/ML VIAL SLOW IVP PRN (06:34)
[2018-06-25] MEDS: Labetalol HCl 100 MG/20 ML VIAL SLOW IVP SCH (07:25)
[2018-06-25 07:27] LABS: Actual Bicarbonate (HCO3a) 22.8 mEq/L (22-28); Base Excess (BEa) -2.3 mEq/L (-2.0 to +3.0); CO2 Tension 40.3 mmHg (35.0-45.0); Calcium, Ionized 1.13 mmol/L (1.12-1.30); Hemoglobin (Hb) 8.6 g/dL (12.0-16.0); O2 Tension (PaO2) 71.2 mmHg (> 60.0); Potassium - ABG Lab 3.21 mmol/L (3.70-5.30); pH, Arterial 7.37 (7.35-7.45)
[2018-06-25 07:30] LABS: ALV-art Gradient 92.325 (0-20); Puncture Site LBA
[2018-06-25] MEDS: Pantoprazole 40 MG VIAL IVP SCH (08:27)
--- NOTE | 2018-06-25 08:34 | PRG ---
DATE OF SERVICE: 06/25/2018 TIME: 35 minutes critical care time. SUBJECTIVE: Ms. Barnes looks terrible. She has bruising throughout her body. She is on minimal sedation and is barely responsive. OBJECTIVE: VITAL SIGNS: Temperature is 97.8 with no fever overnight, pulse 92, and blood pressure 181/75. She is currently on propofol drip. HEENT: Unremarkable except for endotracheal tube, orogastric tube, and Dobbhoff tube in place. NECK: No JVD. CHEST: She has bleeding around her right tunneled IJ dialysis catheter site. LUNGS: Coarse breath sounds. CARDIAC: S1 and S2, regular. ABDOMEN: Midline wound looks like healing okay. The colostomy is noted. EXTREMITIES: Significant bruising on both hands. Petechiae changes over the left tibial area. LABORATORY DATA: White blood cell count 20.4, hemoglobin 7.3, hematocrit 21.4, and platelet count 232. PH 7.37, pCO2 of 40, pO2 of 71 on SIMV rate 18, tidal volume 350, PEEP 5, pressure support 16, FiO2 of 30%. Sodium 132, potassium 3.3, chloride 99, CO2 of 22, BUN 69, creatinine 2.8, glucose 155. Chest x-ray shows pulmonary vascular congestion bilaterally. ASSESSMENT: 1. Acute respiratory failure requiring mechanical ventilation. 2. Significant underlying severe chronic obstructive pulmonary disease that was pre-existing prior to hospitalization. 3. Acute renal failure with no evidence of renal recovery at this point. 4. Status post wound dehiscence and subsequent laparotomy. 5. Anemia secondary to critical illness and her acute renal failure. PLAN: It is my opinion that Ms. Barnes will not recover from these insults. She was extremely debilitated before this hospitalization and I think she has reached tipping point to her recovery is impossible. The family is under the impression that we were going to give this a try. I would be very adverse to continuing much beyond what we have already done. At the current time, her ventilator parameters are stable. I have reviewed her medications. I have stopped the heparin given the bleeding that we see. We will discuss with other providers at the end of the case. Job ID: [id number]
--- NOTE | 2018-06-25 08:34 | RAD ---
SINGLE VIEW CHEST: Date: 06/25/18 COMPARISON: 06/24/18. HISTORY: Ventilated patient with respiratory failure. FINDINGS: Single view of the chest shows a normal sized cardiomediastinal silhouette. The lines and tubes are u nchanged in position. There is a veil-like opacity projecting over the lower aspect of both thoraces, which may represent layering pleural effusions. IMPRESSION: Bilateral pleural effusions. POS: [facility]
--- NOTE | 2018-06-25 09:35 | PDOC.PN ---
- Subjective Encounter Start Date: 06/25/18 (f/u hypertension) Encounter Start Time: 09:33 Subjective: No overnight events, heparin d/c due to bruising -: bp's remain controlled - Objective Resuscitation Status - Order Detail: 06/23/18 14:57 Resuscitation Status Routine Resuscitation Status: DNAR: NO Resuscitation Discussed with: see dictated note-discussed with , son & Dr Tsai. continue vent, Additional comments: dialysis but No CPR or Shocks. No Trachs or PEGS. Vital Signs & Weight: Vital Signs (12 hours) Temp Pulse Resp BP Pulse Ox 06/25/18 08:15 75 181/75 H 06/25/18 08:00 98.9 F 23 H 06/25/18 07:25 75 181/75 H 06/25/18 06:34 75 184/51 H 06/25/18 06:25 75 175/54 H 94 L 06/25/18 06:23 73 29 H 95 06/25/18 06:00 22 H 06/25/18 04:00 97.8 F 22 H 06/25/18 02:32 68 145/48 H 06/25/18 02:00 22 H 06/25/18 00:00 98.0 F 22 H 06/24/18 22:18 63 146/52 H 06/24/18 22:00 26 H Weight Admit Weight 131 lb 1.6 oz Weight 183 lb 3.266 oz Most Recent Monitor Data Heart Rate from ECG 62 NIBP 132/38 NIBP BP-Mean 69 Respiration from ECG 20 SpO2 97 I&O: 06/24/18 06/25/18 06/26/18 06:59 06:59 06:59 Intake Total 2694 2325.3 Output Total 1058 930 0 Balance 1636 1395.3 0 Result Diagrams: 06/25/18 03:16 06/25/18 03:16 Additional Labs: Accuchecks 06/24/18 06/24/18 06/24/18 23:27 16:08 12:18 POC Glucose 157 H 177 H 162 H 06/23/18 23:18 POC Glucose 199 H EKG Reviewed by me: Yes (rate 60's and c/w sinus alternating with a fib) Phys Exam - Physical Examination Constitutional: NAD intubated and sedated Respiratory: no wheezing, no rales, no rhonchi Cardiovascular: RRR, no significant murmur Gastrointestinal: soft, positive bowel sounds edema in hands/legs/feet Deviation from normal: intubated and sedated Deviation from normal: petechiae on legs, ecchymosis on arms/legs Dx/Plan (1) Acute kidney failure Status: Acute Qualifiers: Acute renal failure type: with acute tubular necrosis Qualified Code(s): N17.0 - Acute kidney failure with tubular necrosis Comment: starting dialysis (2) Colon cancer Code(s): C18.9 - MALIGNANT NEOPLASM OF COLON, UNSPECIFIED Status: Acute Qualifiers: Colon location: unspecified part of colon Qualified Code(s): C18.9 - Malignant neoplasm of colon, unspecified (3) Hypertension Code(s): I10 - ESSENTIAL (PRIMARY) HYPERTENSION Status: Acute Qualifiers: Hypertension type: essential hypertension Qualified Code(s): I10 - Essential (primary) hypertension - Plan * bp not optimally controlled with prn meds - add clonidine patch and monitor * Pt with NG tube on suction now - because of this, hold on oral meds * rate controlled a fib - currently not a candidate for full anticoagulation given the other significant problems * appreciate Pulm managing vent * appreciate Nephro managing dialysis * * dvt proph - scd's * gi prophy - famotidine * code status DNAR * * pt remains at high risk of in-hospital decompensation due to current condition * no family present to discuss status with - will as they are available.. * 23:15 - spoke with Dr. Law earlier this evening who reports that after discussion with family, withdrawal of care is being considered and may be requested this weekend. Dr. Law is not risk prevention engineer this weekend, any changes to care will be made by the hospitalist team.
[2018-06-25] MEDS: Insulin Regular 300 UNITS/3 ML VIAL SC PRN ×3 (10:45→22:03)
[2018-06-25] MEDS: Propofol 1,000 MG/100 ML VIAL IV PRN ×2 (10:52→22:01)
[2018-06-25] MEDS ORDERED: Vancomycin HCl 1 GM in Premix Bag 1 BAG IVPB SCH (11:15)
[2018-06-25] MEDS ORDERED: Vancomycin HCl 1.25 GM in Sodium Chloride 0.9% 250 ML 250 ML IVPB SCH (11:15)
[2018-06-25] MEDS ORDERED: Vancomycin HCl 500 MG in Sodium Chloride 0.9% 100 ML IVPB SCH (11:15)
[2018-06-25] MEDS ORDERED: HOLD VANCOMYCIN FOR LEVEL >20 FS SCH (11:15)
[2018-06-25] MEDS ORDERED: Vancomycin HCl 750 MG in Sodium Chloride 0.9% 250 ML 250 ML IVPB SCH (11:15)
[2018-06-25] MEDS ORDERED: cloNIDine 0.1mg/24 Hour PATCH TD SCH (12:00)
[2018-06-25 12:06] LABS: Vancomycin, Random 25.1 ug/mL (See Comment)
[2018-06-25] MEDS: Dextrose 5% in Water 1,000 ML IV SCH (12:36)
[2018-06-25] MEDS: [UNRECOGNIZED DRUG - OTHER] IV SCH (14:01)
[2018-06-25] MEDS: SODIUM ACETATE IV SCH (14:01)
[2018-06-25] MEDS: CALCIUM CHLORIDE IV SCH (14:01)
[2018-06-25] MEDS ORDERED: Heparin 10,000 UNITS/ 10 ML VIAL ONE (14:49)
--- NOTE | 2018-06-25 17:23 | PRG ---
DATE OF SERVICE: 06/25/2018 SUBJECTIVE: Elinaa Barnes is on the ventilator. She has minimal sedation. She has minimal response. OBJECTIVE: VITAL SIGNS: heart rate 73. LUNGS: Clear to auscultation. No wheezing. CARDIAC: Regulate rate and rhythm. ABDOMEN: Soft. Occasional bowel sounds. Gastric drainage 24 hours 20 mL. Urine output none in last 24 hours. Wound, midline, granulating poorly. LABORATORY DATA: White count 20,000, hemoglobin 7.3. GFR 16, creatinine 2.85, BUN 69, sodium 132, potassium 3.3. ASSESSMENT AND PLAN: 1. Respiratory failure. Continue ventilator. Family does not want tracheostomy. 2. Malnutrition, not tolerated tube feedings, have to place NG tube back to suction. She has minimal gastric drainage. Continue NG tube to suction. Continue TPN. 3. Poor functional status. 4. Acute renal failure, anuric. Continue hemodialysis. 5. T4 colon cancer, obstructing, status post colostomy. Colostomy is healthy. She has some stool in the ostomy bag. 6. Poor prognosis, multiple organ failure, and poor performance standard prior to this operation. I did discuss the patient's condition with the family today. The patient's and son are present. I have expressed opinion of the physicians involved, Dr. Tsai and myself. The patient is unlikely to survive her current condition and the family does not want her to suffer, they have other family members coming into town from [id number] and in-[place] in this weekend, we will discuss things. Should they want to withdraw care, this is certainly appropriate. She is DNR. Dr. Cohen is covering this weekend. Job ID: [id number]
[2018-06-26] MEDS: methylPREDNISolone Sod Succ 40 MG VIAL IVP SCH ×4 (04:15→20:20)
[2018-06-26] MEDS: Piperacillin/Tazobactam 2.25 GM in Sodium Chloride 0.9% 100 ML IVPB SCH ×2 (04:15→16:26)
[2018-06-26] MEDS: Insulin Regular 300 UNITS/3 ML VIAL SC PRN ×2 (04:20→16:46)
[2018-06-26 05:11] LABS: Anion Gap 12 mmol/L (10-20); BUN (Urea Nitrogen) 73 mg/dL (9.8-20.1); Calc. Creatinine Clearance 19 mL/min (70-130); Calcium 8.1 mg/dL (7.8-10.44); Carbon Dioxide 24 mmol/L (23-31); Chloride 96 mmol/L (98-107); Estimated GFR-MDRD 16; Glucose 181 mg/dL (83-110); Magnesium 1.9 mg/dL (1.6-2.6); Phosphorus 2.5 mg/dL (2.3-4.7); Sodium 129 mmol/L (136-145)
[2018-06-26 05:20] LABS: Band 18 % (5-11); Hemoglobin 7.2 g/dL (12.0-16.0); Lymphocytes 9 % (21-51); MDiff Complete? YES; Mean Corpuscular HGB CONC 33.5 g/dL (32.0-36.0); Mean Corpuscular Hemoglobin 31.4 pg (27.0-31.0); Mean Corpuscular Volume 93.9 fL (78.0-98.0); Mean Platelet Volume 8.3 fL (7.4-10.4); Metamyelocyte 4 % (0-0); Monocytes 3 % (0-10); Neutrophil 66 % (42-75); Nucleated RBC 1 % (0); Ovalocytes SLIGHT = 2-5 cells (100X) (0-1/hpf); Platelet Count 270 thou/uL (130-400); Platelet Morphology Comment Appears Adequate; RBC Distribution Width 14.3 % (11.5-14.5); White Blood Cell (WBC) Count 25.1 thou/uL (4.8-10.8)
[2018-06-26] MEDS: Metoclopramide HCl 10 MG/2 ML VIAL IVP SCH ×3 (06:09→21:02)
[2018-06-26] MEDS: Levothyroxine 100 MCG SDV IVP SCH (06:09)
[2018-06-26] MEDS: Propofol 1,000 MG/100 ML VIAL IV PRN ×2 (07:08→16:43)
[2018-06-26 07:52] LABS: Actual Bicarbonate (HCO3a) 22.3 mEq/L (22-28); Base Excess (BEa) -3.5 mEq/L (-2.0 to +3.0); CO2 Tension 43.8 mmHg (35.0-45.0); Calcium, Ionized 1.09 mmol/L (1.12-1.30); Carboxyhemoglobin (COHb) 1.9 gm% (0.0-3.0); Hemoglobin (Hb) 7.6 g/dL (12.0-16.0); Potassium - ABG Lab 2.95 mmol/L (3.70-5.30); pH, Arterial 7.32 (7.35-7.45)
[2018-06-26 08:08] LABS: Vancomycin, Random 20.7 ug/mL (See Comment)
--- NOTE | 2018-06-26 08:37 | RAD ---
SINGLE VIEW OF THE CHEST: COMPARISON: 06/25/2018. HISTORY: Ventilated patient with respiratory failure. FINDINGS: A single view of the chest shows a normal-size cardiomediastinal silhouette. The lines and tubes are unchanged in position. The spinal stimulation device is unchanged in position. There is a veil-lik e opacity in the inferior right thorax which could represent a small layering pleural effusion. IMPRESSION: Stable exam. POS: [facility]
[2018-06-26 08:38] LABS: Puncture Site LBA
[2018-06-26] MEDS: Pantoprazole 40 MG VIAL IVP SCH (08:40)
--- NOTE | 2018-06-26 09:10 | PDOC.PN ---
- Subjective Encounter Start Date: 06/26/18 Encounter Start Time: 09:07 Patient seen and examined, no family at bedside. - Objective Resuscitation Status - Order Detail: 06/23/18 14:57 Resuscitation Status Routine Resuscitation Status: DNAR: NO Resuscitation Discussed with: see dictated note-discussed with , son & Dr Tsai. continue vent, Additional comments: dialysis but No CPR or Shocks. No Trachs or PEGS. Vital Signs & Weight: Vital Signs (12 hours) Temp Pulse Resp BP Pulse Ox 06/26/18 07:28 73 175/56 H 97 06/26/18 07:26 69 18 97 06/26/18 07:00 98.5 F 06/26/18 06:00 21 H 06/26/18 04:00 97.9 F 32 H 06/26/18 03:49 71 06/26/18 02:00 20 06/26/18 00:00 97.8 F 25 H 06/25/18 23:26 67 158/45 H 06/25/18 22:23 56 L 06/25/18 22:00 23 H Weight Admit Weight 131 lb 1.6 oz Weight 183 lb 3.266 oz Most Recent Monitor Data Heart Rate from ECG 70 NIBP 175/56 NIBP BP-Mean 95 Respiration from ECG 30 SpO2 96 I&O: 06/25/18 06/26/18 06/27/18 06:59 06:59 06:59 Intake Total 2325.3 2734 Output Total 930 1420 0 Balance 1395.3 1314 0 Result Diagrams: 06/26/18 04:35 06/26/18 04:35 Additional Labs: Accuchecks 06/26/18 06/25/18 06/25/18 04:21 22:04 15:28 POC Glucose 194 H 192 H 157 H 06/25/18 10:34 POC Glucose 205 H Phys Exam - Physical Examination Constitutional: NAD intubated/sedated HEENT: PERRLA intubated sedated Neck: no nodes, no JVD, supple coarse breath sounds intubated tachycardia 2/6 MIRA Gastrointestinal: soft +wound vac Musculoskeletal: pulses present, edema present Dx/Plan (1) Acute kidney failure Status: Acute Qualifiers: Acute renal failure type: with acute tubular necrosis Qualified Code(s): N17.0 - Acute kidney failure with tubular necrosis Comment: starting dialysis (2) Hypertension Code(s): I10 - ESSENTIAL (PRIMARY) HYPERTENSION Status: Acute Qualifiers: Hypertension type: essential hypertension Qualified Code(s): I10 - Essential (primary) hypertension (3) Small bowel obstruction Code(s): K56.609 - UNSP INTESTNL OBST, UNSP TO PARTIAL VERSUS COMPLETE OBST Status: Acute - Plan * overall very poor prognosis * At this point in time BP to be managed per renal as patient is on HD and anuric. Continue with PRN BP meds which she already getting * Patient overall condition continues to deteroirate, surgery team following closely as well as ICU team * medicine team signing off as medical management can be done in this situation by the ICU team and BP management can be done by nephrology, medicine team consulted for BP management, please recall as needed
--- NOTE | 2018-06-26 10:29 | PRG ---
DATE OF SERVICE: 06/26/2018 SUBJECTIVE: Eliana Barnes is an 83-year-old female, intubated on the vent, sedated, pretty much encephalopathic, unresponsive. OBJECTIVE: VITAL SIGNS: Agonal respirations at 35, sats are 96% on the vent, blood pressure is 176/85, pulse 91, and temperature 98.5. CHEST: Extensive rhonchi. CARDIAC: Sinus tach. ABDOMEN: Distended and soft. EXTREMITIES: 2+ edema. LABORATORY DATA: White count is 25,000, hemoglobin and hematocrit of 7.2 and 21 , platelet count 270. PO2 of 79, pCO2 is _42 PH7.45 30% FiO2. Chest x-ray shows small pleural effusion. BUN and creatinine are 78 and 2.83. IMPRESSION: 1. Respiratory failure, not weanable. 2. Status post underlying chronic obstructive pulmonary disease. 3. Status post ileus, status post lap. 4. Adenocarcinoma. PLAN: Continue supportive care, nutrition, TPN, broad-spectrum antibiotics. She is clearly not weanable at this stage. One-half hour of critical time. Job ID: [id number] MTDD
[2018-06-26] MEDS ORDERED: Heparin 1,000 UNITS/ML VIAL ONE (11:11)
[2018-06-26] MEDS: Dextrose 5% in Water 1,000 ML IV SCH (11:12)
[2018-06-26] MEDS: Labetalol HCl 100 MG/20 ML VIAL SLOW IVP SCH (14:47)
[2018-06-26] MEDS: CALCIUM CHLORIDE IV SCH (16:19)
[2018-06-26] MEDS: SODIUM ACETATE IV SCH (16:19)
[2018-06-26] MEDS: [UNRECOGNIZED DRUG - OTHER] IV SCH (16:19)
[2018-06-27] MEDS: methylPREDNISolone Sod Succ 40 MG VIAL IVP SCH ×4 (04:12→21:05)
[2018-06-27] MEDS: Propofol 1,000 MG/100 ML VIAL IV PRN ×4 (04:18→20:33)
[2018-06-27 04:56] LABS: Anion Gap 13 mmol/L (10-20); BUN (Urea Nitrogen) 56 mg/dL (9.8-20.1); Calc. Creatinine Clearance 27 mL/min (70-130); Calcium 7.6 mg/dL (7.8-10.44); Carbon Dioxide 26 mmol/L (23-31); Chloride 98 mmol/L (98-107); Estimated GFR-MDRD 23; Glucose 171 mg/dL (83-110); Potassium 3.4 mmol/L (3.5-5.1); Sodium 134 mmol/L (136-145)
[2018-06-27 05:00] LABS: Band 34 % (5-11); Hemoglobin 6.7 g/dL (12.0-16.0); Lymphocytes 7 % (21-51); MDiff Complete? YES; Mean Corpuscular HGB CONC 34.5 g/dL (32.0-36.0); Mean Corpuscular Hemoglobin 32.4 pg (27.0-31.0); Mean Corpuscular Volume 93.8 fL (78.0-98.0); Mean Platelet Volume 8.1 fL (7.4-10.4); Metamyelocyte 5 % (0-0); Monocytes 2 % (0-10); Neutrophil 52 % (42-75); Nucleated RBC 2 % (0); Platelet Count 274 thou/uL (130-400); Platelet Morphology Comment Appears Adequate; RBC Distribution Width 14.4 % (11.5-14.5); Red Blood Cell (RBC) Count 2.06 mill/uL (4.20-5.40); White Blood Cell (WBC) Count 29.9 thou/uL (4.8-10.8)
[2018-06-27] MEDS: Metoclopramide HCl 10 MG/2 ML VIAL IVP SCH ×3 (05:22→21:05)
[2018-06-27] MEDS: Piperacillin/Tazobactam 2.25 GM in Sodium Chloride 0.9% 100 ML IVPB SCH ×2 (05:22→16:05)
[2018-06-27] MEDS: Insulin Regular 300 UNITS/3 ML VIAL SC PRN ×4 (05:40→22:23)
[2018-06-27] MEDS: Levothyroxine 100 MCG SDV IVP SCH (06:39)
[2018-06-27 07:02] LABS: Actual Bicarbonate (HCO3a) 25.5 mEq/L (22-28); Base Excess (BEa) 0.7 mEq/L (-2.0 to +3.0); CO2 Tension 41.7 mmHg (35.0-45.0); Calcium, Ionized 1.06 mmol/L (1.12-1.30); Carboxyhemoglobin (COHb) 1.7 gm% (0.0-3.0); Hemoglobin (Hb) 6.9 g/dL (12.0-16.0); O2 Tension (PaO2) 95.6 mmHg (> 60.0)
[2018-06-27 07:56] LABS: Phosphorus 2.2 mg/dL (2.3-4.7)
[2018-06-27 08:10] LABS: ALV-art Gradient 66.175 (0-20); Puncture Site LRA
--- NOTE | 2018-06-27 08:24 | RAD ---
SINGLE VIEW OF THE CHEST: COMPARISON: 06/26/2018. HISTORY: Ventilated patient with respiratory failure. FINDINGS: A single view of the chest shows an enlarged but stable cardiomediastinal silhouette. The lines and tubes are unchanged in position . There appear to be small bilateral pleural effusions, unchanged. IMPRESSION: Stable bilateral pleural effusions. POS: [facility]
[2018-06-27] MEDS: Pantoprazole 40 MG VIAL IVP SCH (08:59)
[2018-06-27] MEDS: Labetalol HCl 100 MG/20 ML VIAL SLOW IVP PRN (09:05)
--- NOTE | 2018-06-27 09:21 | PRG ---
DATE OF SERVICE: 06/27/2018 SUBJECTIVE: Afebrile female remains on the vent. OBJECTIVE: VITAL SIGNS: Pulse is 74, blood pressure is 133/44, sats are 98%, respirations are 18. GENERAL: Generalized anasarca. She nods to verbal communication. CHEST: Decreased breath sounds, anterior rhonchi. CARDIAC: Normal S1, S2. No gallops. ABDOMEN: Massive, distended. LABORATORY DATA: White count elevated at 29,000, H and H 6 and 19, platelet count 274. PO2 is 95, pCO2 41, pH is 7.41 on a rate of 18, 30% FiO2. Creatinine is 2, BUN is 56. X-ray showed bilateral PE. IMPRESSION: Respiratory failure, status post multiple laps, small bowel obstruction, wound cellulitis, renal failure, respiratory failure, severe deconditioning. PLAN: Family to decide about withdrawal of care. Allow transfusion of packed cells. In the meantime, continue antibiotics, supportive care. One-half hour of critical time. Job ID: [id number]
[2018-06-27] MEDS: Dextrose 5% in Water 1,000 ML IV SCH (12:37)
[2018-06-27 13:14] LABS: Vancomycin, Random 15.8 ug/mL (See Comment)
[2018-06-27] MEDS: CALCIUM CHLORIDE IV SCH (14:23)
[2018-06-27] MEDS: [UNRECOGNIZED DRUG - OTHER] IV SCH (14:23)
[2018-06-27] MEDS: SODIUM ACETATE IV SCH (14:23)
--- NOTE | 2018-06-27 16:01 | PRG ---
DATE OF SERVICE: 06/27/2018 SUBJECTIVE: The patient is in the ICU, currently being ventilated. She is awake and alert, but not following commands and not communicating with staff. Does not respond appropriately to commands. Nursing denies any acute events overnight. Reports that the patient's family would like to continue dialysis, but prefer no CPR and no trach or PEG. OBJECTIVE: VITAL SIGNS: Blood pressure 133/44, heart rate 67, respirations 14, oxygen saturation 98% and intubated. GENERAL: Elderly female, lying in bed, not participating in care. LUNGS: ET tube in place. Equal chest rise and fall. Clear to auscultation bilaterally. CARDIAC: Regular rate and rhythm. No murmurs, gallops, or rubs. ABDOMEN: Soft with decreased bowel sounds, mildly tender to palpation. EXTREMITIES: Gross motor and sensation intact. 2+ pulses in all extremities. Swelling in bilateral upper and lower extremities with erythema noted. LABORATORY FINDINGS: White blood cell count 29.9, hemoglobin 6.7, hematocrit 19.3, platelets 274. Sodium 134, potassium 3.4, chloride 98, carbon dioxide 26, BUN 56, creatinine 2.07, glucose 171, phos 2.2, magnesium 2.0. ASSESSMENT: 1. Acute respiratory failure. 2. Malnutrition with failure to thrive. 3. Poor functional status. 4. Acute renal failure, currently on hemodialysis. 5. Colon cancer, obstructing, status post colectomy. PLAN: The patient's prognosis is very poor and ICU team has been discussing her status with the family. Family has asked to continue dialysis, but do not want the patient to be shocked or receive CPR. They are also denying a trach and PEG. The patient's family was not at bedside during rounds this morning and we were not able to discuss the patient's condition further with the family at that time. Surgery will continue to follow, but recommending no additional operative interventions at this time. The patient was seen and examined this morning during rounds with Dr. Cohen and myself. Job ID: [id number]
[2018-06-28] MEDS: Propofol 1,000 MG/100 ML VIAL IV PRN ×2 (01:55→06:18)
[2018-06-28] MEDS: methylPREDNISolone Sod Succ 40 MG VIAL IVP SCH (02:00)
[2018-06-28] MEDS: Piperacillin/Tazobactam 2.25 GM in Sodium Chloride 0.9% 100 ML IVPB SCH (04:38)
[2018-06-28 04:54] LABS: Hemoglobin 7.3 g/dL (12.0-16.0); Mean Corpuscular HGB CONC 32.2 g/dL (32.0-36.0); Mean Corpuscular Hemoglobin 30.5 pg (27.0-31.0); Mean Corpuscular Volume 94.6 fL (78.0-98.0); Mean Platelet Volume 8.3 fL (7.4-10.4); Platelet Count 338 thou/uL (130-400); RBC Distribution Width 14.9 % (11.5-14.5); Red Blood Cell (RBC) Count 2.38 mill/uL (4.20-5.40); White Blood Cell (WBC) Count 44.1 thou/uL (4.8-10.8)
[2018-06-28 05:03] LABS: Anion Gap 17 mmol/L (10-20); BUN (Urea Nitrogen) 82 mg/dL (9.8-20.1); Calc. Creatinine Clearance 20 mL/min (70-130); Carbon Dioxide 22 mmol/L (23-31); Chloride 93 mmol/L (98-107); Estimated GFR-MDRD 17; Glucose 156 mg/dL (83-110); Potassium 3.8 mmol/L (3.5-5.1); Sodium 128 mmol/L (136-145)
[2018-06-28] MEDS: Insulin Regular 300 UNITS/3 ML VIAL SC PRN (05:09)
[2018-06-28] MEDS: Metoclopramide HCl 10 MG/2 ML VIAL IVP SCH (05:09)
[2018-06-28 05:10] LABS: Magnesium 2.1 mg/dL (1.6-2.6); Phosphorus 3.5 mg/dL (2.3-4.7)
[2018-06-28] MEDS: Levothyroxine 100 MCG SDV IVP SCH (05:10)
[2018-06-28 05:12] LABS: Band 7 % (5-11); Hypochromia SLIGHT = 6-15 cells (100X) (0-5/hpf); Lymphocytes 6 % (21-51); MDiff Complete? YES; Neutrophil 87 % (42-75); Platelet Morphology Comment Appears Adequate
[2018-06-28 06:41] VITALS: BP 122/35
[2018-06-28 06:47] LABS: Actual Bicarbonate (HCO3a) 23.1 mEq/L (22-28); Base Excess (BEa) -3.2 mEq/L (-2.0 to +3.0); CO2 Tension 47.6 mmHg (35.0-45.0); Calcium, Ionized 1.08 mmol/L (1.12-1.30); Carboxyhemoglobin (COHb) 1.5 gm% (0.0-3.0); Hemoglobin (Hb) 7.4 g/dL (12.0-16.0); O2 Tension (PaO2) 73.8 mmHg (> 60.0); Potassium - ABG Lab 3.39 mmol/L (3.70-5.30)
[2018-06-28 06:48] LABS: Puncture Site RRA
--- NOTE | 2018-06-28 08:13 | PRG ---
DATE OF SERVICE: 06/28/2018 TIME SPENT: 35 minutes of critical care time. SUBJECTIVE: Ms. Barnes continues to struggle on mechanical ventilation. She is completely sedated with propofol, but apparently does wake up when the propofol is stopped. OBJECTIVE: VITAL SIGNS: Temperature is 97.8, pulse 76, blood pressure 148/41, O2 saturation 94%. She is currently on propofol drip. She is not requiring any vasopressors. A 24-hour intake 2725, output 1294. HEENT: Unremarkable. NECK: No JVD. CARDIAC: S1, S2. Irregularly irregular. LUNGS: Coarse breath sounds. ABDOMEN: Distended with fluid. EXTREMITIES: 3+ edema throughout. LABORATORY DATA: White blood cell count 44.1, up from 29.9, hemoglobin 7.3, hematocrit 22.6, and platelet count 338. PH 7.30, pCO2 of 47, PO2 of 73, that is on SIMV rate 14, tidal volume 350, PEEP 5, pressure support 16, FiO2 30%. Sodium 128, potassium 3.8, chloride 93, CO2 of 22, BUN 82, creatinine 2.7, glucose 156. Her chest x-ray demonstrates fairly clear lung mckeon. The dialysis catheter and triple-lumen catheter were noted to be in good position. ET tube is in good position. ASSESSMENT: 1. Persistent acute on chronic respiratory failure, requiring mechanical ventilation. 2. Severe underlying chronic obstructive pulmonary disease. 3. Severe neuromuscular weakness, which is not improving. 4. Status post laparotomy for obstructing colon cancer. 5. Metastatic colon cancer. 6. Postoperative ileus, requiring a laparotomy. PLAN: 1. Due to her severe neuromuscular weakness, she is not weanable at this time. I doubt that we could achieve weaning without tracheostomy placement. However, the family has said they do not think the patient would want tracheostomy placement. 2. Based on the above, I think the patient's prospects for recovery are almost zero. I would be fully supportive of efforts to move toward palliative care rather than continuing aggressive care. I have reviewed the orders on the chart. The patient is currently on broad-spectrum IV antibiotics. I do not see anything to add to that currently. Job ID: [id number]
[2018-06-28 08:22] VITALS: TEMP 98.8
[2018-06-28] MEDS: Pantoprazole 40 MG VIAL IVP SCH (08:32)
--- NOTE | 2018-06-28 08:43 | RAD ---
SINGLE VIEW CHEST: Date: 06/28/18 COMPARISON: 06/27/18. HISTORY: Ventilated patient with respiratory failure. FINDINGS: Single view of the chest shows a normal sized cardiomediastinal silhouette. The lines and tubes are u nchanged in position. Veil-like opacity in the inferior aspect of the right thorax may represent a la yering pleural effusion. IMPRESSION: Possible small right pleural effusion. POS: [facility]
[2018-06-28] MEDS ORDERED: methylPREDNISolone Sod Succ 40 MG VIAL IVP SCH ×2 (09:00)
[2018-06-28] MEDS ORDERED: Bacteriostatic Water 30 ML VIAL FS SCH ×2 (09:00→21:00)
[2018-06-28] MEDS: Morphine 2 MG/ML SYRINGE SLOW IVP PRN (09:17)
--- NOTE | 2018-06-28 10:30 | PRG ---
DATE OF SERVICE: 06/25/2018 SUBJECTIVE: The patient is seen and examined, still on life support, but hemodynamically stable. OBJECTIVE: HEENT EXAMINATION: Remarkable for endotracheal tube in place. CARDIOVASCULAR SYSTEM: First and second heart sounds were heard. RESPIRATORY SYSTEM: Revealed ventilator sounds. DIGESTIVE SYSTEM: Revealed positive bowel sounds. EXTREMITIES: Did show some peripheral edema. IMPRESSION: 1. Dense acute tubular necrosis, anuric. 2. Cardiopulmonary failure, on life support. 3. Metastatic colon carcinoma, status post bowel resection. 4. Hypovolemia. PLAN: 1. The patient is on hemodialysis with ultrafiltration as tolerated by hemodynamics. 2. Further management will be dependent on the clinical course and further decision from the family. Job ID: [id number]
--- NOTE | 2018-06-28 11:42 | PRG ---
DATE OF SERVICE: 06/27/2018 OBJECTIVE: VITAL SIGNS: The patient noted with the following vital signs. Blood pressure 113/73. HEENT: Remarkable for endotracheal tube in place. CARDIOVASCULAR: First and second heart sounds were heard. RESPIRATORY: Revealed ventilator sounds. DIGESTIVE: Positive bowel sounds. . LABORATORY INVESTIGATION: Showed a hemoglobin of 6.7 with a white count 29,000. Chemistry showed creatinine 2.07, BUN 56, potassium 3.4. IMPRESSION: 1. Hemodynamically-mediated acute tubular necrosis, undergoing hemodialysis. 2. Cardiopulmonary failure, on life support. 3. Metastatic colon cancer, status post colonic resection. PLAN: 1. The patient has had sessions of dialysis and will be given a break from dialysis. 2. I might need discussion about the end-of-life decision. 3. Further management to be dependent on the final decision of the family. The condition of the patient is grave. Job ID: [id number]
--- NOTE | 2018-06-28 13:39 | PRG ---
DATE OF SERVICE: 06/28/2018 Once sedation has been held, she does communicate appropriately while on the ventilator. She however is aneuric. Renal function improved. She maintains on dialysis. The patient's family has arrived from out of town. She has a relative, who is a critical care nurse for more than 20 years to help with the family decision. Palliative care has worked with the family. The wanted to speak to me this morning. I informed him that she has not made any progress and he has informed me that his has indicated that she wants all these tubes out of her and wants to stop care. We will plan to extubate her and plan palliative measures. She is DNR, agreed upon by the patient and family. She has persistent acute on chronic respiratory failure, severe underlying COPD, severe deconditioning and weakness, T4 colon cancer, obstructing with a colostomy, acute renal failure on dialysis. Family wishes DNR should be extubated. Job ID: [id number]
--- NOTE | 2018-06-29 05:34 | DIS ---
DATE OF ADMISSION: 06/04/2018 DATE OF DISCHARGE: 06/28/2018 DATE OF : 06/28/2018. HOSPITAL DIAGNOSES: 1. T4 obstructing colon cancer. 2. Severe chronic obstructive pulmonary disease, followed by Dr. Tsai as an outpatient. 3. Acute renal failure, necessitating hemodialysis catheter initiation of dialysis, Dr. Pierre consulted. 4. Respiratory failure, requiring mechanical ventilation. 5. Wound dehiscence, requiring return to the operating room. PROCEDURES THIS HOSPITALIZATION: 1. 06/05/2018, colonoscopy, Dr. Tinajero. 2. 06/05/2018, laparotomy, left colon resection with open abdomen, return to the operating room next day with definitive colostomy and wound closure. 3. 06/21/2018, closure of wound dehiscence. 4. Methicillin-resistant Staphylococcus bacteremia line sepsis. 5. 06/23/2018, placement of hemodialysis catheter cuffed tunneled in central line, removal of a PICC line. HISTORY OF PRESENT ILLNESS: An 83-year-old female, presented to the emergency room with abdominal distention, underwent a colonoscopy by Dr. Tinajero on an obstructing left colon mass. She underwent on the same anesthetic at the same time, laparotomy, colon resection, and perioperatively she suffered hypotension and required pressors, and thus, an open abdomen was left opened with colon stable. During the initial operation secondary to extensive adhesions, she had extensive adhesiolysis and had a mesenteric window with . There was question about ileal viability. She thus was treated with open abdomen on the ventilator and 2 days later returned to the operating room for definitive colostomy. She was weaned from the ventilator, seemed to be doing well. She was started on tube feedings, but on 06/21/2018, she suffered wound dehiscence, return to the operating room and remained on the ventilator after that. She had prior to that, suffered bacteremic episode secondary to a central line been present for just over a week. This was removed. A PICC line placed and then this eventually removed when she returned to the operating room for placement of a hemodialysis catheter in the central line. The PICC line was removed due to her renal failure status, patient progressed anuria, and multiple organ failure. Discussion held with the family revealed the patient did not want terminal care, family did not want to consider tracheostomy or PEG tube placement. Family arrived from out of state and out of town, and after family discussed matters, a decision was made to withdraw care as the patient would never want this and the potential of further return to any kind of independent living was essentially nonexistent. The patient was extubated and within 25 to 30 minutes was pronounced. Body released to the home. Job ID: [id number]
[2018-07-02] MEDS ORDERED: cloNIDine 0.1mg/24 Hour PATCH TD SCH (09:00)
== END 2018-06-28 10:34 | disposition expired | DRG 329 ==
LOC: ERS 20:19 → SURG B 21:19 → CCU 06-05 18:13 → IMCU/EMU 06-10 19:10 → SURG A 06-12 15:33 → CCU 06-17 12:26 → IMCU/EMU 06-19 13:48 → CCU 06-21 12:53
PROVIDERS: ADMIT Specialist; ATTEND Specialist
PROC: 0DTG0ZZ Resection of Left Large Intestine, Open Approach (ICD-10-PCS; principal; 2018-06-05)
PROC: 0DBB0ZZ Excision of Ileum, Open Approach (ICD-10-PCS; 2018-06-05)
PROC: 02HV33Z Insertion of Infusion Device into Superior Vena Cava, Percutaneous Approach (ICD-10-PCS; 2018-06-05)
PROC: 0DJD8ZZ Inspection of Lower Intestinal Tract, Via Natural or Artificial Opening Endoscopic (ICD-10-PCS; 2018-06-05)
PROC: 0DNB0ZZ Release Ileum, Open Approach (ICD-10-PCS; 2018-06-05)
PROC: 0DBU0ZX Excision of Omentum, Open Approach, Diagnostic (ICD-10-PCS; 2018-06-05)
PROC: 0BH17EZ Insertion of Endotracheal Airway into Trachea, Via Natural or Artificial Opening (ICD-10-PCS; 2018-06-05)
PROC: 5A1945Z Respiratory Ventilation, 24-96 Consecutive Hours (ICD-10-PCS; 2018-06-05)
PROC: 3E033XZ Introduction of Vasopressor into Peripheral Vein, Percutaneous Approach (ICD-10-PCS; 2018-06-05)
PROC: 30233K1 Transfusion of Nonautologous Frozen Plasma into Peripheral Vein, Percutaneous Approach (ICD-10-PCS; 2018-06-05)
PROC: 30233N1 Transfusion of Nonautologous Red Blood Cells into Peripheral Vein, Percutaneous Approach (ICD-10-PCS; 2018-06-05)
PROC: 30233R1 Transfusion of Nonautologous Platelets into Peripheral Vein, Percutaneous Approach (ICD-10-PCS; 2018-06-05)
PROC: 0D1M0Z4 Bypass Descending Colon to Cutaneous, Open Approach (ICD-10-PCS; 2018-06-07)
PROC: 02HV33Z Insertion of Infusion Device into Superior Vena Cava, Percutaneous Approach (ICD-10-PCS; 2018-06-17)
PROC: 3E0436Z Introduction of Nutritional Substance into Central Vein, Percutaneous Approach (ICD-10-PCS; 2018-06-17)
PROC: 0DH67UZ Insertion of Feeding Device into Stomach, Via Natural or Artificial Opening (ICD-10-PCS; 2018-06-21)
PROC: 0BH17EZ Insertion of Endotracheal Airway into Trachea, Via Natural or Artificial Opening (ICD-10-PCS; 2018-06-21)
PROC: 5A1955Z Respiratory Ventilation, Greater than 96 Consecutive Hours (ICD-10-PCS; 2018-06-21)
PROC: 0WQF0ZZ Repair Abdominal Wall, Open Approach (ICD-10-PCS; 2018-06-21)
PROC: 5A1D70Z Performance of Urinary Filtration, Intermittent, Less than 6 Hours Per Day (ICD-10-PCS; 2018-06-23)
PROC: 0JH63XZ Insertion of Tunneled Vascular Access Device into Chest Subcutaneous Tissue and Fascia, Percutaneous Approach (ICD-10-PCS; 2018-06-23)
PROC: 02HV33Z Insertion of Infusion Device into Superior Vena Cava, Percutaneous Approach (ICD-10-PCS; 2018-06-23)
PROC: 5A1D70Z Performance of Urinary Filtration, Intermittent, Less than 6 Hours Per Day (ICD-10-PCS; 2018-06-24)
PROC: 5A1D70Z Performance of Urinary Filtration, Intermittent, Less than 6 Hours Per Day (ICD-10-PCS; 2018-06-25)
PROC: 5A1D70Z Performance of Urinary Filtration, Intermittent, Less than 6 Hours Per Day (ICD-10-PCS; 2018-06-26)
DX: C18.4 Malignant neoplasm of transverse colon (principal); N17.0 Acute kidney failure with tubular necrosis; T80.211A Bloodstream infection due to central venous catheter, initial encounter; E43 Unspecified severe protein-calorie malnutrition; A41.02 Sepsis due to Methicillin resistant Staphylococcus aureus; J96.01 Acute respiratory failure with hypoxia; K56.7 Ileus, unspecified; E87.1 Hypo-osmolality and hyponatremia; E87.2 Acidosis; C78.6 Secondary malignant neoplasm of retroperitoneum and peritoneum; T81.32XA Disruption of internal operation (surgical) wound, not elsewhere classified, initial encounter; J44.1 Chronic obstructive pulmonary disease with (acute) exacerbation; I73.9 Peripheral vascular disease, unspecified; I10 Essential (primary) hypertension; E03.9 Hypothyroidism, unspecified; E87.6 Hypokalemia; E87.70 Fluid overload, unspecified; E86.0 Dehydration; I48.91 Unspecified atrial fibrillation; E77.8 Other disorders of glycoprotein metabolism; D50.0 Iron deficiency anemia secondary to blood loss (chronic); R62.7 Adult failure to thrive; Z51.5 Encounter for palliative care; Z66 Do not resuscitate; K66.0 Peritoneal adhesions (postprocedural) (postinfection); Z68.36 Body mass index [BMI] 36.0-36.9, adult; Z87.891 Personal history of nicotine dependence; Z79.02 Long term (current) use of antithrombotics/antiplatelets; Z79.899 Other long term (current) drug therapy; Z95.820 Peripheral vascular angioplasty status with implants and grafts; Y92.239 Unspecified place in hospital as the place of occurrence of the external cause; Y83.6 Removal of other organ (partial) (total) as the cause of abnormal reaction of the patient, or of later complication, without mention of misadventure at the time of the procedure
CPT/HCPCS: 36415; 36416; 36430; 36569; 71045; 74018; 74160; 76770; 80048; 80053; 80202; 82271; 82378; 82533; 82805; 83735; 84100; 84134; 85007; 85025; 85027; 85060; 85610; 86850; 86900; 86901; 87040; 87077; 87086; 87149; 87186; 87340; 88309; 90935; 93005; 93306; 94002; 94003; 94640; 94660; 96374; A4216; C1751; C1752; C1769; C9113; G0257; J0131; J0171; J0360; J0610; J0670; J1450; J1642; J1644; J1650; J1720; J1815; J1885; J1940; J2001; J2060; J2185; J2270; J2370; J2405; J2543; J2704; J2765; J2920; J3010; J3370; J3475; J3480; J3490; J7050; J7070; J7120; J7620; J7626; P9016; P9035; P9047; P9059; Q9966; S0028